=== PATIENT | female | born 1955 | race Caucasian/White ===

== ENCOUNTER → 2018-07-26 14:39 | Outpatient (CLI) | payer MEDICARE, MEDICAID, SELFPAY ==
--- NOTE | 2018-07-26 14:51 | RAD_ITS ---
STUDY: X-RAY - CERVICAL SPINE REASON FOR EXAM: Female, 63 years old. Chronic left neck pain radiating all the way down spine. TECHNIQUE: 3 view(s) of the cervical spine were obtained on 4 images. COMPARISON: None FINDINGS: There are degenerative changes of the anterior atlantoaxial articulation. Normal odontoid process. Normal cervical lordosis. There is mild anterior endplate spondylosis at C5-6 and C6-7. There is mild to moderate degenerative discogenic narrowing at C5-6 and C6-7 as well. Were multilevel degenerative arthroses of the cervical facet articulations. The vertebral soft tissue structures are unremarkable. There is no demonstrated osseous destructive process or acute fracture of the cervical spine. RAD/Cerv Spine 2 or 3 Views IMPRESSION: Degenerative changes of the cervical spine, as described. Electronically Signed: Devonte Higginbotham MD at 15:48 EST , Service support ,
--- NOTE | 2018-07-26 14:52 | RAD_ITS ---
STUDY: X-RAY - LUMBAR SPINE REASON FOR EXAM: Female, 63 years old. Chronic pain. TECHNIQUE: 3 view(s) of the lumbar spine were obtained. COMPARISON: None FINDINGS: Normal lumbar lordosis. There is no substantial scoliosis. There is a normal alignment of the vertebrae. There is anterior wedging of the T12 vertebra and multilevel degenerative changes with bridging anterolateral osteophytes of the visualized lower thoracic spine. Bridging anterior osteophytes also extend across the T12-L1 interspace. There is multilevel endplate spondylosis of the lumbar vertebrae, most prominent at L1-2. There is multi-level degenerative disc disease with multi-level mild disc space narrowing. There is no demonstrated fracture. There are degenerative arthroses of the mid to lower lumbar facet articulations. The soft tissue structures are unremarkable. RAD/Lumbar Spine 2 or 3 Views IMPRESSION: Degenerative changes of the spine, as detailed above. Electronically Signed: Devonte Higginbotham MD at 15:46 EST , Service support ,
--- OUTSIDE RECORDS SUMMARY | 2018-09-21 00:54 | XMS RPT_ITS ---
:1955 Author Organization OHIP Care Team Providers Name Role Phone Conchita Alcocer Attending Unavailable Conchita Alcocer Referring Unavailable MARIA DEL ROSARIOPRADEEP STEPHENSON Attending Unavailable MARIA DEL ROSARIO, PRADEEP Referring Unavailable MARIA DEL ROSARIO, A[place]A Admitting Unavailable TONNY EPPS Primary Care Unavailable MARIA DEL ROSARIO, PRADEEP Attending Unavailable TONNY EPPS Referring Unavailable TONNY EPPS Primary Care Unavailable PRADEEP MIX Attending Unavailable JORDAN EPPS Primary Care Unavailable JORDAN EPPS Primary Care Unavailable PRESTON MILLS Attending Unavailable ARABELLA LOVE Attending Unavailable CASSIDY NATH Attending Unavailable ABHI SANDOVAL TRACE EVIDENCE TECHNICIAN-C Consulting Unavailable ARABELLA LOVE Attending Unavailable CASSIDY NATH Attending Unavailable ARABELLA LOVE Attending Unavailable LINDSAY VALLE Consulting Unavailable SHAMIR MEDINA D.O. Consulting Unavailable MASOUD FINLEY Admitting Unavailable MASOUD FINLEY Attending Unavailable WAKE, CASSIDY Ashford Attending Unavailable CATE-LEXUS THACKER Consulting Unavailable ARABELLA LOVE Attending Unavailable SARIAH, CASSIDY Ashford Attending Unavailable IVAN, ARABELLA Attending Unavailable MAYA, -LYDIA Jenkins Attending Unavailable ALVINO, -FATOU Chen Consulting Unavailable IVAN, ARABELLA Attending Unavailable IVAN, ARABELLA Attending Unavailable IVAN, ARABELLA Attending Unavailable QUIROGADIANNE RODRIGUEZ Consulting Unavailable QUIROGADIANNE RODRIGUEZ Attending Unavailable IVAN, ARABELLA Attending Unavailable VOLNGUYỄN Alvarenga Consulting Unavailable NATALIIA, [place] M Admitting Unavailable NATALIIA, [place] M Attending Unavailable IVAN, ARABELLA Attending Unavailable ELIZABETH KO M.D. Attending Unavailable IVAN, ARABELLA Attending Unavailable IVAN, ARABELLA Attending Unavailable VONNIE AMADOR D.O. Consulting Unavailable NATALIIA, [place] M Admitting Unavailable NATALIIA, [place] M Attending Unavailable IVAN, ARABELLA Attending Unavailable PEARCH, ADRIAN L Consulting Unavailable IVAN, ARABELLA Attending Unavailable PROBLEMS PROBLEMS DATE TYPE CONDITION / CODE ATTENDING STATUS SOURCE 06/14/2016 Unknown Vitamin D MARIA DEL ROSARIO, AASIM Active [place] deficiency, [facility]Care unspecified / System E55.9(ICD-10) Repository 08/04/2015 Unknown Age-related MARIA DEL ROSARIO, AASIM Active [facility] osteoporosis [facility]Care without current System pathological Repository fracture / M81.0(ICD-10) 08/04/2015 Unknown Primary MARIA DEL ROSARIO, AASIM Active [facility] generalized [facility] (osteo)arthritis / System M15.0(ICD-10) Repository 08/18/2017 Admitting Unknown / ARABELLA LOVE Active [facility] diagnosis UNK(Unknown) Hospital Repository PROCEDURES PROCEDURES No Procedure Records FoundRESULTS RESULTS LUMBAR SPINE 2 OR 3 Observed: 07/26/2018 Status: F Source: [place] [facility] 2:52 PM [facility] [place] [place] REPOSITORY [facility] Imaging Services [address] [place] [address] Lumbar Spine 2 or 3 Views MR#: [id number] Acct: [id number] Name: RASHAWN ALMEIDA I Rep #: [id number] : 1955 F 63 From: José Miguel Higginbotham MD PCP: Status: REG CLI Study: Lumbar Spine 2 or 3 Views Date of Exam: 07/26/18 Exam# [id number] Ordering Dr: Conchita Alcocer MD STUDY: X-RAY - LUMBAR SPINE REASON FOR EXAM: Female, 63 years old. Chronic pain. TECHNIQUE: 3 view(s) of the lumbar spine were obtained. COMPARISON: None FINDINGS: Normal lumbar lordosis. There is no substantial scoliosis. There is a normal alignment of the vertebrae. There is anterior wedging of the T12 vertebra and multilevel degenerative changes with bridging anterolateral osteophytes of the visualized lower thoracic spine. Bridging anterior osteophytes also extend across the T12-L1 interspace. There is multilevel endplate spondylosis of the lumbar vertebrae, most prominent at L1-2. There is multi-level degenerative disc disease with multi-level mild disc space narrowing. There is no demonstrated fracture. There are degenerative arthroses of the mid to lower lumbar facet articulations. The soft tissue structures are unremarkable. RAD/Lumbar Spine 2 or 3 Views IMPRESSION: Degenerative changes of the spine, as detailed above. Electronically Signed: Devonte Higginbotham MD at 15:46 EST , Service support , CC: Conchita Alcocer MD Side Panel Padder: Signed CERV SPINE 2 OR 3 Observed: 07/26/2018 Status: F Source: [place] [facility] 2:52 PM [facility] [place] [place] REPOSITORY [facility] Imaging Services [address] [place] [id number] Cerv Spine 2 or 3 Views MR#: [id number] Acct: [id number] Name: RASHAWN ALMEIDA I Rep #: [id number] : 1955 F 63 From: José Miguel Higginbotham MD PCP: Status: REG CLI Study: Cerv Spine 2 or 3 Views Date of Exam: 07/26/18 Exam# [id number] Ordering Dr: Conchita Alcocer MD STUDY: X-RAY - CERVICAL SPINE REASON FOR EXAM: Female, 63 years old. Chronic left neck pain radiating all the way down spine. TECHNIQUE: 3 view(s) of the cervical spine were obtained on 4 images. COMPARISON: None FINDINGS: There are degenerative changes of the anterior atlantoaxial articulation. Normal odontoid process. Normal cervical lordosis. There is mild anterior endplate spondylosis at C5-6 and C6-7. There is mild to moderate degenerative discogenic narrowing at C5-6 and C6-7 as well. Were multilevel degenerative arthroses of the cervical facet articulations. The vertebral soft tissue structures are unremarkable. There is no demonstrated osseous destructive process or acute fracture of the cervical spine. RAD/Cerv Spine 2 or 3 Views IMPRESSION: Degenerative changes of the cervical spine, as described. Electronically Signed: Devonte Higginbotham MD at 15:48 EST , Service support , CC: Conchita Alcocer MD Side Panel Padder: Signed THERAPY NT Observed: 07/21/2018 Status: COMPLETED Source: [place] 4:50 PM [facility] [place] REPOSITORY [facility] ID: [id number] Author: Provider [facility] Service: (none) Author Type: Physician Type: Therapy (PT/OT/Speech/Resp) Filed: 07/21/2018 4:59 PM Note Text: [place] [id number] PHYSICAL THERAPY REPORT Patient: GRAYSONRASHAWNARABELLA GREGORY C.N.P. [id number] [age] F Status: REG RCR PT PHYSICAL THERAPY OUTPATIENT INITIAL EVALUATION DATE 07/21/2018 PHYSICAL THERAPY DIAGNOSIS 1. Right shoulder pain. 2. Neck pain MEDICAL DIAGNOSIS 1. Impingement syndrome of the right shoulder - M75.41 ONSET DATE 06/15 CHIEF COMPLAINTS AND FUNCTIONAL LIMITATIONS 1. The patient complains of having increased pain in the right shoulder and neck which does limit her abilities to rest as well as to perform any ADLs at home. PERSONAL FACTORS AND CO-MORBIDITIES The patient reports having a past medical history of widespread pain as well as numerous surgeries and high blood pressure. HISTORY The patient reports that for the last month or so she has noticed an increase in right shoulder pain. She states insidious onset it has been getting worse. The patient is left-handed and states that the pain has been constant in the right shoulder. She complains of pain anywhere from the neck down to the elbow. She states that it is always in the shoulder described as being in her upper trapezius area as well as varying very stiff and or neck. She reports that wakes her up at night and gets worse with lifting and better with rest. She does have an MRI scheduled for this next . EXAMINATION AND OBJECTIVE FINDINGS The patient presents with active range of motion of the right shoulder into flexion to 63 degrees with pain, abduction 46 degrees with pain, external rotation to the upper trapezius with pain and internal rotation to the PSIS. The the patient did present with a negative belly press test, positive external rotation lag sign and a positive Mitchell-Ryan test. Cervical spine active range of motion into flexion 34 degrees, extension 5 degrees, right sidebending 10 degrees, left sidebending 15 degrees, right rotation 23 degrees and left rotation 29 degrees. CLINICAL PRESENTATION The patient displays a/an evolving clinical presentation with changing characteristics. CLINICAL DECISION MAKING Moderate complexity based upon the above history, examination and clinical presentation. G CODE RATIONALE The patient was given a G Code modifier of CM due to having pain up to and 8/10. ON TODAY'S VISIT The patient was given home exercise program consisting of stretching of the neck as well as taken through ultrasound for the right upper trapezius. PROBLEM LIST 1. Increased pain in the right shoulder and neck. 2. Right shoulder impingement syndrome. SHORT-TERM GOALS 1. The patient will be independent with HEP within 1-2 weeks for continued progress at home. LONG-TERM GOALS 1. The patient will demonstrate having active range of motion of the right shoulder into flexion to grossly greater than or equal to 130 degrees within 8 weeks to reach up overhead. 2. The patient will demonstrate having pain less than or equal to a 2/10 within the right shoulder and neck area within 10 weeks to improve tolerance at home. 3. The patient will demonstrate having rotation of the neck to be grossly greater than or equal to 50 degrees bilaterally within 8- 10 weeks to be able to turn her head while driving. PROGNOSIS AND REHABILITATION POTENTIAL The patient has a good rehabilitation potential to complete therapy goals. TREATMENT PLAN Treatment plan will consist of therapeutic exercises, stretching, strengthening, ultrasound modalities as needed and home exercise program. FREQUENCY AND DURATION The patient will attend therapy three times a week for 6-12 weeks. DISCHARGE PLAN The patient will be discharged from physical therapy upon completion of all goals, reaching a plateau with physical therapy and/or maximizing physical therapy prescription. Thank you for the referral of your patient. If you have any questions, please feel free to contact me at the [facility]. Dictated By: MACKENZIE MCKEON Signed By: MACKENZIE MCKEON 07/21/18 1654 << Signature on File>> Reported By: MACKENZIE MCKEON Signed By: MACKENZIE MCKEON Tests performed at: [address] [address] PHYSICAL THERAPY Observed: 07/21/2018 Status: F Source: [facility] 4:[address] [facility] [address] [address] PHYSICAL THERAPY REPORT Patient: JAYSHREE ALMEIDAARABELLA WANGNLashaun [id number] [age] F Status: REG RCR PT PHYSICAL THERAPY OUTPATIENT INITIAL EVALUATION DATE 07/21/2018 PHYSICAL THERAPY DIAGNOSIS 1. Right shoulder pain. 2. Neck pain MEDICAL DIAGNOSIS 1. Impingement syndrome of the right shoulder - M75.41 ONSET DATE 06/15 CHIEF COMPLAINTS AND FUNCTIONAL LIMITATIONS 1. The patient complains of having increased pain in the right shoulder and neck which does limit her abilities to rest as well as to perform any ADLs at home. PERSONAL FACTORS AND CO-MORBIDITIES The patient reports having a past medical history of widespread pain as well as numerous surgeries and high blood pressure. HISTORY The patient reports that for the last month or so she has noticed an increase in right shoulder pain. She states insidious onset it has been getting worse. The patient is left-handed and states that the pain has been constant in the right shoulder. She complains of pain anywhere from the neck down to the elbow. She states that it is always in the shoulder described as being in her upper trapezius area as well as varying very stiff and or neck. She reports that wakes her up at night and gets worse with lifting and better with rest. She does have an MRI scheduled for this next . EXAMINATION AND OBJECTIVE FINDINGS The patient presents with active range of motion of the right shoulder into flexion to 63 degrees with pain, abduction 46 degrees with pain, external rotation to the upper trapezius with pain and internal rotation to the PSIS. The the patient did present with a negative belly press test, positive external rotation lag sign and a positive Mitchell-Ryan test. Cervical spine active range of motion into flexion 34 degrees, extension 5 degrees, right sidebending 10 degrees, left sidebending 15 degrees, right rotation 23 degrees and left rotation 29 degrees. CLINICAL PRESENTATION The patient displays a/an evolving clinical presentation with changing characteristics. CLINICAL DECISION MAKING Moderate complexity based upon the above history, examination and clinical presentation. G CODE RATIONALE The patient was given a G Code modifier of CM due to having pain up to and 8/10. ON TODAY'S VISIT The patient was given home exercise program consisting of stretching of the neck as well as taken through ultrasound for the right upper trapezius. PROBLEM LIST 1. Increased pain in the right shoulder and neck. 2. Right shoulder impingement syndrome. SHORT-TERM GOALS 1. The patient will be independent with HEP within 1-2 weeks for continued progress at home. LONG-TERM GOALS 1. The patient will demonstrate having active range of motion of the right shoulder into flexion to grossly greater than or equal to 130 degrees within 8 weeks to reach up overhead. 2. The patient will demonstrate having pain less than or equal to a 2/10 within the right shoulder and neck area within 10 weeks to improve tolerance at home. 3. The patient will demonstrate having rotation of the neck to be grossly greater than or equal to 50 degrees bilaterally within 8-10 weeks to be able to turn her head while driving. PROGNOSIS AND REHABILITATION POTENTIAL The patient has a good rehabilitation potential to complete therapy goals. TREATMENT PLAN Treatment plan will consist of therapeutic exercises, stretching, strengthening, ultrasound modalities as needed and home exercise program. FREQUENCY AND DURATION The patient will attend therapy three times a week for 6-12 weeks. DISCHARGE PLAN The patient will be discharged from physical therapy upon completion of all goals, reaching a plateau with physical therapy and/or maximizing physical therapy prescription. Thank you for the referral of your patient. If you have any questions, please feel free to contact me at the [facility]. Dictated By: MACKENZIE MCKEON Signed By: MACKENZIE MCKEON 07/21/18 3423 << Signature on File>> Reported By: MACKENZIE MCKEON Signed By: MACKENZIE MCKEON Tests performed at: [address] [address] PROGRESS Observed: 07/13/2018 Status: COMPLETED Source: [place] 11:46 AM [facility] REPOSITORY [facility] ID: [id number] Author: Jonathan Pugh) Kirsty Service: (none) Author Type: (none) Type: Progress Notes Filed: 07/13/2018 11:51 AM Note Text: DIRECTOR OF INSTRUCTION EMERGENCY DEPARTMENT FOLLOW UP INITIAL CONTACT Provider Action/FYI: Going to Follow up with [facility] on 07/17/18. Initial contact with patient post discharge, spoke to Patient. Patient identified by name and date : YES SUMMARY: -Patient discharged from [facility] ED on 07/12/18. -Follow up appointment on declined appointment at this time . -Medication review done yes. -Presented with: Right Shoulder Pain CONCERNS: Patient states I am supposed to follow with [facility] on Tuesday , I am just going to follow up with them right now NEW MEDICATIONS: Naproxen x 5 days MEDS HELD/DISCONTINUED: None BRIEF ED COURSE: DX Right shoulder pain. Arthritis Jonathan Zambrano RN CNPTOUTREACH Observed: 07/13/2018 Status: COMPLETED Source: [place] 12:00 AM [facility] REPOSITORY Patient Outreach (FMUPNE) RASHAWN ALMEIDA ([id number]) 1955 F Date Time Provider Department 07/13/18 JONATHAN ZAMBRANO) KUMAR During your visit today, we recorded the following information about you: Jonathan Zambrano RN 07/13/2018 11:51 AM Signed DIRECTOR OF INSTRUCTION EMERGENCY DEPARTMENT FOLLOW UP INITIAL CONTACT Provider Action/FYI: Going to Follow up with [facility] on 07/17/18. Initial contact with patient post discharge, spoke to Patient. Patient identified by name and date : YES SUMMARY: -Patient discharged from [facility] ED on 07/12/18. -Follow up appointment on declined appointment at this time . -Medication review done yes. -Presented with: Right Shoulder Pain CONCERNS: Patient states I am supposed to follow with [facility] on Tuesday , I am just going to follow up with them right now NEW MEDICATIONS: Naproxen x 5 days MEDS HELD/DISCONTINUED: None BRIEF ED COURSE: DX Right shoulder pain. Arthritis Jonathan Zambrano RN Allergies As of Date: 07/13/2018 Noted Allergy Reaction BACTRIM (SULFAMETHOXAZOLE-TRIMETH*05/25/2018 8 - GI Upset Date Reviewed: 07/04/2018 Reviewed by: Denise Peck - Fully Assessed Prescriptions as of 07/13/2018 Sig: DICLOFENAC 1 % TOPICAL GEL Apply 4 g to affected area ev* PROMETHAZINE-DM 6.25 MG-15 MG* Take 5 mL by mouth four times* ALBUTEROL SULFATE HFA 90 MCG/* Inhale 2 Puffs as instructed * LORATADINE 10 MG TABLET Take 1 tablet by mouth once d* ALPRAZOLAM 0.5 MG TABLET Take 1 tablet by mouth twice * AMLODIPINE 5 MG TABLET Take 1 tablet by mouth once d* ESCITALOPRAM 5 MG TABLET Take 1 tablet by mouth once d* GABAPENTIN 300 MG CAPSULE Take 1 capsule by mouth twice* LEVOTHYROXINE 88 MCG TABLET Take 1 tablet by mouth once d* OXYCODONE-ACETAMINOPHEN 7.5 M* Take by mouth. MIRALAX ORAL Take 1 Tablespoonful by mouth* OXYGEN (HOME THERAPY) Inhale 2 L/min as instructed * Problem List As Of Date 07/13/2018 Noted Resolved Obesity, Class II, BMI 35-39.9 [E66.9] INVALID FOR* Anxiety [F41.9] INVALID FOR* Asthma [J45.909] INVALID FOR* Dependence on supplemental oxygen [Z99.81] INVALID FOR* Diverticulosis [K57.90] INVALID FOR* DJD (degenerative joint disease) [M19.90] INVALID FOR* GERD (gastroesophageal reflux disease) [K21.9] INVALID FOR* History of cholecystectomy [Z90.49] INVALID FOR* History of hysterectomy [Z90.710] INVALID FOR* Hx of carpal tunnel repair [Z98.890] INVALID FOR* Postoperative state [Z98.890] INVALID FOR* Hx of thyroidectomy [Z98.890] INVALID FOR* Hypertension [I10] INVALID FOR* Hypothyroidism [E03.9] INVALID FOR* Osteoporosis [M81.0] INVALID FOR* Partial small bowel obstruction (HCC) [K56.600] INVALID FOR* Status post rotator cuff repair [Z98.890] INVALID FOR* Encounter Status:Closed by JONATHAN ZAMBRANO on 07/13/18 ED PROV NOTE Observed: 07/12/2018 Status: COMPLETED Source: [place] 5:01 PM [facility] REPOSITORY [facility] ID: [id number] Author: Tonny Bell Service: (none) Author Type: Physician Type: ED Provider Notes Filed: 07/12/2018 5:42 PM Note Text: [facility] [place] [facility] [place] [address] HEALTH INFORMATION MANAGEMENT EMERGENCY DEPARTMENT REPORT Patient: RASHAWN ALMEIDA JEFFREY M.D. [id number] [age] F Status: DEP ER ED Date of Service: 07/12/18 CHIEF COMPLAINT/HISTORY OF PRESENT ILLNESS A 63-year-old female seen with Adrian Arias, nurse practitioner. She is a right-hand dominant female who is having right shoulder pain. It goes toward the neck and down the right upper arm. She does a lot of guitar playing, and that really bothers her. Denies numbness in the hand. PHYSICAL EXAMINATION Tenderness over the deltoid area in the right shoulder, fairly localized. Mild tenderness in the right paracervical musculature. No neurovascular deficits of the arm. EMERGENCY DEPARTMENT COURSE On the x-ray, she has got off the acromion a small calcific spur that is developing. It is probably 7-8 mm in length. I think this may be the nidus for the point of inflammation. IMPRESSION Early calcific tendonitis, right shoulder. TREATMENT Anti-inflammatory, discharged home. <Electronically signed by TONNY BELL M.D.> 07/12/18 1741 TONNY BELL M.D. cc: TONNY BELL M.D.; ARABELLA LOVENLashaun << Signature on File>> Reported By: TONNY BELL M.D. Signed By: TONNY BELL M.D. Tests performed at: [address] [address] EMERGENCY DEPARTMENT Observed: 07/12/2018 Status: F Source: [place] [facility] 5:01 PM [facility] [place] [place] [address] HEALTH INFORMATION MANAGEMENT EMERGENCY DEPARTMENT REPORT Patient: RASHAWN ALMEIDA TONNY BELL M.D. [id number] [age] F Status: [facility] ER ED Date of Service: 07/12/18 CHIEF COMPLAINT/HISTORY OF PRESENT ILLNESS A 63-year-old female seen with Adrian Arias, nurse practitioner. She is a right-hand dominant female who is having right shoulder pain. It goes toward the neck and down the right upper arm. She does a lot of guitar playing, and that really bothers her. Denies numbness in the hand. PHYSICAL EXAMINATION Tenderness over the deltoid area in the right shoulder, fairly localized. Mild tenderness in the right paracervical musculature. No neurovascular deficits of the arm. EMERGENCY DEPARTMENT COURSE On the x-ray, she has got off the acromion a small calcific spur that is developing. It is probably 7-8 mm in length. I think this may be the nidus for the point of inflammation. IMPRESSION Early calcific tendonitis, right shoulder. TREATMENT Anti-inflammatory, discharged home. <Electronically signed by TONNY BELL M.D.> 07/12/18 1741 TONNY BELL M.D. cc: TONNY BELL M.D.; ARABELLA LOVE C.N.P. << Signature on File>> Reported By: TONNY BELL M.D. Signed By: TONNY BELL M.D. Tests performed at: [address] [address] ED PROV NOTE Observed: 07/12/2018 Status: COMPLETED Source: [place] 4:05 PM [facility] [place] REPOSITORY HNO ID: [id number] Author: Tonny Bell Service: (none) Author Type: Physician Type: ED Provider Notes Filed: 07/12/2018 4:49 PM Note Text: [facility] [place] [facility] [place] [address] HEALTH INFORMATION MANAGEMENT EMERGENCY DEPARTMENT REPORT Patient: JAYSHREE ALMEIDATONNY ABEL M.D. as dictated by ADRIAN ARIAS, DAREN [id number] [age] F Status: DEP ER ED Date of Service: 07/12/18 CHIEF COMPLAINT This is a 63-year-old female who presents with right shoulder pain. HISTORY OF PRESENT ILLNESS The patient does not know any specific injury. 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 She is left-handed actually. She has noticed just over the last 3 weeks she has developed this pain and it has this been worse over the last couple days. PAST MEDICAL HISTORY Hypertension, COPD, osteoporosis, hypothyroidism, anxiety, depression, chronic pain. PAST SURGICAL HISTORY She has had hernia repairs, thyroid, left knee, left rotator, tubal ligation, cholecystectomy, hysterectomy. SOCIAL HISTORY No alcohol, drug or tobacco use. She is . ALLERGIES No known allergies. MEDICATIONS She takes Fosamax, HydroDIURIL, ProAir, Voltaren gel topically, Norvasc, Xanax, Synthroid, Lexapro, Neurontin and Percocet. REVIEW OF SYSTEMS The patient denies any fever or chills and no redness or swelling to the joint. No weakness or syncope. No upper respiratory symptoms, cough or shortness of breath. No chest pain or palpitations. She is complaining of lateral right shoulder pain worse with movement. She states she has decreased range of motion due to pain. No numbness or paresthesia. PHYSICAL EXAMINATION Blood pressure 187/120. We will repeat this. Temperature 97.7, pulse 75, respirations 18, 96% on room air. Pain 10/10. This is a well-nourished, well-hydrated patient who is alert and active in the room. She is in no distress. Her head is atraumatic, normocephalic. Neck is supple. No neck pain, drooling or meningismus. No cervical lymphadenopathy. Lungs are clear throughout all lung germain with good air exchange. Her heart has a regular rate and rhythm without murmur, rub or gallop. Abdomen is large, round, soft, nontender to palpation. Her right shoulder is normal in appearance. There is no redness, no swelling. She is painful with palpation just over the lateral aspect of the shoulder. She has limited range of motion on abduction. She is unable to cross her arm behind her back. She does cross it in front of her normally. She has normal sensation, normal skin color and warmth. Radial pulses are 2+. Normal capillary refill. Her elbow has a normal range of motion, as well as the wrist. EMERGENCY DEPARTMENT COURSE This patient states she is intolerant to steroids. She was told not to take steroids she is not quite sure why but an oncologist told her not to take them, so she will be given a prescription for 5 days of naproxen. The x-ray shows some arthritis. No fracture seen. No dislocation. The patient will rest the arm. She is going to use some of her diclofenac gel to the shoulder. She will rest it, take the medications as prescribed and follow up with Ortho. IMPRESSION Right shoulder pain. <Electronically signed by TONNY BELL M.D.> 07/12/18 1645 TONNY BELL M.D. cc: TONNY BELL M.D.; ARABELLA LOVENLashaun << Signature on File>> Reported By: TONNY BELL M.D. Signed By: TONNY BELL M.D. Tests performed at: [facility] [id number] [place], [place] [address] ED REPORT Observed: 07/12/2018 Status: F Source: [facility] 4:05 PM [place] [address] HEALTH INFORMATION MANAGEMENT EMERGENCY DEPARTMENT REPORT Patient: RASHAWN ALMEIDA JEFFREY M.D. as dictated by DAREN DAILEY [id number] F Status: DEP ER ED Date of Service: 07/12/18 CHIEF COMPLAINT This is a 63-year-old female who presents with right shoulder pain. HISTORY OF PRESENT ILLNESS The patient does not know any specific injury. 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 She is left-handed actually. She has noticed just over the last 3 weeks she has developed this pain and it has this been worse over the last couple days. PAST MEDICAL HISTORY Hypertension, COPD, osteoporosis, hypothyroidism, anxiety, depression, chronic pain. PAST SURGICAL HISTORY She has had hernia repairs, thyroid, left knee, left rotator, tubal ligation, cholecystectomy, hysterectomy. SOCIAL HISTORY No alcohol, drug or tobacco use. She is . ALLERGIES No known allergies. MEDICATIONS She takes Fosamax, HydroDIURIL, ProAir, Voltaren gel topically, Norvasc, Xanax, Synthroid, Lexapro, Neurontin and Percocet. REVIEW OF SYSTEMS The patient denies any fever or chills and no redness or swelling to the joint. No weakness or syncope. No upper respiratory symptoms, cough or shortness of breath. No chest pain or palpitations. She is complaining of lateral right shoulder pain worse with movement. She states she has decreased range of motion due to pain. No numbness or paresthesia. PHYSICAL EXAMINATION Blood pressure 187/120. We will repeat this. Temperature 97.7, pulse 75, respirations 18, 96% on room air. Pain 10/10. This is a well-nourished, well- hydrated patient who is alert and active in the room. She is in no distress. Her head is atraumatic, normocephalic. Neck is supple. No neck pain, drooling or meningismus. No cervical lymphadenopathy. Lungs are clear throughout all lung germain with good air exchange. Her heart has a regular rate and rhythm without murmur, rub or gallop. Abdomen is large, round, soft, nontender to palpation. Her right shoulder is normal in appearance. There is no redness, no swelling. She is painful with palpation just over the lateral aspect of the shoulder. She has limited range of motion on abduction. She is unable to cross her arm behind her back. She does cross it in front of her normally. She has normal sensation, normal skin color and warmth. Radial pulses are 2+. Normal capillary refill. Her elbow has a normal range of motion, as well as the wrist. EMERGENCY DEPARTMENT COURSE This patient states she is intolerant to steroids. She was told not to take steroids she is not quite sure why but an oncologist told her not to take them, so she will be given a prescription for 5 days of naproxen. The x-ray shows some arthritis. No fracture seen. No dislocation. The patient will rest the arm. She is going to use some of her diclofenac gel to the shoulder. She will rest it, take the medications as prescribed and follow up with Ortho. IMPRESSION Right shoulder pain. <Electronically signed by TONNY BELL M.D.> 07/12/18 1645 TONNY BELL M.D. cc: TONNY BELL M.D.; ARABELLA LOVE C.N.P. << Signature on File>> Reported By: TONNY BELL M.D. Signed By: TONNY BELL M.D. Tests performed at: [address] [address] SHOULDER MIN 2 VIEW Observed: 07/12/2018 Status: F Source: [place] 12:12 PM [facility] [place], [place] REPOSITORY [address] [address] Name: TALA ALMEIDALYN Phys: ADRIAN ARIAS (ED) : [birth year] Age: 63 Sex: F Acct: [id number] Loc: ED Exam Date: 07/12/18 Status: [facility] ER Radiology No.: [id number] Unit Number: [id number] Exam # Type/Exam [id number] RAD / SHOULDER MIN 2 VIEW RT PROCEDURE: Right shoulder radiographs. HISTORY: Pain. COMPARISON: 05/30/2014 FINDINGS: 2 views obtained. No visible fracture or dislocation. There is mild acromioclavicular joint degenerative change. There is some minimal calcific tendinitis of the rotator cuff. No bony lesions are identified. Soft tissues are unremarkable. IMPRESSION: No visible fracture or dislocation. Professional interpretation provided by [facility], [place] on [id number]. Thank you for this referral. <<Signature on File>> Reported By: ELIZABETH HERRERA M.D. Signed In NovaPro By: ELIZABETH HERRERA M.D. << Signature on File>> Reported By: ELIZABETH HERRERA M.D. Signed By: ELIZABETH HERRERA M.D. Tests performed at: [address] [address] PROGRESS Observed: 07/04/2018 Status: COMPLETED Source: [place] 4:00 PM [facility] REPOSITORY [facility] ID: [id number] Author: Arabella Love Service: (none) Author Type: Nurse Practitioner Type: Progress Notes Filed: 07/14/2018 1:25 AM Note Text: SUBJECTIVE: Rashawn Almeida is a 63 year old female here today acutely because pf concerns related to cough and congestion. She was previously evaluated in the office on on 06/19/2018. Her symptoms started one week ago. She started to fell better but then she worsened. Symptoms include productive cough, congestion, nasal drainage and sore throat. PAST SURGICAL HISTORY Procedure Laterality Date - ANESTHESIA KNEE, ARTHROSCOPIC Bilateral - CHOLECYSTECTOMY - COLONOSCOPY AND POLYPECTOMY - HAND SURGERY HX Left 11/18/2016 Trigger Finger - HERNIA REPAIR HX Right - HYSTERECTOMY - ROTATOR CUFF REPAIR Left - THYROIDECTOMY - TUBAL LIGATION ACTIVE PROBLEM LIST Obesity, Class II, Bmi 35-39.9 Anxiety Asthma Dependence On Supplemental Oxygen Diverticulosis Djd (Degenerative Joint Disease) Gerd (Gastroesophageal Reflux Disease) History of Cholecystectomy History of Hysterectomy Hx of Carpal Tunnel Repair Postoperative State Hx of Thyroidectomy Hypertension Hypothyroidism Osteoporosis Partial Small Bowel Obstruction (Hcc) Status Post Rotator Cuff Repair Social History Marital status: Legally Spouse name: Years of education: Number of children: Social History Main Topics Smoking status: Never Smoker Smokeless tobacco: Never Used Alcohol use: No Drug use: No Other Topics Concern Caffeine Concern No Current Outpatient Prescriptions: loratadine (CLARITIN) 10 mg tablet Take 1 tablet by mouth once daily. Promethazine-DM (PHENERGAN-DM) 6.25-15 mg/5 mL syrup Take 5 mL by mouth four times daily as needed for Cough. diclofenac sodium (VOLTAREN) 1 % topical gel Apply 4 g to affected area every 6 hours as needed (joint pain). ALPRAZolam (XANAX) 0.5 mg tablet Take 1 tablet by mouth twice daily as needed for Anxiety. amLODIPine (NORVASC) 5 mg tablet Take 1 tablet by mouth once daily. escitalopram oxalate (LEXAPRO) 5 mg tablet Take 1 tablet by mouth once daily. gabapentin (NEURONTIN) 300 mg capsule Take 1 capsule by mouth twice daily. levothyroxine (SYNTHROID) 88 mcg tablet Take 1 tablet by mouth once daily. oxyCODONE-acetaminophen (PERCOCET) 7.5-325 mg tablet Take by mouth. polyethylene glycol 3350 (MIRALAX ORAL) Take 1 Tablespoonful by mouth once daily. OXYGEN, HOME THERAPY, Inhale 2 L/min as instructed daily at bedtime. No current facility-administered medications for this visit. REVIEW OF SYSTEMS: Review of Systems Constitutional: Positive for fatigue. HENT: Positive for postnasal drip, rhinorrhea, sinus pressure and sore throat. Negative for ear discharge and ear pain. Eyes: Negative. Respiratory: Positive for cough and wheezing. Endocrine: Negative. Genitourinary: Positive for difficulty urinating. Negative for dysuria. Musculoskeletal: Positive for arthralgias. Skin: Negative. Negative for rash. Allergic/Immunologic: Negative. Neurological: Negative. Negative for dizziness and weakness. Hematological: Negative. Psychiatric/Behavioral: Negative. PHYSICAL EXAMINATION: There were no vitals taken for this visit. No weight on file for this encounter. Physical Exam Constitutional: She is oriented to person, place, and time. She appears well-developed and well-nourished. HENT: Head: Normocephalic and atraumatic. Right Ear: Tympanic membrane normal. Left Ear: Tympanic membrane normal. Nose: Rhinorrhea present. Mouth/Throat: Uvula is midline, oropharynx is clear and moist and mucous membranes are normal. Eyes: Conjunctivae are normal. Neck: Neck supple. No thyromegaly present. Cardiovascular: Normal rate, regular rhythm and normal heart sounds. Pulmonary/Chest: Effort normal. No respiratory distress. She has wheezes. Abdominal: Soft. There is no tenderness. Musculoskeletal: She exhibits no edema. Lymphadenopathy: She has no cervical adenopathy. Neurological: She is alert and oriented to person, place, and time. Skin: Skin is warm and dry. No rash noted. Psychiatric: She has a normal mood and affect. Her behavior is normal. Vitals reviewed. ASSESSMENT/PLAN: 1. Acute bronchitis with chronic obstructive pulmonary disease (COPD) ([facility]) - ICD9: 491.22, ICD10: J44.0, J20.9 (primary diagnosis) - XR CHEST 2V FRONTAL/LAT - DOXYCYCLINE MONOHYDRATE 100 MG CAPSULE, precautions reviewed - ALBUTEROL SULFATE HFA 90 MCG/ACTUATION AEROSOL INHALER 2. URI, acute - ICD9: 465.9, ICD10: J06.9 - Discussed viral etiology and rationale for treatment. - Symptomatic treatment with prn analgesia - Supportive care with fluids and rest - PROMETHAZINE-DM 6.25 MG-15 MG/5 ML SYRUP 3. Cough - ICD9: 786.2, ICD10: R05 - PROMETHAZINE-DM 6.25 MG-15 MG/5 ML SYRUP 4. Chronic midline low back pain without sciatica - ICD9: 724.2, 338.29, ICD10: M54.5, G89.29 Chronic low back pain. Pt requesting referral to . Previously followed by Dr. Ko - CONSULT TO PAIN MGT 5. Osteoarthritis of both knees, unspecified osteoarthritis type - ICD9: 715.96, ICD10: M17.0 - CONSULT TO PAIN MGT ANESTHESIA 6. Obesity E66.9 Weight loss and increased activity recommended Arabella Love CNP A portion of this note was entered by ancillary personnel. The information has been reviewed and is an accurate reflection of the decisions I have made during the course of my encounter with this patient. . CNOV Observed: 07/04/2018 Status: COMPLETED Source: [place] 3:40 PM [facility] REPOSITORY Office Visit (FMUPNE) RASHAWN ALMEIDA ([id number]) 1955 F Date Time Provider Department 07/04/18 3:40 PM ARABELLA LOVE During your visit today, we recorded the following information about you: Temperature Pulse Respiration Blood pressure 98.7 degrees 87/minute 20/minute 122/76 Weight Height 93 kg 1.575 m Arabella Love CNP 07/14/2018 1:25 AM Signed SUBJECTIVE: Rashawn Almeida is a 63 year old female here today acutely because pf concerns related to cough and congestion. She was previously evaluated in the office on on 06/19/2018. Her symptoms started one week ago. She started to fell better but then she worsened. Symptoms include productive cough, congestion, nasal drainage and sore throat. PAST SURGICAL HISTORY Procedure Laterality Date - ANESTHESIA KNEE, ARTHROSCOPIC Bilateral - CHOLECYSTECTOMY - COLONOSCOPY AND POLYPECTOMY - HAND SURGERY HX Left 11/18/2016 Trigger Finger - HERNIA REPAIR HX Right - HYSTERECTOMY - ROTATOR CUFF REPAIR Left - THYROIDECTOMY - TUBAL LIGATION ACTIVE PROBLEM LIST Obesity, Class II, Bmi 35-39.9 Anxiety Asthma Dependence On Supplemental Oxygen Diverticulosis Djd (Degenerative Joint Disease) Gerd (Gastroesophageal Reflux Disease) History of Cholecystectomy History of Hysterectomy Hx of Carpal Tunnel Repair Postoperative State Hx of Thyroidectomy Hypertension Hypothyroidism Osteoporosis Partial Small Bowel Obstruction (Hcc) Status Post Rotator Cuff Repair Social History Marital status: Legally Spouse name: Years of education: Number of children: Social History Main Topics Smoking status: Never Smoker Smokeless tobacco: Never Used Alcohol use: No Drug use: No Other Topics Concern Caffeine Concern No Current Outpatient Prescriptions: loratadine (CLARITIN) 10 mg tablet Take 1 tablet by mouth once daily. Promethazine-DM (PHENERGAN-DM) 6.25-15 mg/5 mL syrup Take 5 mL by mouth four times daily as needed for Cough. diclofenac sodium (VOLTAREN) 1 % topical gel Apply 4 g to affected area every 6 hours as needed (joint pain). ALPRAZolam (XANAX) 0.5 mg tablet Take 1 tablet by mouth twice daily as needed for Anxiety. amLODIPine (NORVASC) 5 mg tablet Take 1 tablet by mouth once daily. escitalopram oxalate (LEXAPRO) 5 mg tablet Take 1 tablet by mouth once daily. gabapentin (NEURONTIN) 300 mg capsule Take 1 capsule by mouth twice daily. levothyroxine (SYNTHROID) 88 mcg tablet Take 1 tablet by mouth once daily. oxyCODONE-acetaminophen (PERCOCET) 7.5-325 mg tablet Take by mouth. polyethylene glycol 3350 (MIRALAX ORAL) Take 1 Tablespoonful by mouth once daily. OXYGEN, HOME THERAPY, Inhale 2 L/min as instructed daily at bedtime. No current facility-administered medications for this visit. REVIEW OF SYSTEMS: Review of Systems Constitutional: Positive for fatigue. HENT: Positive for postnasal drip, rhinorrhea, sinus pressure and sore throat. Negative for ear discharge and ear pain. Eyes: Negative. Respiratory: Positive for cough and wheezing. Endocrine: Negative. Genitourinary: Positive for difficulty urinating. Negative for dysuria. Musculoskeletal: Positive for arthralgias. Skin: Negative. Negative for rash. Allergic/Immunologic: Negative. Neurological: Negative. Negative for dizziness and weakness. Hematological: Negative. Psychiatric/Behavioral: Negative. PHYSICAL EXAMINATION: There were no vitals taken for this visit. No weight on file for this encounter. Physical Exam Constitutional: She is oriented to person, place, and time. She appears well-developed and well-nourished. HENT: Head: Normocephalic and atraumatic. Right Ear: Tympanic membrane normal. Left Ear: Tympanic membrane normal. Nose: Rhinorrhea present. Mouth/Throat: Uvula is midline, oropharynx is clear and moist and mucous membranes are normal. Eyes: Conjunctivae are normal. Neck: Neck supple. No thyromegaly present. Cardiovascular: Normal rate, regular rhythm and normal heart sounds. Pulmonary/Chest: Effort normal. No respiratory distress. She has wheezes. Abdominal: Soft. There is no tenderness. Musculoskeletal: She exhibits no edema. Lymphadenopathy: She has no cervical adenopathy. Neurological: She is alert and oriented to person, place, and time. Skin: Skin is warm and dry. No rash noted. Psychiatric: She has a normal mood and affect. Her behavior is normal. Vitals reviewed. ASSESSMENT/PLAN: 1. Acute bronchitis with chronic obstructive pulmonary disease (COPD) ([facility]) - ICD9: 491.22, ICD10: J44.0, J20.9 (primary diagnosis) - XR CHEST 2V FRONTAL/LAT - DOXYCYCLINE MONOHYDRATE 100 MG CAPSULE, precautions reviewed - ALBUTEROL SULFATE HFA 90 MCG/ACTUATION AEROSOL INHALER 2. URI, acute - ICD9: 465.9, ICD10: J06.9 - Discussed viral etiology and rationale for treatment. - Symptomatic treatment with prn analgesia - Supportive care with fluids and rest - PROMETHAZINE-DM 6.25 MG-15 MG/5 ML SYRUP 3. Cough - ICD9: 786.2, ICD10: R05 - PROMETHAZINE-DM 6.25 MG-15 MG/5 ML SYRUP 4. Chronic midline low back pain without sciatica - ICD9: 724.2, 338.29, ICD10: M54.5, G89.29 Chronic low back pain. Pt requesting referral to . Previously followed by Dr. Ko - CONSULT TO PAIN MGT 5. Osteoarthritis of both knees, unspecified osteoarthritis type - ICD9: 715.96, ICD10: M17.0 - CONSULT TO PAIN MGT ANESTHESIA 6. Obesity E66.9 Weight loss and increased activity recommended Arabella Love CNP A portion of this note was entered by ancillary personnel. The information has been reviewed and is an accurate reflection of the decisions I have made during the course of my encounter with this patient. . Referring Provider: SELF [[id number]] Allergies As of Date: 07/04/2018 Noted Allergy Reaction BACTRIM (SULFAMETHOXAZOLE-TRIMETH*05/25/2018 8 - GI Upset Date Reviewed: 07/04/2018 Reviewed by: Denise Peck - Fully Assessed Reason for Visit: URI [115] Cmt: Still sick Cough [28] Fatigue [46] Reason For Visit History Recorded Primary Visit Diagnosis:Acute bronchitis with chronic obstructive pulmonary disease (COPD) ([facility]) [J44.0, J20.9] Other Visit Diagnoses:URI, acute [J06.9] Cough [R05] Chronic midline low back pain without sciatica [M54.5, G89.29] Osteoarthritis of both knees, unspecified osteoarthritis type [M17.0] Obesity, Class II, BMI 35-39.9 [E66.9] Order(s):Promethazine-DM (PHENERGAN-DM) 6.25-15 mg/5 mL syrupTake 5 mL by mouth four times daily as needed for Cough.Disp: 180 mLRfl: 0 XR CHEST 2V FRONTAL/LAT [[id number]] Order #: [id number] FUTURE [] doxycycline monohydrate (MONODOX) 100 mg capsuleTake 1 capsule by mouth twice daily for 7 days.Disp: 14 capsuleRfl: 0 albuterol HFA (PROAIR HFA) 90 mcg/actuation inhalerInhale 2 Puffs as instructed every 4 hours as needed for Wheezing/Shortness of Breath.Disp: 1 InhalerRfl: 2 CONSULT TO [facility] MGT ANESTHESIA [[id number]] Order #: [id number]: 1 Prescriptions as of 07/04/2018 Sig: PROMETHAZINE-DM 6.25 MG-15 MG* Take 5 mL by mouth four times* LORATADINE 10 MG TABLET Take 1 tablet by mouth once d* X DICLOFENAC 1 % TOPICAL GEL Apply 4 g to affected area ev* ALPRAZOLAM 0.5 MG TABLET Take 1 tablet by mouth twice * AMLODIPINE 5 MG TABLET Take 1 tablet by mouth once d* ESCITALOPRAM 5 MG TABLET Take 1 tablet by mouth once d* GABAPENTIN 300 MG CAPSULE Take 1 capsule by mouth twice* LEVOTHYROXINE 88 MCG TABLET Take 1 tablet by mouth once d* OXYCODONE-ACETAMINOPHEN 7.5 M* Take by mouth. MIRALAX ORAL Take 1 Tablespoonful by mouth* OXYGEN (HOME THERAPY) Inhale 2 L/min as instructed * DOXYCYCLINE MONOHYDRATE 100 M* Take 1 capsule by mouth twice* ALBUTEROL SULFATE HFA 90 MCG/* Inhale 2 Puffs as instructed * Problem List As Of Date 07/04/2018 Noted Resolved Obesity, Class II, BMI 35-39.9 [E66.9] INVALID FOR* Anxiety [F41.9] INVALID FOR* Asthma [J45.909] INVALID FOR* Dependence on supplemental oxygen [Z99.81] INVALID FOR* Diverticulosis [K57.90] INVALID FOR* DJD (degenerative joint disease) [M19.90] INVALID FOR* GERD (gastroesophageal reflux disease) [K21.9] INVALID FOR* History of cholecystectomy [Z90.49] INVALID FOR* History of hysterectomy [Z90.710] INVALID FOR* Hx of carpal tunnel repair [Z98.890] INVALID FOR* Postoperative state [Z98.890] INVALID FOR* Hx of thyroidectomy [Z98.890] INVALID FOR* Hypertension [I10] INVALID FOR* Hypothyroidism [E03.9] INVALID FOR* Osteoporosis [M81.0] INVALID FOR* Partial small bowel obstruction (HCC) [K56.600] INVALID FOR* Status post rotator cuff repair [Z98.890] INVALID FOR* Prescriptions ordered this encounter Disp Refills Start End PROMETHAZINE-DM 6.25 MG-15 MG/5 ML S* 180 * 0 07/04/2018 Route: ORAL Sig: Take 5 mL by mouth four times daily as needed for Cough. DOXYCYCLINE MONOHYDRATE 100 MG CAPSU* 14 c* 0 07/04/2018 07/11/2018 Route: ORAL Sig: Take 1 capsule by mouth twice daily for 7 days. ALBUTEROL SULFATE HFA 90 MCG/ACTUATI* 1 In* 2 07/04/2018 Route: INHALATION Sig: Inhale 2 Puffs as instructed every 4 hours as needed for Wheezing/Shortness of Breath. Medications Discontinued During This Encounter Promethazine-DM (PHENERGAN-DM) 6.25-* 180 * 0 06/19/2018 07/04/2018 Route: ORAL Sig: Take 5 mL by mouth four times daily as needed for Cough. Disc: Reason for discontinue is not on file. Disposition: Return if symptoms worsen or fail to improve. Follow-up and Disposition History Recorded Encounter Status:Closed by ARABELLA LOVE on 07/14/18 PROGRESS Observed: 06/19/2018 Status: COMPLETED Source: [place] 2:12 PM [facility] [place] REPOSITORY [facility] ID: [id number] Author: Arabella Love Service: (none) Author Type: Nurse Practitioner Type: Progress Notes Filed: 07/03/2018 11:00 AM Note Text: Transitional Care Management Progress Note The patients TCM visit was performed within the 7 days of discharge. The patient presented to [facility] ER on 06/12/18 due to abdominal pain and diarrhea. She was admitted due to a partial bowel obstruction, presumed to be related to adhesions. She was provided bowel rest and IV fluids. She declined use of NG tube. Today she reports her bowel are moving on a daily basis. She denies nausea, vomiting and abdominal pain. Today she also reports URI symptoms including nasal drainage, congestion and cough. Her cough is productive with clear mucous. She denies fever. There is no chest pain or wheezing. Symptoms began two days ago. She is not taking anything for her symptoms at this time. Patient's Date of discharge: 06/16/2018 Date of initial coordinator contact after discharge: 06/19/2018 Discharge diagnosis: Bowel Obstruction Medication review completed Yes I have reviewed the patient?s last hospital course including diagnostic testing performed during this hospitalization, their discharge medications, and my assessment and plan with the patient and any family members present at today?s visit. PAST MEDICAL HISTORY: Reviewed and updated ALLERGIES: Reviewed and updated MEDICATIONS: Reviewed and updated SOCIAL HISTORY: Reviewed and updated FAMILY HISTORY: Reviewed and updated Current Outpatient Prescriptions: - ALPRAZolam (XANAX) 0.5 mg tablet - amLODIPine (NORVASC) 5 mg tablet - escitalopram oxalate (LEXAPRO) 5 mg tablet - gabapentin (NEURONTIN) 300 mg capsule - levothyroxine (SYNTHROID) 88 mcg tablet - oxyCODONE-acetaminophen (PERCOCET) 7.5-325 mg tablet - diclofenac sodium (VOLTAREN) 1 % topical gel - polyethylene glycol 3350 (MIRALAX ORAL) - OXYGEN, HOME THERAPY, - codeine-guaiFENesin (CHERATUSSIN AC) 10-100 mg/5 mL syrup - hydroCHLOROthiazide (HYDRODIURIL, ESIDRIX) 25 mg tablet - cetirizine (ZYRTEC) 10 mg tablet REVIEW OF SYSTEMS Review of Systems Constitutional: Negative for chills, fatigue and fever. HENT: Positive for congestion and postnasal drip. Negative for ear pain and sore throat. Respiratory: Positive for cough and wheezing. Negative for chest tightness and shortness of breath. Cardiovascular: Negative for chest pain, palpitations and leg swelling. Gastrointestinal: Negative for abdominal pain, constipation, diarrhea, nausea and vomiting. Musculoskeletal: Negative for back pain, gait problem, joint swelling, myalgias and neck pain. Skin: Negative for rash and wound. Neurological: Negative for dizziness, numbness and headaches. Psychiatric/Behavioral: Negative for dysphoric mood. The patient is not nervous/anxious. PHYSICAL EXAM BP 132/86 Pulse 70 Temp 36.4 ?C (97.6 ?F) Resp 20 Ht 157.5 cm (5' 2) Wt 93.1 kg (205 lb 3.2 oz) SpO2 96% BMI 37.53 kg/m? BMI 37.53 kg/(m2) Physical Exam Constitutional: She is oriented to person, place, and time. Vital signs are normal. She appears well-developed and well-nourished. HENT: Head: Normocephalic and atraumatic. Right Ear: External ear normal. Left Ear: External ear normal. Nose: Nose normal. Mouth/Throat: Oropharynx is clear and moist. Eyes: Pupils are equal, round, and reactive to light. Conjunctivae and EOM are normal. Neck: Normal range of motion. Neck supple. No thyromegaly present. Cardiovascular: Normal rate, regular rhythm, normal heart sounds and intact distal pulses. Pulmonary/Chest: Effort normal. She has wheezes. She has no rales. She exhibits no tenderness. Abdominal: Soft. Bowel sounds are normal. She exhibits no distension. There is no rebound and no guarding. Musculoskeletal: Normal range of motion. Neurological: She is alert and oriented to person, place, and time. She has normal strength and normal reflexes. Skin: Skin is warm, dry and intact. No rash noted. No erythema. Psychiatric: She has a normal mood and affect. Her speech is normal and behavior is normal. Judgment and thought content normal. Nursing note and vitals reviewed. 1. I have reviewed the patient record including associated test results during the last hospitalization Yes 2. I have reviewed Lab test Yes 3. I have reviewed Radiology test Yes 4. I reviewed assessment/plan with the patient/family member Yes ASSESSMENT/PLAN: 1. Partial small bowel obstruction (HCC) - ICD9: 560.9, ICD10: K56.600 Recent hospitalization for PSBO, now resolved. 2. URI, acute - ICD9: 465.9, ICD10: J06.9 (primary diagnosis) - Discussed viral etiology and rationale for treatment. - Symptomatic treatment with prn analgesia - Supportive care with fluids and rest - LORATADINE 10 MG TABLET - PROMETHAZINE-DM 6.25 MG-15 MG/5 ML SYRUP 3. Cough - ICD9: 786.2, ICD10: R05 - PROMETHAZINE-DM 6.25 MG-15 MG/5 ML SYRUP 4. Osteoarthritis of both knees, unspecified osteoarthritis type - ICD9: 715.96, ICD10: M17.0 Pt requesting refill of medication - DICLOFENAC 1 % TOPICAL GEL 5. Obesity, Class II, BMI 35-39.9 - ICD9: 278.00, ICD10: E66.9 Weight loss and increased activity recommended Arabella Love CNP Portions of this note have been entered by ancillary staff. I have reviewed and when necessary edited, so that they are an adequate record of my encounter with this patient. June 19, 2018 2:12 PM LUCRETIA Observed: 06/19/2018 Status: COMPLETED Source: [place] 2:00 PM [facility] REPOSITORY Office Visit ([facility]) RASHAWN ALMEIDA ([id number]) 1955 F Date Time Provider Department 06/19/18 2:00 PM ARABELLA LOVE JIM During your visit today, we recorded the following information about you: Temperature Pulse Respiration Blood pressure 97.6 degrees 70/minute 20/minute 132/86 Weight Height 93.1 kg 1.575 m Arabella Love CNP 07/03/2018 11:00 AM Signed Transitional Care Management Progress Note The patients TCM visit was performed within the 7 days of discharge. The patient presented to [facility] on 06/12/18 due to abdominal pain and diarrhea. She was admitted due to a partial bowel obstruction, presumed to be related to adhesions. She was provided bowel rest and IV fluids. She declined use of NG tube. Today she reports her bowel are moving on a daily basis. She denies nausea, vomiting and abdominal pain. Today she also reports URI symptoms including nasal drainage, congestion and cough. Her cough is productive with clear mucous. She denies fever. There is no chest pain or wheezing. Symptoms began two days ago. She is not taking anything for her symptoms at this time. Patient's Date of discharge: 06/16/2018 Date of initial coordinator contact after discharge: 06/19/2018 Discharge diagnosis: Bowel Obstruction Medication review completed Yes I have reviewed the patient?s last hospital course including diagnostic testing performed during this hospitalization, their discharge medications, and my assessment and plan with the patient and any family members present at today?s visit. PAST MEDICAL HISTORY: Reviewed and updated ALLERGIES: Reviewed and updated MEDICATIONS: Reviewed and updated SOCIAL HISTORY: Reviewed and updated FAMILY HISTORY: Reviewed and updated Current Outpatient Prescriptions: - ALPRAZolam (XANAX) 0.5 mg tablet - amLODIPine (NORVASC) 5 mg tablet - escitalopram oxalate (LEXAPRO) 5 mg tablet - gabapentin (NEURONTIN) 300 mg capsule - levothyroxine (SYNTHROID) 88 mcg tablet - oxyCODONE-acetaminophen (PERCOCET) 7.5-325 mg tablet - diclofenac sodium (VOLTAREN) 1 % topical gel - polyethylene glycol 3350 (MIRALAX ORAL) - OXYGEN, HOME THERAPY, - codeine-guaiFENesin (CHERATUSSIN AC) 10-100 mg/5 mL syrup - hydroCHLOROthiazide (HYDRODIURIL, ESIDRIX) 25 mg tablet - cetirizine (ZYRTEC) 10 mg tablet REVIEW OF SYSTEMS Review of Systems Constitutional: Negative for chills, fatigue and fever. HENT: Positive for congestion and postnasal drip. Negative for ear pain and sore throat. Respiratory: Positive for cough and wheezing. Negative for chest tightness and shortness of breath. Cardiovascular: Negative for chest pain, palpitations and leg swelling. Gastrointestinal: Negative for abdominal pain, constipation, diarrhea, nausea and vomiting. Musculoskeletal: Negative for back pain, gait problem, joint swelling, myalgias and neck pain. Skin: Negative for rash and wound. Neurological: Negative for dizziness, numbness and headaches. Psychiatric/Behavioral: Negative for dysphoric mood. The patient is not nervous/anxious. PHYSICAL EXAM BP 132/86 Pulse 70 Temp 36.4 ?C (97.6 ?F) Resp 20 Ht 157.5 cm (5' 2) Wt 93.1 kg (205 lb 3.2 oz) SpO2 96% BMI 37.53 kg/m? BMI 37.53 kg/(m2) Physical Exam Constitutional: She is oriented to person, place, and time. Vital signs are normal. She appears well-developed and well-nourished. HENT: Head: Normocephalic and atraumatic. Right Ear: External ear normal. Left Ear: External ear normal. Nose: Nose normal. Mouth/Throat: Oropharynx is clear and moist. Eyes: Pupils are equal, round, and reactive to light. Conjunctivae and EOM are normal. Neck: Normal range of motion. Neck supple. No thyromegaly present. Cardiovascular: Normal rate, regular rhythm, normal heart sounds and intact distal pulses. Pulmonary/Chest: Effort normal. She has wheezes. She has no rales. She exhibits no tenderness. Abdominal: Soft. Bowel sounds are normal. She exhibits no distension. There is no rebound and no guarding. Musculoskeletal: Normal range of motion. Neurological: She is alert and oriented to person, place, and time. She has normal strength and normal reflexes. Skin: Skin is warm, dry and intact. No rash noted. No erythema. Psychiatric: She has a normal mood and affect. Her speech is normal and behavior is normal. Judgment and thought content normal. Nursing note and vitals reviewed. 1. I have reviewed the patient record including associated test results during the last hospitalization Yes 2. I have reviewed Lab test Yes 3. I have reviewed Radiology test Yes 4. I reviewed assessment/plan with the patient/family member Yes ASSESSMENT/PLAN: 1. Partial small bowel obstruction (HCC) - ICD9: 560.9, ICD10: K56.600 Recent hospitalization for PSBO, now resolved. 2. URI, acute - ICD9: 465.9, ICD10: J06.9 (primary diagnosis) - Discussed viral etiology and rationale for treatment. - Symptomatic treatment with prn analgesia - Supportive care with fluids and rest - LORATADINE 10 MG TABLET - PROMETHAZINE-DM 6.25 MG-15 MG/5 ML SYRUP 3. Cough - ICD9: 786.2, ICD10: R05 - PROMETHAZINE-DM 6.25 MG-15 MG/5 ML SYRUP 4. Osteoarthritis of both knees, unspecified osteoarthritis type - ICD9: 715.96, ICD10: M17.0 Pt requesting refill of medication - DICLOFENAC 1 % TOPICAL GEL 5. Obesity, Class II, BMI 35-39.9 - ICD9: 278.00, ICD10: E66.9 Weight loss and increased activity recommended Arabella Love CNP Portions of this note have been entered by ancillary staff. I have reviewed and when necessary edited, so that they are an adequate record of my encounter with this patient. June 19, 2018 2:12 PM Referring Provider: JORDAN EPPS [[id number]] Allergies As of Date: 06/19/2018 Noted Allergy Reaction BACTRIM (SULFAMETHOXAZOLE-TRIMETH*05/25/2018 8 - GI Upset Date Reviewed: 06/19/2018 Reviewed by: Arabella Love - Fully Assessed Reason for Visit: Transition Of Care [4074] Cmt: Bowel Obstruction URI [115] Cmt: 1 week Primary Visit Diagnosis:URI, acute [J06.9] Other Visit Diagnoses:Partial small bowel obstruction (HCC) [K56.600] Cough [R05] Osteoarthritis of both knees, unspecified osteoarthritis type [M17.0] Obesity, Class II, BMI 35-39.9 [E66.9] Order(s):loratadine (CLARITIN) 10 mg tabletTake 1 tablet by mouth once daily.Disp: 30 tabletRfl: 0 Promethazine-DM (PHENERGAN-DM) 6.25-15 mg/5 mL syrupTake 5 mL by mouth four times daily as needed for Cough.Disp: 180 mLRfl: 0 diclofenac sodium (VOLTAREN) 1 % topical gelApply 4 g to affected area every 6 hours as needed (joint pain).Disp: 1 TubeRfl: 0 Prescriptions as of 06/19/2018 Sig: DICLOFENAC 1 % TOPICAL GEL Apply 4 g to affected area ev* ALPRAZOLAM 0.5 MG TABLET Take 1 tablet by mouth twice * AMLODIPINE 5 MG TABLET Take 1 tablet by mouth once d* ESCITALOPRAM 5 MG TABLET Take 1 tablet by mouth once d* GABAPENTIN 300 MG CAPSULE Take 1 capsule by mouth twice* LEVOTHYROXINE 88 MCG TABLET Take 1 tablet by mouth once d* OXYCODONE-ACETAMINOPHEN 7.5 M* Take by mouth. MIRALAX ORAL Take 1 Tablespoonful by mouth* OXYGEN (HOME THERAPY) Inhale 2 L/min as instructed * LORATADINE 10 MG TABLET Take 1 tablet by mouth once d* PROMETHAZINE-DM 6.25 MG-15 MG* Take 5 mL by mouth four times* Problem List As Of Date 06/19/2018 Noted Resolved Obesity, Class II, BMI 35-39.9 [E66.9] INVALID FOR* Anxiety [F41.9] INVALID FOR* Asthma [J45.909] INVALID FOR* Dependence on supplemental oxygen [Z99.81] INVALID FOR* Diverticulosis [K57.90] INVALID FOR* DJD (degenerative joint disease) [M19.90] INVALID FOR* GERD (gastroesophageal reflux disease) [K21.9] INVALID FOR* History of cholecystectomy [Z90.49] INVALID FOR* History of hysterectomy [Z90.710] INVALID FOR* Hx of carpal tunnel repair [Z98.890] INVALID FOR* Postoperative state [Z98.890] INVALID FOR* Hx of thyroidectomy [Z98.890] INVALID FOR* Hypertension [I10] INVALID FOR* Hypothyroidism [E03.9] INVALID FOR* Osteoporosis [M81.0] INVALID FOR* Partial small bowel obstruction (HCC) [K56.600] INVALID FOR* Status post rotator cuff repair [Z98.890] INVALID FOR* Prescriptions ordered this encounter Disp Refills Start End LORATADINE 10 MG TABLET 30 t* 0 06/19/2018 Route: ORAL Sig: Take 1 tablet by mouth once daily. PROMETHAZINE-DM 6.25 MG-15 MG/5 ML S* 180 * 0 06/19/2018 Route: ORAL Sig: Take 5 mL by mouth four times daily as needed for Cough. DICLOFENAC 1 % TOPICAL GEL 1 Tu* 0 06/19/2018 Route: TOPICAL Sig: Apply 4 g to affected area every 6 hours as needed (joint pain). Medications Discontinued During This Encounter hydroCHLOROthiazide (HYDRODIURIL, ES* 04/29/2018 06/19/2018 Class: Historical Med Route: ORAL Sig: Take 1 tablet by mouth once daily. Disc: Discontinued by Patient cetirizine (ZYRTEC) 10 mg tablet 06/19/2018 Class: Historical Med Route: ORAL Sig: Take 10 mg by mouth as needed for Cold/Allergy Symptoms. Disc: Discontinued by Patient codeine-guaiFENesin (CHERATUSSIN AC)* 200 * 0 06/17/2018 06/19/2018 Class: Call Rx Route: ORAL Sig: Take 10 mL by mouth three times daily as needed for up to 7 days. Patient not taking: Reported on 06/19/2018 Disc: Discontinued by Patient diclofenac sodium (VOLTAREN) 1 % top* 04/26/2018 06/19/2018 Class: Historical Med Route: TOPICAL Sig: Apply 4 g to affected area every 6 hours as needed for Pain. Disc: Reason for discontinue is not on file. Disposition: Return if symptoms worsen or fail to improve. Follow-up and Disposition History Recorded Encounter Status:Closed by ARABELLA LOVE on 07/03/18 ALISON Observed: 06/17/2018 Status: COMPLETED Source: [place] 12:00 AM [facility] RASHAWN AL[facility] ([id number]) 1955 F Date Time Provider Department 06/17/18 TELMA KEANE During your visit today, we recorded the following information about you: Monse Lawrence 06/17/2018 11:43 AM Signed Patient calls today. Reason for Call: Patient just got out of hospital and is coughing and would like Cough medicine called into [facility] in [place]. She is a patient of Dr Woods. [phone] (home) [phone] (cell) Patient last appointment: Visit date not found Monse Keane MD, 06/17/2018 12:21 PM Signed done Monse Lawrence 06/17/2018 12:25 PM Signed Patient was called today. Reason for Call: [facility] [phone] (home) [phone] (cell) Patient last appointment: Visit date not found Monse Lawrence Allergies As of Date: 06/17/2018 Noted Allergy Reaction BACTRIM (SULFAMETHOXAZOLE-TRIMETH*05/25/2018 16 - Unknown SULFADIAZINE 05/25/2018 16 - Unknown Date Reviewed: 05/25/2018 Reviewed by: Toshia Noel) Juan - Fully Assessed Reason for Visit: Refill Request [94] Primary Visit Diagnosis:Cough [R05] Order(s):codeine-guaiFENesin (CHERATUSSIN AC) 10-100 mg/5 mL syrupTake 10 mL by mouth three times daily as needed for up to 7 days.Disp: 200 mLRfl: 0 Prescriptions as of 06/17/2018 Sig: CODEINE 10 MG-GUAIFENESIN 100* Take 10 mL by mouth three romie* ALPRAZOLAM 0.5 MG TABLET Take 1 tablet by mouth twice * AMLODIPINE 5 MG TABLET Take 1 tablet by mouth once d* ESCITALOPRAM 5 MG TABLET Take 1 tablet by mouth once d* GABAPENTIN 300 MG CAPSULE Take 1 capsule by mouth twice* HYDROCHLOROTHIAZIDE 25 MG TAB* Take 1 tablet by mouth once d* LEVOTHYROXINE 88 MCG TABLET Take 1 tablet by mouth once d* OXYCODONE-ACETAMINOPHEN 7.5 M* Take by mouth. DICLOFENAC 1 % TOPICAL GEL Apply 4 g to affected area ev* CETIRIZINE 10 MG TABLET Take 10 mg by mouth as needed* MIRALAX ORAL Take 1 Tablespoonful by mouth* OXYGEN (HOME THERAPY) Inhale 2 L/min as instructed * Problem List As Of Date: 06/17/2018 (None) Prescriptions ordered this encounter Disp Refills Start End CODEINE 10 MG-GUAIFENESIN 100 MG/5 M* 200 * 0 06/17/2018 06/24/2018 Class: Call Rx Route: ORAL Sig: Take 10 mL by mouth three times daily as needed for up to 7 days. Encounter Status:Closed by TELMA KEANE MD on 06/17/18 CNDS Observed: 06/16/2018 Status: COMPLETED Source: [place] 7:54 AM [facility] REPOSITORY O ID: [id number] Author: hO Boykin Service: (none) Author Type: Physician Type: Discharge Summaries Filed: 06/29/2018 9:53 PM Note Text: [facility] [place] [address] HEALTH INFORMATION MANAGEMENT CLINICAL RESUME Patient: RASHAWN ALMEIDA ROBERT M M.D. [id number] [age] F Status: DIS IN [facility] 3904-B Date of Admission: 06/13/18 Date of Discharge: 06/16/18 REASON FOR ADMISSION A 63-year-old white female with crampy abdominal pain, really was not throwing up much. She has had small bowel obstructions from adhesions in the past. No obvious hernias. Comes in again with what appears to be a partial small bowel with adhesions. She quickly turned around though within a day or two. Films were better, passing gas, moving her bowels. She was sent home on 06/16/2018, regular diet, resume home meds. Follow up in the office in a few weeks. <Electronically signed by OH BOYKIN M.D.> 06/19/18 0802 OH BOYKIN M.D. cc: HO BOYKIN M.D. << Signature on File>> Reported By: OH BOYKIN M.D. Signed By: OH BOYKIN M.D. Tests performed at: [place] [address] CLINICAL RESUME Observed: 06/16/2018 Status: F Source: [place] 7:54 AM [facility] [place] [address] HEALTH INFORMATION MANAGEMENT CLINICAL RESUME Patient: TALA ALMEIDALYN OH BOYKIN M.D. [id number] [age] F Status: DIS IN [facility]04-B Date of Admission: 06/13/18 Date of Discharge: 06/16/18 REASON FOR ADMISSION A 63-year-old white female with crampy abdominal pain, really was not throwing up much. She has had small bowel obstructions from adhesions in the past. No obvious hernias. Comes in again with what appears to be a partial small bowel with adhesions. She quickly turned around though within a day or two. Films were better, passing gas, moving her bowels. She was sent home on 06/16/2018, regular diet, resume home meds. Follow up in the office in a few weeks. <Electronically signed by OH BOYKIN M.D.> 06/19/18 0802 OH BOYKIN M.D. cc: OH BOYKIN M.D. << Signature on File>> Reported By: OH BOYKIN M.D. Signed By: OH BOYKIN M.D. Tests performed at: [address] [address] CBC Collected: 06/15/2018 Status: F Source: [facility] 4:03 AM HOSPITAL REPOSITORY Order Comment: Comment: DAILY TYPE CODE TESTS RESULT OUT OF RANGE REFERENCE UNITS LAB L200.0100 4.5-10.0 x10(3) Normal WBC 9.2 LAB L200.0200 3.30-5.00 x10(6) Normal RBC 4.26 LAB L200.0210 12.0-16.0 g/dL Normal HGB 12.5 LAB L200.0220 36.0-48.0 % Normal HCT 37.3 LAB L200.0230 80.0-99.0 fl Normal MCV 87.7 LAB L200.0240 28.5-32.9 pg Normal MCH 29.4 LAB L200.0250 33.0-36.0 g/dL Normal MCHC 33.5 LAB L200.0260 12.5-15.7 % Normal RDW 13.7 LAB L200.0270 150-450 X10(3) Normal PLT 169 LAB L200.0290 7.5-9.5 fl Normal MPV 8.8 LAB L200.0300 45.0-73.0 % High NEUT% 77.3 LAB L200.0310 16.0-48.0 % Low LYMPH% 14.6 LAB L200.0320 4.3-11.2 % Normal MONO% 5.0 LAB L200.0330 0.5-4.9 % Normal EOS% 2.1 LAB L200.0340 0.0-1.0 % Normal BASO% 1.0 LAB L200.0350 1.40-6.50 x10(3) High NEUT# 7.10 LAB L200.0360 1.00-3.50 x10(3) Normal LYMPH# 1.30 LAB L200.0370 0.30-0.80 x10(3) Normal MONO# 0.50 LAB L200.0380 0.00-0.54 x10(3) Normal EOS# 0.20 LAB L200.0390 0.00-0.10 x10(3) Normal BASO# 0.10 Performed By: #### L200.0010 #### [facility] [address] [place] [id number] RENAL Collected: 06/15/2018 Status: F Source: [facility] 4:03 AM HOSPITAL REPOSITORY Order Comment: Comment: DAILY TYPE CODE TESTS RESULT OUT OF RANGE REFERENCE UNITS LAB L100.0060 82-115 mg/dL GLUCOSE Normal 113 LAB L100.0110 8-23 mg/dL Low BUN 3 LAB L100.0131 0.50-0.90 mg/dL Normal CREATININE 0.89 LAB L100.0140 8.8-10.2 mg/dL Low CALCIUM 8.6 LAB L100.0150 135-145 mmol/L SODIUM Normal 139 LAB L100.0160 3.5-5.0 mmol/L Normal POTASSIUM 4.2 LAB L100.0170 98-107 mmol/L CHLORIDE Normal 101 LAB L100.0180 22-29 mmol/L TCO2 Normal 26 LAB L100.0185 15-22 mmol/L ANION Normal GAP 16.2 LAB L100.0210 3.5-5.2 g/dL ALBUMIN Normal 3.5 LAB L100.0270 2.5-4.5 mg/dL Normal PHOSPHORUS 3.3 LAB L100.0274 eGFR Normal nonAFR Rohan > 60 ml/Min/1.73m 2 LAB L100.0275 eGFR if Normal AFR ROHAN > 60 ml/min/1.73m 2 Result Comment: eGFR >= 60 Indicates normal kidney function. * eGFR IS AN ESTIMATE * (AFR ROHAN = ) (non-AFR AM = NON-) MDRD calculation used in the eGFR should not be used to dose medications. For further limitations of the eGFR please refer to the Physician Website or the National Kidney Disease Education Program website (www.nkdep.nih.gov). Performed By: #### L100.0020 #### [facility] [address] [place] [id number] ABDOMEN (KUB)1 VIEW Observed: 06/15/2018 Status: F Source: [place] 4:00 AM [facility] [place] [place] REPOSITORY [address] [address] Name: RASHAWN ALMEIDA Phys: OH BOYKIN M.D. : [birth year] Age: 63 Sex: F Acct: [id number] Loc: 3SEAST Exam Date: 06/15/18 Status: ADM IN Radiology No.: [id number] Unit Number: [id number] Exam # Type/Exam [id number] RAD / ABDOMEN (KUB)1 VIEW ABDOMEN AP portable supine image: Clinical Indication: Small bowel obstruction. Comparison Study: 06/14/2018. The intestinal gas pattern is normal. No visceromegaly, soft tissue mass, pneumoperitoneum or significant calcification is seen. No skeletal abnormality is seen. Syndrome contrast material from recent CT evaluation scattered throughout the large L., unchanged in appearance. IMPRESSION: [] Negative abdomen. Professional interpretation provided by [facility], [place] on [employer]. Thank you for this referral. <<Signature on File>> Reported By: ALEYDA GUALLPA D.O. Signed In Nova[employer] By: ALEYDA GUALLPA D.O. << Signature on File>> Reported By: ALEYDA GUALLPA D.O. Signed By: ALEYDA GUALLPA D.O. Tests performed at: [address] [address] ED PROV NOTE Observed: 06/14/2018 Status: COMPLETED Source: [place] 12:50 PM [facility] REPOSITORY [facility] ID: [id number] Author: Vonnie Amador Service: (none) Author Type: Physician Type: ED Provider Notes Filed: 06/29/2018 9:50 PM Note Text: [place] [address] HEALTH INFORMATION MANAGEMENT EMERGENCY DEPARTMENT REPORT Patient: RASHAWN ALMEIDA VONNIE AMADOR D.O. [id number] [age] F Status: ADM IN [facility] 3904-B Date of Service: 06/13/18 CHIEF COMPLAINT Abdominal pain. HISTORY OF PRESENT ILLNESS This is a 63-year-old female with epigastric abdominal pain, says it started yesterday, got worse today. She has not been vomiting but she is nauseous, said she does not remember when she had her last bowel movement. She has a history of bowel obstruction. She has had these before. They resolved spontaneously. She has had some abdominal hernia repairs and has had mesh put in place. The patient states that she has had no fevers or chills with this. She does not have chest pain, just epigastric pain. REVIEW OF SYSTEMS Other than the pain and the nausea, no vomiting or diarrhea, otherwise negative. PAST MEDICAL HISTORY Significant for hypertension as well as small bowel obstructions in the past, Florian's palsy, anxiety, panic disorder and asthma. PAST SURGICAL HISTORY She has had a hysterectomy, cholecystectomy, tubal and hernia repair. SOCIAL HISTORY She is a nonsmoker, nondrinker. PHYSICAL EXAMINATION She is awake, alert, active, nontoxic in appearance. Appears very anxious, well hydrated and well nourished. HEENT is benign. Trachea is midline. Heart is regular rate and rhythm. Lungs are clear. Abdomen was soft, tender to palpation across the upper abdomen. No rebound or guarding. No peritoneal signs, nondistended. Extremities are without edema or cyanosis and skin is without rashes. EMERGENCY DEPARTMENT COURSE The patient's EKG shows a sinus rhythm with a left axis deviation, left ventricular hypertrophy and some nonspecific ST-T wave changes. CT of abdomen and pelvis shows a small bowel obstruction, no definite etiology is seen likely on the basis of adhesions; however, transition point abuts the anterior abdominal wall. Theoretically, a very small incarcerated anterior abdominal hernia is possible but there is no bowel wall thickening. She did have a little bump in her troponin. White count was 8.8, hemoglobin 14.5. Chemistries were unremarkable other than the troponin of 0.013. Her urine was negative for infection. IMPRESSION At this time, impression is acute small bowel obstruction. PLAN The patient will be admitted. I have got a call out for Dr. Boykin. We will discuss the case with Dr. Boykin. She will be coming in either under Dr. Boykin or the hospitalist service for further treatment for her small bowel obstruction and evaluation of that troponin. ADMIT <Electronically signed by VONNIE AMADOR D.O.> 06/14/18 2115 VONNIE AMADOR D.O. cc: JORDAN EPPS M.D.; VONNIE AMADOR D.O. << Signature on File>> Reported By: VONNIE AMADOR D.O. Signed By: VONNIE AMADOR D.O. Tests performed at: [facility] [address] [place], [place] [address] EMERGENCY DEPARTMENT Observed: 06/14/2018 Status: F Source: [place] REPORT 12:50 PM [facility] [place] [place] [address] HEALTH INFORMATION MANAGEMENT EMERGENCY DEPARTMENT REPORT Patient: RASHAWN ALMEIDA CURRENT,VONNIE Chen D.O. [id number] [age] F Status: ADM IN [facility] 3904-B Date of Service: 06/13/18 CHIEF COMPLAINT Abdominal pain. HISTORY OF PRESENT ILLNESS This is a 63-year-old female with epigastric abdominal pain, says it started yesterday, got worse today. She has not been vomiting but she is nauseous, said she does not remember when she had her last bowel movement. She has a history of bowel obstruction. She has had these before. They resolved spontaneously. She has had some abdominal hernia repairs and has had mesh put in place. The patient states that she has had no fevers or chills with this. She does not have chest pain, just epigastric pain. REVIEW OF SYSTEMS Other than the pain and the nausea, no vomiting or diarrhea, otherwise negative. PAST MEDICAL HISTORY Significant for hypertension as well as small bowel obstructions in the past, Florian's palsy, anxiety, panic disorder and asthma. PAST SURGICAL HISTORY She has had a hysterectomy, cholecystectomy, tubal and hernia repair. SOCIAL HISTORY She is a nonsmoker, nondrinker. PHYSICAL EXAMINATION She is awake, alert, active, nontoxic in appearance. Appears very anxious, well hydrated and well nourished. HEENT is benign. Trachea is midline. Heart is regular rate and rhythm. Lungs are clear. Abdomen was soft, tender to palpation across the upper abdomen. No rebound or guarding. No peritoneal signs, nondistended. Extremities are without edema or cyanosis and skin is without rashes. EMERGENCY DEPARTMENT COURSE The patient's EKG shows a sinus rhythm with a left axis deviation, left ventricular hypertrophy and some nonspecific ST-T wave changes. CT of abdomen and pelvis shows a small bowel obstruction, no definite etiology is seen likely on the basis of adhesions; however, transition point abuts the anterior abdominal wall. Theoretically, a very small incarcerated anterior abdominal hernia is possible but there is no bowel wall thickening. She did have a little bump in her troponin. White count was 8.8, hemoglobin 14.5. Chemistries were unremarkable other than the troponin of 0.013. Her urine was negative for infection. IMPRESSION At this time, impression is acute small bowel obstruction. PLAN The patient will be admitted. I have got a call out for Dr. Boykin. We will discuss the case with Dr. Boykin. She will be coming in either under Dr. Boykin or the hospitalist service for further treatment for her small bowel obstruction and evaluation of that troponin. ADMIT <Electronically signed by VONNIE AMADOR D.O.> 06/14/18 2115 VONNIE AMADOR D.O. cc: JORDAN EPPS M.D.; VONNIE AMADOR D.O. << Signature on File>> Reported By: VONNIE AMADOR D.O. Signed By: VONNIE AMADOR D.O. Tests performed at: [address] [address] HISTORY PHYSICAL Observed: 06/14/2018 Status: COMPLETED Source: [place] 8:25 AM [facility] REPOSITORY [facility] ID: [id number] Author: Oh Boykin Service: (none) Author Type: Physician Type: HANDP Filed: 06/29/2018 9:49 PM Note Text: [place] [address] HEALTH INFORMATION MANAGEMENT HISTORY AND PHYSICAL Patient: RASHAWN ALMEIDA ROBERT M M.D. [id number] F Status: ADM IN [facility] 3904-B DATE OF ADMISSION 06/13/2018. HISTORY OF PRESENT ILLNESS This is a 63-year white female multiple abdominal surgeries in the past. She was just in 3 months ago with a partial small bowel obstruction that resolved without surgery. She refused NG tube and is doing the same now. Comes in with crampy abdominal pain, not throwing up as much, decreased flatus, bowel movements for a day or 2. CT suggests small bowel obstruction like she had before. No obvious hernias, probably adhesions. PAST MEDICAL HISTORY She has had a past medical history of obesity, anxiety, hypertension and previous small bowel obstructions. PAST SURGICAL HISTORY Past surgical history of a hysterectomy, cholecystectomy, tubal, colonoscopy and upper scope within the last 5 years. Again she tells me everything was fine. She has also had a hernia repair. SOCIAL HISTORY Negative for alcohol or tobacco abuse. FAMILY HISTORY Noncontributory. ALLERGIES No known drug allergies. MEDICATIONS Medications at home include Xanax 0.5 twice a day, Norvasc 5 mg a day, Lexapro 5 mg a day, Synthroid 88 mcg a day, Neurontin 300 three times a day, Percocet, for I believe chronic pain although she does not admit to it, 3 times a day. REVIEW OF SYSTEMS Constitutional, cardiac, respiratory, breast, COMMUN[employer] DEVELOPMENT OFFICER, urologic, vascular, lymphatic, headache and neck, neuro, musculoskeletal, psych all stable. GI: Positive just for the crampy pain. Decreased bowel function for a day or so. She has a CT with the above findings. White count is 8, hemoglobin 14, platelets 206,000. Urinalysis is negative. Sodium 143, potassium 4.2, BUN and creatinine 9 and 0.91, glucose 95. Liver panel normal for the most part, lipase normal. PHYSICAL EXAMINATION On exam, no acute distress, alert and oriented x3. Temperature 98, pulse 70, respirations 8 to 15, blood pressure 190/100, sats 95. Alert and oriented x3. Neurologically intact motor, sensory, gait, posture. Lungs are clear. Heart: Regular. Neck: Nontender. Back: Nontender. Upper and lower extremities: No pain, swelling or masses. Abdomen is obesely distended. No obvious hernias. Slight tenderness, maybe a slight distension, really nothing significant. Groin: No obvious hernias or adenopathy. Rectal: Refused per patient. ASSESSMENT AND PLAN This is a 63-year-old white female again partial small bowel obstruction. No obvious hernias. I think it is scar tissue. Will admit her, bowel rest, IV fluids, NG tube. Again she is refusing the NG tube with daily films. I told her if it gets worse she may need surgery, otherwise, a lot of times it gets better as it did in the past. Again, breast, COMMUNITY C[employer] DEVELOPMENT OFFICER, GI recommendations reviewed. The patient compliant, otherwise, asymptomatic. <Electronically signed by OH BOYKIN M.D.> 06/15/18 0838 OH BOYKIN M.D. cc: OH BOYKIN M.D. << Signature on File>> Reported By: OH BOYKIN M.D. Signed By: OH BOYKIN M.D. Tests performed at: [address] [address] HISTORY AND PHYSICAL Observed: 06/14/2018 Status: F Source: [place] 8:25 AM [facility] [place] [place] [address] HEALTH INFORMATION MANAGEMENT HISTORY AND PHYSICAL Patient: RASHAWN ALMEIDA OH BOYKIN M.D. [id number] F Status: ADM IN [facility] 3904-B DATE OF ADMISSION 06/13/2018. HISTORY OF PRESENT ILLNESS This is a 63-year white female multiple abdominal surgeries in the past. She was just in 3 months ago with a partial small bowel obstruction that resolved without surgery. She refused NG tube and is doing the same now. Comes in with crampy abdominal pain, not throwing up as much, decreased flatus, bowel movements for a day or 2. CT suggests small bowel obstruction like she had before. No obvious hernias, probably adhesions. PAST MEDICAL HISTORY She has had a past medical history of obesity, anxiety, hypertension and previous small bowel obstructions. PAST SURGICAL HISTORY Past surgical history of a hysterectomy, cholecystectomy, tubal, colonoscopy and upper scope within the last 5 years. Again she tells me everything was fine. She has also had a hernia repair. SOCIAL HISTORY Negative for alcohol or tobacco abuse. FAMILY HISTORY Noncontributory. ALLERGIES No known drug allergies. MEDICATIONS Medications at home include Xanax 0.5 twice a day, Norvasc 5 mg a day, Lexapro 5 mg a day, Synthroid 88 mcg a day, Neurontin 300 three times a day, Percocet, for I believe chronic pain although she does not admit to it, 3 times a day. REVIEW OF SYSTEMS Constitutional, cardiac, respiratory, breast, COMMUN[employer] DEVELOPMENT OFFICER, urologic, vascular, lymphatic, headache and neck, neuro, musculoskeletal, psych all stable. GI: Positive just for the crampy pain. Decreased bowel function for a day or so. She has a CT with the above findings. White count is 8, hemoglobin 14, platelets 206,000. Urinalysis is negative. Sodium 143, potassium 4.2, BUN and creatinine 9 and 0.91, glucose 95. Liver panel normal for the most part, lipase normal. PHYSICAL EXAMINATION On exam, no acute distress, alert and oriented x3. Temperature 98, pulse 70, respirations 8 to 15, blood pressure 190/100, sats 95. Alert and oriented x3. Neurologically intact motor, sensory, gait, posture. Lungs are clear. Heart: Regular. Neck: Nontender. Back: Nontender. Upper and lower extremities: No pain, swelling or masses. Abdomen is obesely distended. No obvious hernias. Slight tenderness, maybe a slight distension, really nothing significant. Groin: No obvious hernias or adenopathy. Rectal: Refused per patient. ASSESSMENT AND PLAN This is a 63-year-old white female again partial small bowel obstruction. No obvious hernias. I think it is scar tissue. Will admit her, bowel rest, IV fluids, NG tube. Again she is refusing the NG tube with daily films. I told her if it gets worse she may need surgery, otherwise, a lot of times it gets better as it did in the past. Again, breast, COMM[employer] DEVELOPMENT OFFICER, GI recommendations reviewed. The patient compliant, otherwise, asymptomatic. <Electronically signed by OH BOYKIN M.D.> 06/15/18 0838 OH BOYKIN M.D. cc: OH BOYKIN M.D. << Signature on File>> Reported By: OH BOYKIN M.D. Signed By: OH BOYKIN M.D. Tests performed at: [address] [address] ED PROV NOTE Observed: 06/14/2018 Status: COMPLETED Source: [place] 6:23 AM [facility] REPOSITORY [facility] ID: [id number] Author: Vonnie Amador Service: (none) Author Type: Physician Type: ED Provider Notes Filed: 06/29/2018 9:48 PM Note Text: [place] [address] [facility] INFORMATION MANAGEMENT EMERGENCY DEPARTMENT REPORT Patient: RASHAWN ALMEIDA VONNIE AMADOR D.O. [id number] [age] F Status: ADM IN [facility] 3904-B Date of Service: 06/13/18 ADDENDUM I dictated on the chart. I did talk to Dr. Boykin. The patient is going to be admitted to his service to surgical. IMPRESSION Small-bowel obstruction. <Electronically signed by VONNIE AMADOR D.O.> 06/14/182114 VONNIE AMADOR D.O. cc: JORDAN EPPS M.D.; VONNIE AMADRO D.O. << Signature on File>> Reported By: VONNIE AMADOR D.O. Signed By: VONNIE AMADOR D.O. Tests performed at: [place] [address] EMERGENCY DEPARTMENT Observed: 06/14/2018 Status: F Source: [place] RE[place] 6:23 AM [facility] [place] [place] [address] HEALTH INFORMATION MANAGEMENT EMERGENCY DEPARTMENT REPORT Patient: RASHAWN ALMEIDA VONNIE AMADOR D.O. [id number] [age] F Status: ADM IN [facility] 3904-B Date of Service: 06/13/18 ADDENDUM I dictated on the chart. I did talk to Dr. Boykin. The patient is going to be admitted to his service to surgical. IMPRESSION Small-bowel obstruction. <Electronically signed by VONNIE AMADOR D.O.> 06/14/182114 VONNIE AMADOR D.O. cc: JORDAN EPPS M.D.; VONNIE AMADOR D.O. << Signature on File>> Reported By: VONNIE AMADOR D.O. Signed By: VONNIE AMADOR D.O. Tests performed at: [address] [address] CBC Collected: 06/14/2018 Status: F Source: [facility] 4:40 AM HOSPITAL REPOSITORY Order Comment: Comment: DAILY TYPE CODE TESTS RESULT OUT OF RANGE REFERENCE UNITS LAB L200.0100 4.5-10.0 x10(3) Normal WBC 9.1 LAB L200.0200 3.30-5.00 x10(6) Normal RBC 4.38 LAB L200.0210 12.0-16.0 g/dL Normal HGB 13.0 LAB L200.0220 36.0-48.0 % Normal HCT 38.3 LAB L200.0230 80.0-99.0 fl Normal MCV 87.4 LAB L200.0240 28.5-32.9 pg Normal MCH 29.7 LAB L200.0250 33.0-36.0 g/dL Normal MCHC 34.0 LAB L200.0260 12.5-15.7 % Normal RDW 13.6 LAB L200.0270 150-450 X10(3) Normal PLT 187 LAB L200.0290 7.5-9.5 fl Normal MPV 9.0 LAB L200.0300 45.0-73.0 % High NEUT% 74.3 LAB L200.0310 16.0-48.0 % Normal LYMPH% 17.6 LAB L200.0320 4.3-11.2 % Normal MONO% 5.5 LAB L200.0330 0.5-4.9 % Normal EOS% 1.5 LAB L200.0340 0.0-1.0 % High BASO% 1.1 LAB L200.0350 1.40-6.50 x10(3) High NEUT# 6.80 LAB L200.0360 1.00-3.50 x10(3) Normal LYMPH# 1.60 LAB L200.0370 0.30-0.80 x10(3) Normal MONO# 0.50 LAB L200.0380 0.00-0.54 x10(3) Normal EOS# 0.10 LAB L200.0390 0.00-0.10 x10(3) Normal BASO# 0.10 Performed By: #### L200.0010 #### [facility] - LABORATORY [address] [place] [address] RENAL Collected: 06/14/2018 Status: F Source: [facility] 4:40 AM HOSPITAL REPOSITORY Order Comment: Comment: DAILY TYPE CODE TESTS RESULT OUT OF RANGE REFERENCE UNITS LAB L100.0060 82-115 mg/dL GLUCOSE Normal 113 LAB L100.0110 8-23 mg/dL Low BUN 6 LAB L100.0131 0.50-0.90 mg/dL Normal CREATININE 0.78 LAB L100.0140 8.8-10.2 mg/dL Low CALCIUM 8.4 LAB L100.0150 135-145 mmol/L SODIUM Normal 141 LAB L100.0160 3.5-5.0 mmol/L Normal POTASSIUM 3.9 LAB L100.0170 98-107 mmol/L CHLORIDE Normal 105 LAB L100.0180 22-29 mmol/L Low TCO2 21 LAB L100.0185 15-22 mmol/L ANION Normal GAP 18.9 LAB L100.0210 3.5-5.2 g/dL ALBUMIN Normal 3.5 LAB L100.0270 2.5-4.5 mg/dL Normal PHOSPHORUS 4.0 LAB L100.0274 eGFR Normal nonAFR Rohan > 60 ml/Min/1.73m 2 LAB L100.0275 eGFR if Normal AFR ROHAN > 60 ml/min/1.73m 2 Result Comment: eGFR >= 60 Indicates normal kidney function. * eGFR IS AN ESTIMATE * (AFR ROHAN = ) (non-AFR AM = NON-) MDRD calculation used in the eGFR should not be used to dose medications. For further limitations of the eGFR please refer to the Physician Website or the National Kidney Disease Education Program website (www.nkdep.nih.gov). Performed By: #### L100.0020 #### [facility] - LABORATORY [address] [place] [address] ABDOMEN (KUB)1 VIEW Observed: 06/14/2018 Status: F Source: [place] 4:00 AM [facility] [place] [place] REPOSITORY [address] [address] Name: RASHAWN ALMEIDA Phys: OH BOYKIN M.D. : 53 Age: 63 Sex: F Acct: [id number] Loc: [facility] Exam Date: 06/14/18 Status: ADM IN Radiology No.: [id number] Unit Number: [id number] Exam # Type/Exam [id number] RAD / ABDOMEN (KUB)1 VIEW PROCEDURE: Abdominal radiograph HISTORY: Small bowel obstruction. COMPARISON: 03/24/2018 FINDINGS: No evidence of a bowel obstruction. Small bowel dilatation has nearly completely resolved. There is contrast throughout the colon. No organomegaly or visible free air. IMPRESSION: Near-complete resolution of the small bowel dilatation with contrast throughout the colon. Professional interpretation provided by [facility], [place] on RAC-PC-[id number]. Thank you for this referral. <<Signature on File>> Reported By: ELIZABETH HERRERA M.D. Signed In LionseekaPro By: ELIZABETH HERRERA M.D. << Signature on File>> Reported By: ELIZABETH HERRERA M.D. Signed By: ELIZABETH HERRERA M.D. Tests performed at: [address] [address] CBC Collected: 06/13/2018 Status: F Source: [facility] 5:18 PM HOSPITAL REPOSITORY TYPE CODE TESTS RESULT OUT OF RANGE REFERENCE UNITS LAB L200.0100 4.5-10.0 x10(3) Normal WBC 8.8 LAB L200.0200 3.30-5.00 x10(6) High RBC 5.03 LAB L200.0210 12.0-16.0 g/dL Normal HGB 14.5 LAB L200.0220 36.0-48.0 % Normal HCT 43.9 LAB L200.0230 80.0-99.0 fl Normal MCV 87.2 LAB L200.0240 28.5-32.9 pg Normal MCH 28.9 LAB L200.0250 33.0-36.0 g/dL Normal MCHC 33.2 LAB L200.0260 12.5-15.7 % Normal RDW 13.7 LAB L200.0270 150-450 X10(3) Normal PLT 206 LAB L200.0290 7.5-9.5 fl Normal MPV 8.7 LAB L200.0300 45.0-73.0 % Normal NEUT% 66.0 LAB L200.0310 16.0-48.0 % Normal LYMPH% 25.2 LAB L200.0320 4.3-11.2 % Normal MONO% 6.6 LAB L200.0330 0.5-4.9 % Normal EOS% 1.9 LAB L200.0340 0.0-1.0 % Normal BASO% 0.3 LAB L200.0350 1.40-6.50 x10(3) Normal NEUT# 5.80 LAB L200.0360 1.00-3.50 x10(3) Normal LYMPH# 2.20 LAB L200.0370 0.30-0.80 x10(3) Normal MONO# 0.60 LAB L200.0380 0.00-0.54 x10(3) Normal EOS# 0.20 LAB L200.0390 0.00-0.10 x10(3) Normal BASO# 0.00 Performed By: #### L200.0010 #### [facility] [address] [place] [address] BMP Collected: 06/13/2018 Status: F Source: [facility] 5:18 PM HOSPITAL REPOSITORY TYPE CODE TESTS RESULT OUT OF RANGE REFERENCE UNITS LAB L100.0060 82-115 mg/dL GLUCOSE Normal 95 LAB L100.0110 8-23 mg/dL BUN Normal 9 LAB L100.0131 0.50-0.90 mg/dL High CREATININE 0.91 LAB L100.0140 8.8-10.2 mg/dL CALCIUM Normal 9.5 LAB L100.0150 135-145 mmol/L SODIUM Normal 143 LAB L100.0160 3.5-5.0 mmol/L Normal POTASSIUM 4.2 LAB L100.0170 98-107 mmol/L CHLORIDE Normal 106 LAB L100.0180 22-29 mmol/L TCO2 Normal 24 LAB L100.0185 15-22 mmol/L ANION Normal GAP 17.2 LAB L100.0274 eGFR Normal nonAFR Rohan > 60 ml/Min/1.73m 2 LAB L100.0275 eGFR if Normal AFR ROHAN > 60 ml/min/1.73m 2 Result Comment: eGFR >= 60 Indicates normal kidney function. * eGFR IS AN ESTIMATE * (AFR ROHAN = ) (non-AFR AM = NON-) MDRD calculation used in the eGFR should not be used to dose medications. For further limitations of the eGFR please refer to the Physician Website or the National Kidney Disease Education Program website (www.nkdep.nih.gov). Performed By: #### L100.0010, L100.0030, L100.0350, L301.0120 #### [facility] - [facility]ORATORY [address] [place] [address] HEPATIC PANEL Collected: 06/13/2018 Status: F Source: [place] 5:18 PM [facility] [place] [place] REPOSITORY TYPE CODE TESTS RESULT OUT OF RANGE REFERENCE UNITS LAB L100.0200 6.4-8.3 g/dL TOTAL Normal PROTEIN 7.6 LAB L100.0210 3.5-5.2 g/dL Normal ALBUMIN 4.3 LAB L100.0220 0.2-1.2 mg/dL TOTAL Normal BILIRUBIN 0.4 LAB L100.0230 0.0-0.3 mg/dL Normal DIRECT BILIRUBI <0.2 LAB L100.0240 5-32 U/L AST Normal 20 LAB L100.0250 5-33 U/L ALT Normal 14 LAB L100.0260 35-105 U/L High ALK. PHOS 114 LAB L100.0262 1.5-4.5 g/dL Normal GLOBULIN,CALC 3.3 LAB L100.0264 1.1-2.5 A:G Normal RATIO 1.30 Performed By: #### L100.0010, L100.0030, L100.0350, L301.0120 #### [facility] [address] [place] [address] LIPASE Collected: 06/13/2018 Status: F Source: [facility] 5:18 PM HOSPITAL REPOSITORY TYPE CODE TESTS RESULT OUT OF RANGE REFERENCE UNITS LAB L100.0350 13-60 U/L Normal LIPASE 30 Performed By: #### L100.0010, L100.0030, L100.0350, L301.0120 #### [facility] [address] [place] [address] TROPONIN T Collected: 06/13/2018 Status: F Source: [place] 5:18 [facility] REPOSITORY TYPE CODE TESTS RESULT OUT OF REFERENCE UNITS RANGE LAB L301.0120 0-0.010 ng/mL High TROPONIN T 0.013 Result Comment: NOTE: * Results of 0.011 - 0.099 ng/mL are defined as indeterminate. Results of >/= 0.100 ng/mL are defined as positive. *Indeterminate value is considered an abnormal value and indicative of myocardial damage. This may or may not be secondary to myocardial ischemia or myocardial necrosis(AMI). Serial testing of troponin, clinical correlation, including EKG or imaging studies, and risk stratification is additionally required. Source: WHO criteria cutoff for myocardial necrosis(AMI). Performed By: #### L100.0010, L100.0030, L100.0350, L301.0120 #### [facility] [address] [place] [address] ELECTROCARDIOGRAM Observed: 06/13/2018 Status: F Source: [place] 5:10 PM [facility] [place] [place] [address] HEALTH INFORMATION MANAGEMENT ELECTROCARDIOGRAM REPORT Patient: RASHAWN ALMEIDA Ordering: VONNIE AMADOR D.O. [id number] [age] F Exam Date: 06/13/18 Report #: [id number] Status: REG ER ED SINUS RHYTHM LEFT VENTRICULAR HYPERTROPHY AND ST-T CHANGE NON SPECIFIC T WAVE CHANGES ABNORMAL ECG PREVIOUS TRACIN03/21/18 18.34 Physician Event Mgr: VONNIE AMADOR D.O. Ventricular Rate EK /min R-R Interval: 983 ms P Wave duration: 127 ms QRS duration: 87 ms P-R interval: 185 ms Q-T interval: 414 ms Q-T interval (corrected): 416 ms Q-T Dispersion: ms P wave axis: 20 deg QRS axis: 0 deg T axis: -23 deg Signed in PYRAMIS 06/13/18 1808 VONNIE AMADOR D.O. cc: << Signature on File>> Reported By: VONNIE AMADOR D.O. Signed By: VONNIE AMADOR D.O. Tests performed at: [address] [address] [address] ABD/PEL W CONTRAST Observed: 06/13/2018 Status: F Source: [place] 5:10 PM [facility] [place] [place] REPOSITORY [address] [address] Name: JAYSHREE ALMEIDAN Phys: VONNIE AMADOR D.O. : [birth year] Age: 63 Sex: F Acct: [id number] Loc: ED Exam Date: 06/13/18 Status: REG ER Radiology No.: [id number] Unit Number: [id number] Exam # Type/Exam [id number] CT / CT ABD/PEL W CONTRAST PROCEDURE: Computed tomography of the abdomen and pelvis. HISTORY: Abdominal pain. TECHNIQUE: Axial imaging with intravenous and oral contrast was performed with sagittal and coronal reconstructions. COMPARISON: 03/21/2018. FINDINGS: There is small bowel dilatation in the lower abdomen and mid pelvis up to 3.2 cm similar in appearance to the prior exam with decompressed small bowel distally, there is a sharp transition zone anteriorly at the level of the umbilicus seen on series 6 image 72 and series 3 image 70, there is no definite visible etiology for the obstruction. No pneumatosis or free air. There is some minimal ascites in the pelvis. Large and small bowel loops otherwise are unremarkable except for some diverticulosis in the colon with no diverticulitis. Liver, post cholecystectomy biliary tree, spleen, stomach and duodenum, pancreas, adrenal glands and kidneys are unremarkable. No aortic aneurysm. There is calcified atherosclerotic disease in the aorta. No acute bone findings. IMPRESSION: Small bowel obstruction, no definite etiology is seen in this is likely on the basis of adhesions, however the transition point abuts the anterior abdominal wall, theoretically a very small incarcerated anterior abdominal hernia is possible but there is no bowel wall thickening. This exam was performed according to our departmental dose optimization program, and includes the following measures where applicable: automated exposure control, adjustment of the mAs and/or kVp according to patient size and/or exam, and an iterative reconstruction algorithm. Professional interpretation provided by [facility], [place] on [employer]-PC-[id number]. Thank you for this referral. <<Signature on File>> Reported By: ELIZABETH HERRERA M.D. Signed In NovaPro By: ELIZABETH HERRERA M.D. << Signature on File>> Reported By: ELIZABETH HERRERA M.D. Signed By: ELIZABETH HERRERA M.D. Tests performed at: [address] [address] UA W/C&S Collected: 06/13/2018 Status: F Source: [facility] 5:10 PM HOSPITAL REPOSITORY Order Comment: Urine Specimen Source+ CLEAN CATCH TYPE CODE TESTS RESULT OUT OF RANGE REFERENCE UNITS LAB L200.3010 YELLOW URINE Normal COLOR YELLOW LAB L200.3020 CLEAR URINE Normal APPEARANC CLEAR LAB L200.3030 NEGATIVE MG/DL URINE Normal GLUCOSE NEGATIVE LAB L200.3050 NEGATIVE URINE Normal BILIRUBIN NEGATIVE LAB L200.3060 NEGATIVE MG/DL URINE Normal KETONE NEGATIVE LAB L200.3070 1.001-1.035 URINE Normal SPECIFIC <=1.005 LAB L200.3080 NEGATIVE URINE Normal BLOOD TRACE-INTACT LAB L200.3090 5.0-8.0 URINE Normal PH 6.0 LAB L200.3100 NEGATIVE MG/DL URINE Normal PROTEIN NEGATIVE LAB L200.3110 0.2-1.0 EU/DL URINE Normal UROBILINO 0.2 LAB L200.3120 NEGATIVE URINE Normal NITRITE NEGATIVE LAB L200.3130 NEGATIVE URINE Normal LEUKOCYTE NEGATIVE Performed By: #### L200.3001 #### [facility] [address] [place] [address] THERAPY NT Observed: 06/05/2018 Status: COMPLETED Source: [place] 7:35 PM [facility] REPOSITORY [facility]NO ID: [id number] Author: Provider [facility] Service: (none) Author Type: Physician Type: Therapy (PT/OT/Speech/Resp) Filed: 06/29/2018 9:34 PM Note Text: [address] [address] PHYSICAL THERAPY REPORT Patient: RASHAWN ALMEIDA ARABELLA LOVENDarlenePDarlene [id number] [age] F Status: DIS RCR PT PHYSICAL THERAPY DISCHARGE SUMMARY DATE 05/06/2018 To Alma Delia WatkinsNLashaun, As you know, you referred your patient to the [facility] secondary to cervical and bilateral shoulder pain. The patient was last seen on 05/10/2018. The patient has not contacted the [facility] to continue with her plan of care. We assume the patient is continuing therapy independently. The patient was seen for 4 visits and was discharged on 05/06/2018. Thank you for referral of your patient. If you have any further questions, please feel free to contact me at [facility]. Sincerely, <Electronically signed by JONATHAN AGUILAR DPT> Dictated By: JONATHAN AGUILAR DPT Signed By: JONATHAN AGUILAR DPT 06/06/18 0853 << Signature on File>> Reported By: JONATHAN AGUILAR DPT Signed By: JONATHAN AGUILAR DPT Tests performed at: [place] [address] PHYSICAL THERAPY Observed: 06/05/2018 Status: F Source: [place] [facility] [address] [address] PHYSICAL THERAPY REPORT Patient: TALA ALMEIDALYN ARABELLA LOVEN.PDarlene [id number] [age] F Status: DIS RCR PT PHYSICAL THERAPY DISCHARGE SUMMARY DATE 05/06/2018 To Alma Delia WatkinsNLashaun, As you know, you referred your patient to the [facility] secondary to cervical and bilateral shoulder pain. The patient was last seen on 05/10/2018. The patient has not contacted the [facility] to continue with her plan of care. We assume the patient is continuing therapy independently. The patient was seen for 4 visits and was discharged on 05/06/2018. Thank you for referral of your patient. If you have any further questions, please feel free to contact me at [facility]. Sincerely, <Electronically signed by JONATHAN AGUILAR DPT> Dictated By: JONATHAN AGUILAR DPT Signed By: JONATHAN AGUILAR DPT 06/06/18 0853 << Signature on File>> Reported By: JONATHAN AGUILAR DPT Signed By: JONATHAN AGUILAR DPT Tests performed at: [place] [id number] THERAPY NT Observed: 04/25/2018 Status: COMPLETED Source: [place] 11:19 AM [facility] REPOSITORY [facility]NO ID: [id number] Author: Provider [facility] Service: (none) Author Type: Physician Type: Therapy (PT/OT/Speech/Resp) Filed: 06/29/2018 8:22 PM Note Text: [facility] [address] [address] PHYSICAL THERAPY REPORT Patient: RASHAWN ALMEIDA LYNNE E Alma DeliaNDarlenePDarlene [id number] [age] F Status: REG RCR PT PHYSICAL THERAPY INITIAL EVALUATION DATE OF EVALUATION 04/25/2018 DATE OF ONSET/INJURY: 1986 CHIEF COMPLAINT - FUNCTIONAL LIMITATIONS 1. The patient complains of increased pain in her back, neck, shoulders, and bilateral arms. PHYSICAL THERAPY DIAGNOSIS 1. Decreased active range of motion and strength in bilateral extremities and cervical spine. MEDICAL DIAGNOSIS 1. Cervicalgia with degenerative disk disease, bilateral shoulder pain. HISTORY The patient is a 62-year-old female who reports she has had pain since 1986. She states she has been doing okay, however, recently she has noticed increased pain in her neck, shoulders, and arms. She states her doctor ordered an MRI, however, her insurance denied it. States she has [id number] in bilateral knees. She states she now only has two pain pills a day and she used to take four. She states she has increased pain when she stands too long and she feels stiff and cannot walk. She said she cannot climb steps and has a ramp into her home. She states she uses a front wheeled walker at home when she needs to. She states she is unable to do dishes for a very long time due to having neck and back pain. She states she has pain in her right buttock that goes to her right hip. She also is left handed. States she has been diagnosed with osteoporosis, osteoarthritis, rheumatoid arthritis, degenerative disk disease, spondylosis, and scoliosis. She denies numbness and tingling. PERSONAL FACTORS AND COMORBIDITIES Osteoarthritis, osteoporosis, rheumatoid arthritis, degenerative disk disease, scoliosis, spondylosis, hypertension, asthma/lung disease, neurological problems, migraine headaches, broken bones. EXAMINATION VAS pain scale: 10/10 pain throughout her body. Cervical active range of motion: Flexion 15 degrees; extension 10 degrees; bilateral cervical flexion 8 degrees; bilateral cervical rotation 10 degrees. Active range of motion: Right shoulder flexion 50 degrees; abduction 50 degrees; external rotation 52 degrees; internal rotation to her right hip. Left shoulder flexion 58 degrees; abduction 48 degrees; external rotation 48 degrees; internal rotation to left hip. Manual muscle testing: Bilateral upper extremities: 2/5. Gait analysis: The patient demonstrates short step length, bilateral Trendelenburg, and decreased bilateral knee flexion with swing phase. Clinical presentation: The patient displays an evolving clinical presentation. Clinical decision making: Moderate complexity based on above history, examination, and clinical presentation. PROBLEM LIST - FUNCTIONAL LIMITATIONS 1. Increased pain. 2. Decreased strength. 3. Decreased active range of motion. SHORT-TERM GOALS The patient will be independent with home exercise program within 1 to 2 weeks. LONG-TERM FUNCTIONAL GOALS/PATIENT STATED GOALS 1. The patient will improve manual muscle testing greater than or equal to 4/5 to facilitate ease with functional mobility. 2. The patient will improve bilateral shoulder flexion and abduction to 120 degrees to facilitate ease with donning and doffing a shirt. 3. The patient will report a maximum pain of 3/10 pain with functional mobility. 4. The patient will improve bilateral cervical rotation to greater than or equal to 45 degrees to facilitate ease with driving. 5. The patient will subjectively report an improvement greater than or equal to 75% since coming to therapy. PROGNOSIS/REHABILITATION POTENTIAL Good to achieve therapy goals. TREATMENT PLAN The patient will be seen for therapeutic exercise, home exercise program, patient education, stretching as needed and as indicated. FREQUENCY/DURATION Two to three times per week for 18 visits. We will recommend additional visits as needed. DISCHARGE PLAN The patient will be discharged from active physical therapy upon completion of all therapy goals, reaching a plateau in physical therapy progress, and/or maximizing current physical therapy prescription. Thank you for referral of your patient. If you have any further questions, please feel free to contact me at [facility]. Sincerely, <Electronically signed by JONATHAN AGUILAR DPT> Dictated By: JONATHAN AGUILAR DPT Signed By: JONATHAN AGUILAR DPT 04/25/18 4174 << Signature on File>> Reported By: JONATHAN AGUILAR DPT Signed By: JONATHAN AGUILAR DPT Tests performed at: [place] [address] PHYSICAL THERAPY Observed: 04/25/2018 Status: F Source: [place] REPORT 11:[address] [facility] [place] [address] PHYSICAL THERAPY REPORT Patient: ALMEIDARASHAWNARABELLA GREGORY C.N.P. [id number] [age] F Status: REG RCR PT PHYSICAL THERAPY INITIAL EVALUATION DATE OF EVALUATION 04/25/2018 DATE OF ONSET/INJURY: 1986 CHIEF COMPLAINT - FUNCTIONAL LIMITATIONS 1. The patient complains of increased pain in her back, neck, shoulders, and bilateral arms. PHYSICAL THERAPY DIAGNOSIS 1. Decreased active range of motion and strength in bilateral extremities and cervical spine. MEDICAL DIAGNOSIS 1. Cervicalgia with degenerative disk disease, bilateral shoulder pain. HISTORY The patient is a 62-year-old female who reports she has had pain since 1986. She states she has been doing okay, however, recently she has noticed increased pain in her neck, shoulders, and arms. She states her doctor ordered an MRI, however, her insurance denied it. States she has [id number] in bilateral knees. She states she now only has two pain pills a day and she used to take four. She states she has increased pain when she stands too long and she feels stiff and cannot walk. She said she cannot climb steps and has a ramp into her home. She states she uses a front wheeled walker at home when she needs to. She states she is unable to do dishes for a very long time due to having neck and back pain. She states she has pain in her right buttock that goes to her right hip. She also is left handed. States she has been diagnosed with osteoporosis, osteoarthritis, rheumatoid arthritis, degenerative disk disease, spondylosis, and scoliosis. She denies numbness and tingling. PERSONAL FACTORS AND COMORBIDITIES Osteoarthritis, osteoporosis, rheumatoid arthritis, degenerative disk disease, scoliosis, spondylosis, hypertension, asthma/lung disease, neurological problems, migraine headaches, broken bones. EXAMINATION VAS pain scale: 10/10 pain throughout her body. Cervical active range of motion: Flexion 15 degrees; extension 10 degrees; bilateral cervical flexion 8 degrees; bilateral cervical rotation 10 degrees. Active range of motion: Right shoulder flexion 50 degrees; abduction 50 degrees; external rotation 52 degrees; internal rotation to her right hip. Left shoulder flexion 58 degrees; abduction 48 degrees; external rotation 48 degrees; internal rotation to left hip. Manual muscle testing: Bilateral upper extremities: 2/5. Gait analysis: The patient demonstrates short step length, bilateral Trendelenburg, and decreased bilateral knee flexion with swing phase. Clinical presentation: The patient displays an evolving clinical presentation. Clinical decision making: Moderate complexity based on above history, examination, and clinical presentation. PROBLEM LIST - FUNCTIONAL LIMITATIONS 1. Increased pain. 2. Decreased strength. 3. Decreased active range of motion. SHORT-TERM GOALS The patient will be independent with home exercise program within 1 to 2 weeks. LONG-TERM FUNCTIONAL GOALS/PATIENT STATED GOALS 1. The patient will improve manual muscle testing greater than or equal to 4/5 to facilitate ease with functional mobility. 2. The patient will improve bilateral shoulder flexion and abduction to 120 degrees to facilitate ease with donning and doffing a shirt. 3. The patient will report a maximum pain of 3/10 pain with functional mobility. 4. The patient will improve bilateral cervical rotation to greater than or equal to 45 degrees to facilitate ease with driving. 5. The patient will subjectively report an improvement greater than or equal to 75% since coming to therapy. PROGNOSIS/REHABILITATION POTENTIAL Good to achieve therapy goals. TREATMENT PLAN The patient will be seen for therapeutic exercise, home exercise program, patient education, stretching as needed and as indicated. FREQUENCY/DURATION Two to three times per week for 18 visits. We will recommend additional visits as needed. DISCHARGE PLAN The patient will be discharged from active physical therapy upon completion of all therapy goals, reaching a plateau in physical therapy progress, and/or maximizing current physical therapy prescription. Thank you for referral of your patient. If you have any further questions, please feel free to contact me at [facility]. Sincerely, <Electronically signed by JONATHAN AGUILAR DPT> Dictated By: JONATHAN AGUILAR DPT Signed By: JONATHAN AGUILAR DPT 04/25/18 1625 << Signature on File>> Reported By: JONATHAN AGUILAR DPT Signed By: JONATHAN AGUILAR DPT Tests performed at: [address] [id number] THERAPY NT Observed: 04/12/2018 Status: COMPLETED Source: [place] 1:27 PM [facility] REPOSITORY HNO ID: [id number] Author: Provider [facility] Service: (none) Author Type: Physician Type: Therapy (PT/OT/Speech/Resp) Filed: 06/29/2018 8:00 PM Note Text: [address] [address] OCCUPATIONAL THERAPY Patient: RASHAWN ALMEIDAARABELLA Mary FlanneryNDarlenePDarlene [id number] [age] F Status: DIS RCR OT OCCUPATIONAL THERAPY DISCHARGE SUMMARY DATE: 04/05/2018 MEDICAL DIAGNOSIS: Left hand pain, status post trigger finger release of left ring finger. THERAPY DIAGNOSES: 1. Pain. 2. Scar. 3. Numbness. ONSET: October 2017 SUMMARY: OT initial evaluation was completed on 01/13/2018. The patient completed a total of 12 sessions from 01/13/2018 through 02/27/2018. Treatment focused on scar management. Strengthening exercises were also done. GOAL STATUS: 1. Increase left cost estimator strength to 52 pounds. Goal met. Strength improved from 45 to 57 pounds. 2. Increase left pinch strengths by 2-3 pounds. Goal partially met. Lateral pinch remains the same at 13 pounds. 3-point pinch increased from 8 to 10 pounds. 2-point pinch increased from 5 to 10 pounds. 3. Patient to report a 50% improvement with pain in the left hand. Goal not met. The patient reports a 30% improvement. 4. Patient to report a 50% improvement with numbness in the left ring finger. Goal met. She continues to deny having any numbness in the ring finger. The patient was last seen in OT on February 27. OT does feel that she made good progress. She will be discharged at this time. Thank you for this referral. Dictated By: ODESSA PRITCHETT OTR/Lyel Signed : ODESSA PRITCHETT/Lyle 04/12/18 1328 << Signature on File>> Reported By: ODESSA PRITCHETT/Lyle Signed By: ODESSA PRITCHETT/Lyle Tests performed at: [place] [address] OCCUPATIONAL THERAPY Observed: 04/12/2018 Status: F Source: [place] 1:[address] [facility] [address] [address] OCCUPATIONAL THERAPY Patient: GRAYSONRASHAWNARABELLA GREGORY C.N.P. [id number] [age] F Status: DIS RCR OT OCCUPATIONAL THERAPY DISCHARGE SUMMARY DATE: 04/05/2018 MEDICAL DIAGNOSIS: Left hand pain, status post trigger finger release of left ring finger. THERAPY DIAGNOSES: 1. Pain. 2. Scar. 3. Numbness. ONSET: October 2017 SUMMARY: OT initial evaluation was completed on 01/13/2018. The patient completed a total of 12 sessions from 01/13/2018 through 02/27/2018. Treatment focused on scar management. Strengthening exercises were also done. GOAL STATUS: 1. Increase left cost estimator strength to 52 pounds. Goal met. Strength improved from 45 to 57 pounds. 2. Increase left pinch strengths by 2-3 pounds. Goal partially met. Lateral pinch remains the same at 13 pounds. 3-point pinch increased from 8 to 10 pounds. 2-point pinch increased from 5 to 10 pounds. 3. Patient to report a 50% improvement with pain in the left hand. Goal not met. The patient reports a 30% improvement. 4. Patient to report a 50% improvement with numbness in the left ring finger. Goal met. She continues to deny having any numbness in the ring finger. The patient was last seen in OT on February 27. OT does feel that she made good progress. She will be discharged at this time. Thank you for this referral. Dictated By: NILS RENE/Lyle Signed : ODESSA PRITCHETT 04/12/18 1328 << Signature on File>> Reported By: ODESSA PRITCHETT Signed By: ODESSA PRITCHETT Tests performed at: [address] [address] ED PROV NOTE Observed: 03/24/2018 Status: COMPLETED Source: [place] 3:23 PM [facility] [place] REPOSITORY HNO ID: [id number] Author: Nguyễn Wolff Service: Emergency Medicine Author Type: Physician Type: ED Provider Notes Filed: 06/29/2018 7:29 PM Note Text: [place] [address] HEALTH INFORMATION MANAGEMENT EMERGENCY DEPARTMENT REPORT Patient: GRAYSONRASHAWNNGUYỄN SAMANIEGO D.O. [id number] [age] F Status: DIS IN [facility] 3930-B Date of Service: 03/21/18 HISTORY OF PRESENT ILLNESS The patient is a 62-year-old female who presents for epigastric abdominal pain. The patient states that the pain began in the last 2 to 3 days. The patient states that she has had continuous epigastric abdominal pain for 3 days. States that she has not had a bowel movement and states that she has only passed some gas earlier this afternoon. The patient states the pain does radiate into her chest. Describes it as a burning sensation. The patient states that she has had small bowel obstructions in the past secondary to multiple abdominal surgeries that she has had. The patient states approximately 2 years ago she was last admitted to the hospital for a small bowel obstruction. The patient states that she has had associated nausea, no vomiting, and came to the ED. The patient has no other associated complaints at this time. Came to the ED for the abdominal pain. REVIEW OF SYSTEMS Positive for epigastric abdominal pain, nausea, chest pain. The remainder of the review of systems unremarkable. VITAL SIGNS Blood pressure 158/75, temp 98, pulse 76, respirations 16, SpO2 of 95. SOCIAL HISTORY Noncontributory. PAST SURGICAL HISTORY Hysterectomy, cholecystectomy, BTL, hernia repair, rotator cuff repair. PAST MEDICAL HISTORY Florian's palsy, anxiety, panic disorder, asthma. MEDICATIONS Patient states that she does not take any med. PHYSICAL EXAMINATION Constitutional: Patient is weepy and looks to be uncomfortable. She is nontoxic-appearing. Cardiac: Regular rate and rhythm. Negative for murmurs, rubs, gallops. Positive S1, S2. Pulmonary: Clear to auscultation bilaterally. Negative for wheezes, rales or crackles. Abdomen is soft, tympanic, protuberant. No evidence of rigidity, guarding and/or distension. Negative for peritoneal signs. Reproducible pain to palpation in the epigastric area. Musculoskeletal: Normal radial and DP pulses. Negative for lower extremity edema, ulcerations, skin breakdown. DIAGNOSTIC TESTS EKG was unremarkable, showed sinus rhythm with normal intervals, negative for ST elevation or depression. No specific T-wave abnormalities. Laboratory work, CBC is unremarkable. CMP is normal. Troponin is less than 0.010. Lipase of 18. Patient's urine is evident for a positive urinary tract infection, positive nitrites. The patient did have imaging which does show a low grade mechanical small bowel obstruction at the ileum. This may be adhesive, as no focal mass is evident. No evidence for perf or abscess. ASSESSMENT AND PLAN At this time given the fact the patient does have a small bowel obstruction, we have admitted her to the hospital. We do believe some of this is related to her anxiety and the patient did receive some Ativan as well as Zofran for nausea. The patient has been much more comfortable since then. The patient at this time has since been admitted. She did receive 1 g of Rocephin for the UTI while in the ED. At this time the patient does not appear to have a cardiac issue and at this time has since been admitted to the hospital. DIAGNOSES 1. Small bowel obstruction. 2. Urinary tract infection. ADMIT <Electronically signed by NGUYỄN WOLFF D.O.> 03/28/18 1018 NGUYỄN WOLFF D.O. cc: TONNY EPPS M.D.; NGUYỄN WOLFF D.O. << Signature on File>> Reported By: NGUYỄN WOLFF D.O. Signed By: NGUYỄN WOLFF D.O. Tests performed at: [address] [address] EMERGENCY DEPARTMENT Observed: 03/24/2018 Status: F Source: [place] REPORT 3:23 PM [facility] [place] [place] [address] HEALTH INFORMATION MANAGEMENT EMERGENCY DEPARTMENT REPORT Patient: RASHAWN ALEMIDA NGUYỄN WOLFF D.O. [id number] [age] F Status: DIS IN [facility] 3930-B Date of Service: 03/21/18 HISTORY OF PRESENT ILLNESS The patient is a 62-year-old female who presents for epigastric abdominal pain. The patient states that the pain began in the last 2 to 3 days. The patient states that she has had continuous epigastric abdominal pain for 3 days. States that she has not had a bowel movement and states that she has only passed some gas earlier this afternoon. The patient states the pain does radiate into her chest. Describes it as a burning sensation. The patient states that she has had small bowel obstructions in the past secondary to multiple abdominal surgeries that she has had. The patient states approximately 2 years ago she was last admitted to the hospital for a small bowel obstruction. The patient states that she has had associated nausea, no vomiting, and came to the ED. The patient has no other associated complaints at this time. Came to the ED for the abdominal pain. REVIEW OF SYSTEMS Positive for epigastric abdominal pain, nausea, chest pain. The remainder of the review of systems unremarkable. VITAL SIGNS Blood pressure 158/75, temp 98, pulse 76, respirations 16, SpO2 of 95. SOCIAL HISTORY Noncontributory. PAST SURGICAL HISTORY Hysterectomy, cholecystectomy, BTL, hernia repair, rotator cuff repair. PAST MEDICAL HISTORY Florian's palsy, anxiety, panic disorder, asthma. MEDICATIONS Patient states that she does not take any med. PHYSICAL EXAMINATION Constitutional: Patient is weepy and looks to be uncomfortable. She is nontoxic-appearing. Cardiac: Regular rate and rhythm. Negative for murmurs, rubs, gallops. Positive S1, S2. Pulmonary: Clear to auscultation bilaterally. Negative for wheezes, rales or crackles. Abdomen is soft, tympanic, protuberant. No evidence of rigidity, guarding and/or distension. Negative for peritoneal signs. Reproducible pain to palpation in the epigastric area. Musculoskeletal: Normal radial and DP pulses. Negative for lower extremity edema, ulcerations, skin breakdown. DIAGNOSTIC TESTS EKG was unremarkable, showed sinus rhythm with normal intervals, negative for ST elevation or depression. No specific T-wave abnormalities. Laboratory work, CBC is unremarkable. CMP is normal. Troponin is less than 0.010. Lipase of 18. Patient's urine is evident for a positive urinary tract infection, positive nitrites. The patient did have imaging which does show a low grade mechanical small bowel obstruction at the ileum. This may be adhesive, as no focal mass is evident. No evidence for perf or abscess. ASSESSMENT AND PLAN At this time given the fact the patient does have a small bowel obstruction, we have admitted her to the hospital. We do believe some of this is related to her anxiety and the patient did receive some Ativan as well as Zofran for nausea. The patient has been much more comfortable since then. The patient at this time has since been admitted. She did receive 1 g of Rocephin for the UTI while in the ED. At this time the patient does not appear to have a cardiac issue and at this time has since been admitted to the hospital. DIAGNOSES 1. Small bowel obstruction. 2. Urinary tract infection. ADMIT <Electronically signed by NGUYỄN WOLFF D.O.> 03/28/18 1018 NGUYỄN WOLFF D.O. cc: TONNY EPPS M.D.; NGUYỄN WOLFF D.O. << Signature on File>> Reported By: NGUYỄN WOLFF D.O. Signed By: VOLL,NGUYỄN H D.O. Tests performed at: [facility] [address] [place], [place] [address] PROGRESS Observed: 03/24/2018 Status: COMPLETED Source: [place] 3:14 PM [facility] [place] REPOSITORY HNO ID: [id number] Author: Roland Lopez CNP Service: (none) Author Type: Nurse Practitioner Type: Progress Notes Filed: 06/29/2018 7:29 PM Note Text: [place] [address] PROGRESS NOTES Patient: RASHAWN ALMEIDA DEBRA A F.N.P. [id number] [age] F Status: DIS IN [facility] 3930-B Report Date AND Time: 03/24/18 1514 See Addendum Subjective * Please Note: Reports GERD symptoms, has hiatal hernia per patient, has COPD, Asthma. Uses home oxygen at night 2L and daytime only if she feels short of breath. Denies chest pain or shortness of breath. All systems were reviewed and all are negative except systems noted. Review of Systems All Other Systems Has some nausea after receipt of Kayexalate for elevated potassium. Passing gas and has had 2 stools since last pm. Denies abdominal pain. All other systems were reviewed and are negative. Objective Focused Exam Performed General Appearance Alert, Oriented X3, Cooperative, Mild Distress HEENT Atraumatic, EOMI, Mucous Membr. moist/pink Lungs Clear to Auscultation, Normal Air Movement Neck Supple, No Thryomegaly, No Lymphadopathy Cardiovascular NSR, Normal S1, S2 Abdomen Soft, Mild tenderness to palpation epigastric region, hyperactive bowel sounds all 4 quads. Extremities No Cyanosis, No Edema Skin No Rashes, No Breakdown Neurological Normal Speech, Sensation Intact, Cranial Nerves 2-12 NL, Intact/non-focal, No sensory deficits, Age Appropriate Psych/Mental Status Normal Affect, Normal Mood, Pleasant Lymph No Adenopathy Normal for Patient Stool passing flatus and had 2 BMs Reviewed - Daily Reviewed Information Medications, Nurse Notes, Progress Notes, DVT/Prophylaxis, Labs, Vitals, Other (abdominal Xray, IANDO) Labs/Vitals/Meds/Orders Hematology Range/Units 03/24 0557 Hematology WBC 4.5 - 10.0 x10(3) 6.3 RBC 3.30 - 5.00 x10(6) 4.00 Hgb 12.0 - 16.0 g/dL 11.9 L Hct 36.0 - 48.0 % 35.7 L MCV 80.0 - 99.0 fl 89.1 MCH 28.5 - 32.9 pg 29.7 MCHC 33.0 - 36.0 g/dL 33.3 RDW 12.5 - 15.7 % 13.7 Plt Count 150 - 450 X10(3) 160 MPV 7.5 - 9.5 fl 8.8 Neut % (Auto) 45.0 - 73.0 % 68.7 Lymph % (Auto) 16.0 - 48.0 % 20.2 [place] % (Auto) 4.3 - 11.2 % 6.7 Eos % (Auto) 0.5 - 4.9 % 3.0 Baso % (Auto) 0.0 - 1.0 % 1.4 H Neut # (Auto) 1.40 - 6.50 x10(3) 4.30 Lymph # (Auto) 1.00 - 3.50 x10(3) 1.30 [place] # (Auto) 0.30 - 0.80 x10(3) 0.40 Eos # (Auto) 0.00 - 0.54 x10(3) 0.20 Baso # (Auto) 0.00 - 0.10 x10(3) 0.10 Chemistry Range/Units 03/24 0557 Chemistry Sodium 135 - 145 mmol/L 139 Potassium 3.5 - 5.0 mmol/L 5.2 H Chloride 98 - 107 mmol/L 102 Carbon Dioxide 22 - 29 mmol/L 28 Anion Gap 15 - 22 mmol/L 14.2 L BUN 8 - 23 mg/dL 3 L Creatinine 0.50 - 0.90 mg/dL 0.94 H Est GFR ( Amer) > 60 ml/min/1.73m2 Est GFR (Non-Af Amer) > 60 ml/Min/1.73m2 Glucose 82 - 115 mg/dL 193 H Calcium 8.8 - 10.2 mg/dL 8.6 L Phosphorus 2.5 - 4.5 mg/dL 3.6 Albumin 3.5 - 5.2 g/dL 3.8 Microbiology Date/Time Procedure - Status Source Growth 03/23 1842 Urine Culture - RES URINE 03/23 1106 Blood Culture - RES BLOOD Vital Signs Date Time Temp Pulse Resp B/P B/P Pulse O2 O2 Flow FiO2 Mean Ox Delivery Rate 03/24 0845 Nasal 2 Cannula 03/24 0845 73 156/78 03/24 08 98.5 84 18 105/70 92 03/24 0719 RA 03/24 0719 RA 03/24 0719 RA 03/24 0404 98.7 73 18 156/78 95 03/23 2314 98.7 67 20 125/79 95 03/23 2304 Nasal 2 Cannula 03/23 1931 RA 03/23 1844 99.3 82 20 143/83 93 03/23 1600 Nasal 2 Cannula 03/23 1527 98.8 69 22 102/62 95 Intake AND Output 03/24 0700 03/23 2300 03/23 1500 Intake Total 1010 1423 1447 Output Total 1000 500 800 Balance 10 923 647 Current Medications Sig/Sonia Start time Last Medication Dose Route Stop Time Status Admin Sodium Polystyrene 15 GM ONCE ONE 03/24 0830 DC 03/24 Sulfonate PO 03/24 0831 0846 Sennosides 8.6 MG HS 03/23 2100 DCD 03/23 PO 2148 Oxycodone/ 1 TAB TIDPRN PRN 03/23 1045 DCD 03/24 Acetaminophen PO 0503 Levothyroxine Sodium 0.088 MG QDAY@30 03/23 0800 DCD 03/24 PO 0623 Ceftriaxone Sodium 1 GM Q24H 03/22 2100 DCD 03/23 Dextrose 50 ML IV 2149 Acetaminophen 650 MG Q4-6HPRN PRN 03/22 1845 DCD 03/23 PO 0750 Gabapentin 300 MG TID 03/22 1500 DCD 03/24 PO 0845 Albuterol/Ipratropium 3 ML Q4HPRN PRN 03/22 1145 DCD 03/23 IH 1000 Hydralazine HCl 10 MG Q2-4HPRN PRN 03/22 1130 DCD IV Alprazolam 0.5 MG BID 03/22 09 DCD 03/24 PO 0845 Amlodipine Besylate 5 MG QDAY 03/22 0900 DCD 03/24 PO 0845 Escitalopram Oxalate 5 MG QDAY 03/22 0900 DCD 03/24 PO 0845 Pantoprazole Sodium 40 MG QDAY 03/22 0900 DCD 03/24 Sodium Chloride 10 ML IV 0846 Ondansetron HCl 4 MG Q4HPRN PRN 03/21 2215 DCD 03/24 IV 0844 Potassium Cl/ 1,000 ML .Q6H40M 03/21 2215 DCD 03/24 Dextrose/Lact IV 0039 Ringer's Orders Procedure Date/time Status REGULAR DIET 03/24 B Active zDischarge Instructions to Nsg 03/24 07 Active Discharge To Home 03/24 703 Active RENAL PANEL 03/24 0530 Complete COMPLETE BLOOD COUNT 03/24 0400 Complete PT EVALUATION: MOD COMPLEXITY 03/23 UNK Complete THER PROC GAIT TRAIN EA 15 MIN 03/23 UNK Complete Orthostatic Blood Pressure Supine: Apical: Sitting: Apical: Standing: Apical: PT Daily Note Primary Diagnosis: ALTERED BOWEL ELIMINATION Precautions: SMALL BOWEL OBSTRUCTION, Supine to Sit: Min Assist X 1 Sit to Stand: Min Assist X 1 Ambulated with: Rolling Walker Number of Feet Ambulated: 100 Ambulation Assistance: Min Assist X 1 Number of Liters of 02 Used: 2 Comments: NRSG REQUEST NO RX OF PT PT Co-signature: Jonah Catherine MPT Problems Problems Current Problems 1. Partial small bowel obstruction Assessment/Plan Abdominal Xray done this am shows resolution of PSBO Passing flatus and stool Order for discharge home from Dr. Boykin, surgeon 2. Hyperkalemia Assessment/Plan Kayexalate 15 GM PO once for Potassium 5.3 3. UTI (lower urinary tract infection) Assessment/Plan Urine culture shows no significant growth <24 hrs Bactrim prescription given per Dr. Boykin 4. Asthma Assessment/Plan Lungs CTA today 5. Hypothyroidism Assessment/Plan Continue current levothyroxine 6. Hypertension Assessment/Plan Continue current antihypertensive 7. Anxiety Assessment/Plan Continue current medication Plan Plans Activity Continue Current Diet Continue Current Nursing Discharge Today Medications/IV Plans Continue Antibiotics, Continue Current Meds Condition Improving/Stable Disposition Surgical Time Spent 30 minutes Quality DVT Prophylaxis addressed <Electronically signed by ROLAND LOPEZ, F.N.P.> 03/24/18 1523 ROALND LOPEZ.N.P. ADDENDUM ADDENDUM: ZAID JACKSON M.D. on 03/24/18 at 1559 d/w n/p <Electronically signed by ZAID JACKSON M.D.> 03/24/18 1600 ZAID JACKSON M.D. << Signature on File>> Reported By: ROLAND LOPEZ Signed By: ZAID JACKSON M.D. Tests performed at: [address] [address] CNDS Observed: 03/24/2018 Status: COMPLETED Source: [place] 2:00 PM [facility] [place] REPOSITORY HNO ID: [id number] Author: Oh Boykin Service: (none) Author Type: Physician Type: Discharge Summaries Filed: 06/29/2018 7:29 PM Note Text: [place] [address] HEALTH INFORMATION MANAGEMENT CLINICAL RESUME Patient: RASHAWN ALMEIDA ROBERT M M.D. [id number] [age] F Status: DIS IN [facility] 3930-B Date of Admission: 03/21/18 Date of Discharge: 03/24/18 REASON FOR ADMISSION A 62-year-old white female with some crampy abdominal pain, nausea, admitted with a partial small bowel obstruction and also found to have a UTI upon admission. She did well with bowel rest, IV fluids. By 03/24/2018 tolerating diet, had good bowel function. Sent home on regular diet, antibiotics for UTI and follow up in the office in a few weeks. <Electronically signed by OH BOYKIN M.D.> 03/28/18 1511 OH BOYKIN M.D. cc: OH BOYKIN M.D. << Signature on File>> Reported By: OH BOYKIN M.D. Signed By: OH BOYKIN M.D. Tests performed at: [place] [address] CLINICAL RESUME Observed: 03/24/2018 Status: F Source: [place] 2:00 PM [facility] [place] [address] HEALTH INFORMATION MANAGEMENT CLINICAL RESUME Patient: GRAYSONOH LENTZ M.D. [id number] [age] F Status: DIS IN [facility] 3930-B Date of Admission: 03/21/18 Date of Discharge: 03/24/18 REASON FOR ADMISSION A 62-year-old white female with some crampy abdominal pain, nausea, admitted with a partial small bowel obstruction and also found to have a UTI upon admission. She did well with bowel rest, IV fluids. By 03/24/2018 tolerating diet, had good bowel function. Sent home on regular diet, antibiotics for UTI and follow up in the office in a few weeks. <Electronically signed by OH BOYKIN M.D.> 03/28/18 1511 OH BOYKIN M.D. cc: OH BOYKIN M.D. << Signature on File>> Reported By: OH BOYKIN M.D. Signed By: OH BOYKIN M.D. Tests performed at: [address] [address] CBC Collected: 03/24/2018 Status: F Source: [facility] 5:57 AM HOSPITAL REPOSITORY TYPE CODE TESTS RESULT OUT OF RANGE REFERENCE UNITS LAB L200.0100 4.5-10.0 x10(3) Normal WBC 6.3 LAB L200.0200 3.30-5.00 x10(6) Normal RBC 4.00 LAB L200.0210 12.0-16.0 g/dL Low HGB 11.9 LAB L200.0220 36.0-48.0 % Low HCT 35.7 LAB L200.0230 80.0-99.0 fl Normal MCV 89.1 LAB L200.0240 28.5-32.9 pg Normal MCH 29.7 LAB L200.0250 33.0-36.0 g/dL Normal MCHC 33.3 LAB L200.0260 12.5-15.7 % Normal RDW 13.7 LAB L200.0270 150-450 X10(3) Normal PLT 160 LAB L200.0290 7.5-9.5 fl Normal MPV 8.8 LAB L200.0300 45.0-73.0 % Normal NEUT% 68.7 LAB L200.0310 16.0-48.0 % Normal LYMPH% 20.2 LAB L200.0320 4.3-11.2 % Normal MONO% 6.7 LAB L200.0330 0.5-4.9 % Normal EOS% 3.0 LAB L200.0340 0.0-1.0 % High BASO% 1.4 LAB L200.0350 1.40-6.50 x10(3) Normal NEUT# 4.30 LAB L200.0360 1.00-3.50 x10(3) Normal LYMPH# 1.30 LAB L200.0370 0.30-0.80 x10(3) Normal MONO# 0.40 LAB L200.0380 0.00-0.54 x10(3) Normal EOS# 0.20 LAB L200.0390 0.00-0.10 x10(3) Normal BASO# 0.10 Performed By: #### L200.0010 #### [facility] [address] [place] [address] RENAL Collected: 03/24/2018 Status: F Source: [facility] 5:57 AM HOSPITAL REPOSITORY TYPE CODE TESTS RESULT OUT OF RANGE REFERENCE UNITS LAB L100.0060 82-115 mg/dL High GLUCOSE 193 LAB L100.0110 8-23 mg/dL Low BUN 3 LAB L100.0131 0.50-0.90 mg/dL High CREATININE 0.94 LAB L100.0140 8.8-10.2 mg/dL Low CALCIUM 8.6 LAB L100.0150 135-145 mmol/L SODIUM Normal 139 LAB L100.0160 3.5-5.0 mmol/L High POTASSIUM 5.2 LAB L100.0170 98-107 mmol/L CHLORIDE Normal 102 LAB L100.0180 22-29 mmol/L TCO2 Normal 28 LAB L100.0185 15-22 mmol/L Low ANION GAP 14.2 LAB L100.0210 3.5-5.2 g/dL ALBUMIN Normal 3.8 LAB L100.0270 2.5-4.5 mg/dL Normal PHOSPHORUS 3.6 LAB L100.0274 eGFR Normal nonAFR Rohan > 60 ml/Min/1.73m 2 LAB L100.0275 eGFR if Normal AFR ROHAN > 60 ml/min/1.73m 2 Result Comment: eGFR >= 60 Indicates normal kidney function. * eGFR IS AN ESTIMATE * (AFR ROHAN = ) (non-AFR AM = NON-) MDRD calculation used in the eGFR should not be used to dose medications. For further limitations of the eGFR please refer to the Physician Website or the National Kidney Disease Education Program website (www.nkdep.nih.gov). Performed By: #### L100.0020 #### [facility] [address] [place] [address] ABDOMEN (KUB)1 VIEW Observed: 03/24/2018 Status: F Source: [place] 4:00 AM [facility] [place] [place] REPOSITORY [address] [address] Name: TALA ALMEIDALYN Phys: OH BOYKIN M.D. : 53 Age: 62 Sex: F Acct: [id number] Loc: 3[facility]ST Exam Date: 03/24/18 Status: ADM IN Radiology No.: [id number] Unit Number: [id number] Exam # Type/Exam [id number] RAD / ABDOMEN (KUB)1 VIEW Clinical history: Followup small bowel obstruction. Comparison: Abdomen x-ray on 03/23/2018. Portable supine AP x-ray of the abdomen was obtained. Gas is scattered through the small and large intestine with no dilated loops of intestine. No abnormal gas collection is detected. Impression: No sign of intestinal obstruction. Professional interpretation provided by [facility], [place] on RAC-PC-[id number]. Thank you for this referral. <<Signature on File>> Reported By: MIR WALSH M.D. Signed In [employer] By: MIR WALSH M.D. << Signature on File>> Reported By: MIR WALSH M.D. Signed By: MIR WALSH M.D. Tests performed at: [address] [address] Observed: 03/23/2018 Status: F Source: [facility] 6:42 PM HOSPITAL REPOSITORY ORGANISM 1: ENTEROCOCCUS FAECALIS COLONY COUNT 10,000 - 25,000 ENTEROCOCCUS FAECALIS: M.I.C. REACTION AMPICILLIN <=2 S CIPROFLOXACIN <=1 S NITROFURANTOIN <=32 S LEVOFLOXACIN <=1 S PENICILLIN 2 S TETRACYCLINE >8 R VANCOMYCIN 2 S LINEZOLID 2 S DAPTOMYCIN 2 S S = Susceptible I = Intermediate R = Resistant R*=RESISTANT (ORGANISM HAS INTRINSIC OR INDUCED RESISTANCE) N/R= NOT REPORTED JENELLE= BETA-LACTAMASE POSITIVE EBL?= EXTENDED SPECTRUM BETA-LACTAMASE Performed By: #### M120.0100 #### [facility] [address] [place] [address] PROGRESS Observed: 03/23/2018 Status: COMPLETED Source: [place] 11:12 AM [facility] REPOSITORY HNO ID: [id number] Author: Roland Lopez CNP Service: (none) Author Type: Nurse Practitioner Type: Progress Notes Filed: 06/29/2018 7:27 PM Note Text: [place] [address] PROGRESS NOTES Patient: RASHAWN ALMEIDA ROLAND LOPEZ F.N.P. [id number] [age] F Status: DIS IN [facility] 3930-B Report Date AND Time: 03/23/18 111 ROLAND LOPEZ F.N.PDarlene 03/23/18 1112: Subjective * Please Note: Reports GERD symptoms, has hiatal hernia per patient, has COPD, Asthma. Uses home oxygen at night 2L and daytime only if she feels short of breath. Denies chest pain or shortness of breath. All systems were reviewed and all are negative except systems noted. Review of Systems All Other Systems Feels wheezy today, denies shortness of breath. Denies chest pain. Passing lots of flatus, no stool yet. All other systems were reviewed and are negative. Objective Focused Exam Performed General Appearance Alert, Oriented X3, Cooperative, No Acute Distress HEENT Atraumatic, EOMI, Mucous Membr. moist/pink Lungs Wheeze (Faint expiratory throughout) Neck Supple, No Thryomegaly, No Lymphadopathy Cardiovascular NSR, Normal S1, S2 Abdomen Soft, Mild tenderness to palpation epigastric region, hyperactive bowel sounds all 4 quads. Extremities No Cyanosis, No Edema Skin No Rashes, No Breakdown Neurological Normal Speech, Sensation Intact, Cranial Nerves 2-12 NL, Intact/non-focal, No sensory deficits, Age Appropriate Psych/Mental Status Normal Affect, Normal Mood, Pleasant Lymph No Adenopathy Normal for Patient Stool passing flatus Reviewed - Daily Reviewed Information Medications, Nurse Notes, Progress Notes, DVT/Prophylaxis, Labs, Vitals, Other (IANDO) Labs/Vitals/Meds/Orders Hematology Range/Units 03/23 0442 Hematology WBC 4.5 - 10.0 x10(3) 4.8 RBC 3.30 - 5.00 x10(6) 3.88 Hgb 12.0 - 16.0 g/dL 11.7 L Hct 36.0 - 48.0 % 34.1 L MCV 80.0 - 99.0 fl 87.9 MCH 28.5 - 32.9 pg 30.2 MCHC 33.0 - 36.0 g/dL 34.3 RDW 12.5 - 15.7 % 13.2 Plt Count 150 - 450 X10(3) 162 MPV 7.5 - 9.5 fl 8.5 Neut % (Auto) 45.0 - 73.0 % 54.2 Lymph % (Auto) 16.0 - 48.0 % 32.1 Mer[place] % (Auto) 4.3 - 11.2 % 7.4 Eos % (Auto) 0.5 - 4.9 % 4.3 Baso % (Auto) 0.0 - 1.0 % 2.0 H Neut # (Auto) 1.40 - 6.50 x10(3) 2.60 Lymph # (Auto) 1.00 - 3.50 x10(3) 1.60 [place] # (Auto) 0.30 - 0.80 x10(3) 0.40 Eos # (Auto) 0.00 - 0.54 x10(3) 0.20 Baso # (Auto) 0.00 - 0.10 x10(3) 0.10 Chemistry Range/Units 03/23 0442 Chemistry Sodium 135 - 145 mmol/L 142 Potassium 3.5 - 5.0 mmol/L 4.5 Chloride 98 - 107 mmol/L 106 Carbon Dioxide 22 - 29 mmol/L 26 Anion Gap 15 - 22 mmol/L 14.5 L BUN 8 - 23 mg/dL 4 L Creatinine 0.50 - 0.90 mg/dL 0.92 H Est GFR ( Amer) > 60 ml/min/1.73m2 Est GFR (Non-Af Amer) > 60 ml/Min/1.73m2 Glucose 82 - 115 mg/dL 100 Calcium 8.8 - 10.2 mg/dL 8.6 L Phosphorus 2.5 - 4.5 mg/dL 3.7 Albumin 3.5 - 5.2 g/dL 3.4 L Microbiology Date/Time Procedure - Status Source Growth 03/23 1106 Blood Culture - RECD BLOOD Vital Signs Date Time Temp Pulse Resp B/P B/P Pulse O2 O2 Flow FiO2 Mean Ox Delivery Rate 03/23 1102 98.4 80 26 131/82 86 03/23 1007 2L 03/23 1007 2L 03/23 1006 2L 03/23 0930 93 Nasal 2 Cannula 03/23 0842 100.7 77 26 137/83 89 03/23 0758 Nasal 2 Cannula 03/23 0755 71 113/64 03/23 0337 98.5 71 20 113/64 96 03/23 0011 93 Nasal 2 Cannula 03/23 0004 Nasal 2 Cannula 03/23 0002 98.6 73 18 119/73 91 03/22 2039 96 Nasal 2 Cannula 03/22 1943 98.3 74 20 169/87 90 03/22 1625 97.7 62 22 137/83 90 03/22 1529 97.7 62 22 137/83 90 03/22 1407 97.7 Intake AND Output 03/23 0703/22 2300 03/22 1500 Intake Total 833 817 8886 Output Total 400 1600 1400 Balance 517 -698 2 Current Medications Sig/Sonia Start time Last Medication Dose Route Stop Time Status Admin Sennosides 8.6 MG HS 03/23 2100 AC PO Famotidine 20 MG QDAY 03/23 1045 AC 03/23 PO 1104 Oxycodone/ 1 TAB TIDPRN PRN 03/23 1045 AC Acetaminophen PO Levothyroxine Sodium 0.088 MG QDAY@0630 03/23 0800 AC 03/23 PO 0750 Ceftriaxone Sodium 1 GM Q24H 03/22 2100 AC 03/22 Dextrose 50 ML IV 2009 Acetaminophen 650 MG Q4-6HPRN PRN 03/22 1845 AC 03/23 PO 0750 Gabapentin 300 MG TID 03/22 1500 AC 03/23 PO 0754 Albuterol/Ipratropium 3 ML Q4HPRN PRN 03/22 1145 AC 03/23 IH 1000 Hydralazine HCl 10 MG Q2-4HPRN PRN 03/22 1130 AC IV Alprazolam 0.5 MG BID 03/22 0900 AC 03/23 PO 0754 Amlodipine Besylate 5 MG QDAY 03/22 0900 AC 03/23 PO 0755 Escitalopram Oxalate 5 MG QDAY 03/22 0900 AC 03/23 PO 0756 Pantoprazole Sodium 40 MG QDAY 03/22 0900 AC 03/23 Sodium Chloride 10 ML IV 0755 Morphine Sulfate See Dose Q4HPRN PRN 03/21 2215 DC 03/23 Insts (1) IV 1019 Ondansetron HCl 4 MG Q4HPRN PRN 03/21 2215 AC 03/23 IV 1104 Potassium Cl/ 1,000 ML .Q6H40M 03/21 2215 AC 03/23 Dextrose/Lact IV 0749 Ringer's Dose Instructions: (1)Morphine Sulfate: 2 TO 6 MG Orders Procedure Date/time Status FULL LIQUID DIET 03/23 L Active INCENTIVE SPIROMETRY 03/23 1045 Active URINE CULTURE 03/23 1045 Active BLOOD CULTURE 03/23 1045 Active RENAL PANEL 03/23 0400 Complete COMPLETE BLOOD COUNT 03/23 0400 Complete RT: SPO2 Therapy 03/22 1138 Active RT: O2 Therapy 03/22 1138 Active RT: Aerosol Therapy 07/25 1138 Active RT TREATMENT ORDER 03/22 1133 Active OXYGEN PROTOCOL 03/22 1133 Active PT Daily Note Primary Diagnosis: Precautions: Supine to Sit: Sit to Stand: Ambulated with: Number of Feet Ambulated: Ambulation Assistance: Number of Liters of 02 Used: Comments: PT Co-signature: Problems Problems Current Problems 1. Partial small bowel obstruction Assessment/Plan Passing flatus, no stool Continue IVF infusion Diet advanced per Dr. Boykin 2. UTI (lower urinary tract infection) Assessment/Plan Continue IV Ceftriaxone 3. Asthma Assessment/Plan Duo Nebs Q4H PRN Mild wheezing today 4. Hypothyroidism Assessment/Plan Continue Synthroid 5. Hypertension Assessment/Plan Continue current antihypertensive 6. Anxiety Assessment/Plan Continue current medication Plan Plans Activity Continue Current, PT Consult Diet Continue Current Nursing Possible Discharge in AM Medications/IV Plans Continue IV Fluids, Continue Antibiotics, Continue Current Meds Diagnostics Labs Ordered, Consult Condition Improving/Stable Disposition Surgical Time Spent 30 minutes Quality DVT Prophylaxis addressed, GI Prophylaxis addressed ZAID JACKSON M.D. 03/23/18 1426: Plan Plans Additional Comments s/e emr reviewed, dc iv opiate. added back home meds. surg gave diet full liq. dc whenok with surg <Electronically signed by Gissell MURRELLNDarleneP.> 03/24/18 1523 ROLAND LOPEZNDarlenePDarlene << Signature on File>> Reported By: ROLAND LOPEZ.NDarlenePDarlene Signed By: ZAID JACKSON M.D. Tests performed at: [place] [address] Observed: 03/23/2018 Status: F Source: [facility] 11:06 AM HOSPITAL REPOSITORY No Growth Performed By: #### M105.0000 #### [facility] [address] [place] [address] Observed: 03/23/2018 Status: F Source: [facility] 11:06 AM HOSPITAL REPOSITORY No Growth Performed By: #### M105.0000 #### [facility] [address] [place] [address] CBC Collected: 03/23/2018 Status: F Source: [facility] 4:42 AM HOSPITAL REPOSITORY TYPE CODE TESTS RESULT OUT OF RANGE REFERENCE UNITS LAB L200.0100 4.5-10.0 x10(3) Normal WBC 4.8 LAB L200.0200 3.30-5.00 x10(6) Normal RBC 3.88 LAB L200.0210 12.0-16.0 g/dL Low HGB 11.7 LAB L200.0220 36.0-48.0 % Low HCT 34.1 LAB L200.0230 80.0-99.0 fl Normal MCV 87.9 LAB L200.0240 28.5-32.9 pg Normal MCH 30.2 LAB L200.0250 33.0-36.0 g/dL Normal MCHC 34.3 LAB L200.0260 12.5-15.7 % Normal RDW 13.2 LAB L200.0270 150-450 X10(3) Normal PLT 162 LAB L200.0290 7.5-9.5 fl Normal MPV 8.5 LAB L200.0300 45.0-73.0 % Normal NEUT% 54.2 LAB L200.0310 16.0-48.0 % Normal LYMPH% 32.1 LAB L200.0320 4.3-11.2 % Normal MONO% 7.4 LAB L200.0330 0.5-4.9 % Normal EOS% 4.3 LAB L200.0340 0.0-1.0 % High BASO% 2.0 LAB L200.0350 1.40-6.50 x10(3) Normal NEUT# 2.60 LAB L200.0360 1.00-3.50 x10(3) Normal LYMPH# 1.60 LAB L200.0370 0.30-0.80 x10(3) Normal MONO# 0.40 LAB L200.0380 0.00-0.54 x10(3) Normal EOS# 0.20 LAB L200.0390 0.00-0.10 x10(3) Normal BASO# 0.10 Performed By: #### L200.0010 #### [facility] [address] [place] [address] RENAL Collected: 03/23/2018 Status: F Source: [facility] 4:42 AM HOSPITAL REPOSITORY TYPE CODE TESTS RESULT OUT OF RANGE REFERENCE UNITS LAB L100.0060 82-115 mg/dL GLUCOSE Normal 100 LAB L100.0110 8-23 mg/dL Low BUN 4 LAB L100.0131 0.50-0.90 mg/dL High CREATININE 0.92 LAB L100.0140 8.8-10.2 mg/dL Low CALCIUM 8.6 LAB L100.0150 135-145 mmol/L SODIUM Normal 142 LAB L100.0160 3.5-5.0 mmol/L Normal POTASSIUM 4.5 LAB L100.0170 98-107 mmol/L CHLORIDE Normal 106 LAB L100.0180 22-29 mmol/L TCO2 Normal 26 LAB L100.0185 15-22 mmol/L Low ANION GAP 14.5 LAB L100.0210 3.5-5.2 g/dL Low ALBUMIN 3.4 LAB L100.0270 2.5-4.5 mg/dL Normal PHOSPHORUS 3.7 LAB L100.0274 eGFR Normal nonAFR Rohan > 60 ml/Min/1.73m 2 LAB L100.0275 eGFR if Normal AFR ROHAN > 60 ml/min/1.73m 2 Result Comment: eGFR >= 60 Indicates normal kidney function. * eGFR IS AN ESTIMATE * (AFR ROHAN = ) (non-AFR AM = NON-) MDRD calculation used in the eGFR should not be used to dose medications. For further limitations of the eGFR please refer to the Physician Website or the National Kidney Disease Education Program website (www.nkdep.nih.gov). Performed By: #### L100.0020 #### [facility] [address] [place] [address] ABDOMEN (KUB)1 VIEW Observed: 03/23/2018 Status: F Source: [place] 4:00 AM [facility] REPOSITORY [address] [address] Name: RASHAWN ALMEIDA Phys: [place] BOYKIN M.D. : [birth year] Age: 62 Sex: F Acct: [id number] Loc: 3[facility]WEST Exam Date: 03/23/18 Status: ADM IN Radiology No.: [id number] Unit Number: [id number] Exam # Type/Exam [id number] RAD / ABDOMEN (KUB)1 VIEW EXAMINATION: AP supine abdomen CLINICAL INDICATION: Abdominal pain and discomfort COMPARISON: 03/22/2018. FINDINGS: Small bowel loops show a normal diameter. There is minimal bowel gas in the large bowel. No free air or ascites is seen. IMPRESSION: Normalized bowel gas pattern without evidence for high-grade small or large bowel obstruction. Professional interpretation provided by [facility], [place] on RAC-PC-66. Thank you for this referral. <<Signature on File>> Reported By: ALEYDA GUALLPA D.O. Signed In [facility] By: ALEYDA GUALLPA D.O. << Signature on File>> Reported By: ALEYDA GUALLPA D.O. Signed By: ALEYDA GUALLPA D.O. Tests performed at: [address] [address] PROGRESS Observed: 03/22/2018 Status: COMPLETED Source: [place] 2:15 PM [facility] REPOSITORY HNO ID: [id number] Author: Provider [facility] Service: (none) Author Type: Physician Type: Progress Notes Filed: 06/29/2018 7:25 PM Note Text: [place] [address] NUTRITION Progress Notes Patient: RASHAWN ALMEIDA : [birth year] Age: 62 Sex: F Attending Provider: ISHA Primary Care: TONNY EPPS M.D. Admit Date: 03/21/18 5.30 Room AND Bed: 3930B Report Date AND Time: 03/22/18 1415 Nutrition Assessment Complete Recommendations Based on the Completed Nutrition Assessment, please find the Recommendations Below: 1. ADAT to Low Fiber PO diet order when medically feasible <Electronically signed by ELLYN DE JESUS> 03/22/18 1415 ELLYN DE JESUS << Signature on File>> Reported By: ELLYN DE JESUS Signed By: ELLYN DE JESUS Tests performed at: [place] [id number] [place], [place] [address] CONSULT Observed: 03/22/2018 Status: COMPLETED Source: [place] 11:07 AM [facility] REPOSITORY HNO ID: [id number] Author: Roland Lopez CNP Service: (none) Author Type: Nurse Practitioner Type: Consults Filed: 06/29/2018 7:24 PM Note Text: [place] [address] CONSULTATION NOTES Patient: RASHAWN ALMEIDA [id number] [age] F Status: ADM IN [facility] 3930-B Report Date AND Time: 03/22/18 1107 Admitting Physician : [place] BOYKIN M.D. Consulting Physician: ROLAND LOPEZ See Addendum Subjective Date/Time Of Evaluation Date 03/22/18 Time 1015 Consult Order Requesting Physician: [place] BOYKIN M.D. Reason for Consult : Chronic chest complaints, UTI * Previous Progress Notes * Reports GERD symptoms, has hiatal hernia per patient, has COPD, Asthma. Uses home oxygen at night 2L and daytime only if she feels short of breath. Denies chest pain or shortness of breath. All systems were reviewed and all are negative except systems noted. Consult Notes Patient is a 62 year old pleasant, obese female who appears older than her stated age. Patient has past medical history to include COPD on night time oxygen, Asthma, GERD, SBO, Hypothyroidism and HTN as well as Anxiety. Hospitalist service was consulted to evaluate chest tightness symptoms. Patient denies chest pain or shortness of breath, however is noted to have some mild conversational dyspnea. She endorses dull ache in epigastric region of abdomen and reflux symptoms in her esophagus which she states is a burning sensation. Mild expiratory wheeze left upper lobe, cleared with cough, Lungs are clear to auscultation otherwise. Initial troponin drawn in ED was normal <0.010. She denies dysuria, urinary urgency or frequency, Urinalysis done in ED was noted to have Positive Nitrite, Small Leuk Esterase, 20-30 WBCs, and 2+ bacteria, Urine culture pending. She was given IV Ceftriaxone in ED and will be continued on this. Her SBO is managed by Surgery, she is refusing NG tube placement and has persistent nausea without vomiting. States that when SBO clears, she would like to start eating again. Currently she is not passing flatus or stool. Objective Focused Exam Performed General Appearance Alert, Oriented X3, Cooperative, No Acute Distress HEENT Atraumatic, PERRLA, EOMI, Mucous membranes dry (Mild), Tongue coated brownish-yellow Lungs Normal Air Movement, Wheeze (Faint left upper lobe) Neck Supple, No Thryomegaly, No Lymphadopathy Cardiovascular NSR, Normal S1, S2 Abdomen Soft, Tenderness to palpation epigastric region. Hyperactive bowel sounds Extremities No Cyanosis, No Edema Skin No Rashes, No Breakdown Neurological Normal Speech, Sensation Intact, Cranial Nerves 2-12 NL, Intact/non-focal, No sensory deficits, Age Appropriate Psych/Mental Status Normal Affect, Normal Mood, Pleasant Lymph No Adenopathy Normal for Patient Nutrition NPO Reviewed Medications Discontinued Scripts Hydroxyzine* Pamoate (Vistaril*) 25 MG PO Q4-6HPRN PRN anxiety Hydroxyzine* Pamoate (Vistaril*) 25 MG PO Q4-6HPRN PRN anxiety #30 CAP Prov: 01/28/18 DC: 03/21/18 1843 Not on Medication Reported Medications Oxycodone/Apap* 7.5/325 (Percocet* 7.5/325) 1 TAB PO TID PRN PAIN Escitalopram* Oxalate (Lexapro*) 5 MG PO DAILY Gabapentin* (Neurontin*) 300 MG PO TID Levothyroxine Sodium* (Synthroid*) 88 MCG PO DAILY ALPRAZolam* (Xanax*) 0.5 MG PO BID ALPRAZolam* (Xanax*) 0.5 MG PO BID #60 Hydrochlorothiazide* (Hydrodiuril*) 25 MG PO QDAY Hydrochlorothiazide* (Hydrodiuril*) 25 MG PO QDAY #30 Amlodipine* Besylate (Norvasc*) 5 MG PO QDAY Amlodipine* Besylate (Norvasc*) 5 MG PO QDAY #30 Discontinued Reported Medications ALPRAZolam* (Xanax*) 0.5 MG PO BID Lansoprazole* (Prevacid*) 30 MG PO QDAYPRN PRN GERD SX Amlodipine* Besylate (Norvasc*) 10 MG PO QDAY Alendronate* Sodium (Fosamax*) 70 MG PO Fr@0630 Alendronate* Sodium (Fosamax*) 70 MG PO Fr@0630 #12 DC: 03/21/189 Not on Medication Allergies Coded Allergies: No Known Drug Allergies (12/01/17) Problems Problems Current Problems 1. Partial small bowel obstruction Assessment/Plan Followed by surgery Continue NPO Continue IVF infusion 2. UTI (lower urinary tract infection) Assessment/Plan Continue IV Ceftriaxone 1 GM Q24H Urine culture pending ID and sens 3. Asthma Assessment/Plan Continue current meds Oxygen 2L via nc at night time OXygen titrate PRN Duo Nebs Q4H PRN wheezing or shortness of breath 4. Hypothyroidism Assessment/Plan Continue Levothyroxine 5. Hypertension Assessment/Plan Hydralazine 10 MG PRN SBP >170 Continue current medication 6. Anxiety Assessment/Plan Continue Ativan Plan Plans Activity Continue Current, PT Consult Diet Continue NPO Nursing See orders Medications/IV Plans Continue IV Fluids, Continue Antibiotics, Continue Current Meds Diagnostics Labs Ordered Condition Inadequate Response, Improving/Stable Disposition Surgical Time Spent 35 minutes Quality DVT Prophylaxis addressed, GI Prophylaxis addressed Additional Comments Thank you for allowing us to see this very pleasant lady. Likely chest tightness related to Asthma/COPD and GERD, non cardiac. <Electronically signed by Gissell MURRELLN.P.> 03/22/18 1550 ROLAND LOPEZN.Nalini. ADDENDUM ADDENDUM: ZAID JACKSON M.D. on 03/22/18 at 1704 d/w n/p <Electronically signed by ZAID JACKSON M.D.> 03/22/18 1705 ZAID JACKSON M.D. << Signature on File>> Reported By: ROLAND LOPEZ Signed By: ZAID JACKSON M.D. Tests performed at: [address] [address] HISTORY PHYSICAL Observed: 03/22/2018 Status: COMPLETED Source: [place] 8:01 AM [facility] REPOSITORY HNO ID: [id number] Author: Oh Boykin Service: (none) Author Type: Physician Type: HANDP Filed: 06/29/2018 7:24 PM Note Text: [place] [address] HEALTH INFORMATION MANAGEMENT SURGICAL HISTORY AND PHYSICAL Patient: RASHAWN ALMEIDA ROBERT M M.D. [id number] F Status: ADM IN [facility] 3930-B DATE OF ADMISSION 03/21/2018 Admission through the ER. HISTORY OF PRESENT ILLNESS This 62-year-old white female presents complaining of a couple of days of crampy pain, nausea, did not actually throw up, a little bit of flatus but decreased bowel movements. Came into the ER. They did a CT scan of the abdomen and pelvis shows basically a low grade mechanical small-bowel obstruction. No obvious tumors, probably from adhesions. No obvious incarcerated hernias. She is refusing the NG, still nauseated and again just some crampy pain but not too bad. Her white count is 8, hemoglobin 14, platelets 210,000. Urinalysis is positive for nitrites, 20 to 30 whites. We are going to send off a urine culture. The ER has already given her antibiotics. Sodium 141, potassium 4.2, BUN and creatinine 12 and 1.09. Liver panel normal except alk phos slightly elevated at 138 and lipase is normal. PAST MEDICAL HISTORY She has a past medical history of anxiety, I believe some panic disorders also hypertension. PAST SURGICAL HISTORY Past surgical history of hysterectomy, cholecystectomy, tubal, hernia repair, rotator cuff, gallbladder. She had a colonoscopy, upper scope within the last 5 years. Told me everything was okay for the most part. SOCIAL HISTORY Negative for alcohol, tobacco or drug use. ALLERGIES No known drug allergies. FAMILY HISTORY Noncontributory. MEDICATIONS Medications at home include Norvasc 5 mg day, hydrochlorothiazide 25 a day, Xanax 0.5 twice a day, Synthroid 88 mcg a day, Lexapro 5 mg a day, Neurontin 300 3 times a day and Percocet 3 times a day. REVIEW OF SYSTEMS Constitutional, Breast, COMMUNITY CULTURAL DEVELOPMENT OFFICER, Urologic: Negative. Skin: Negative. Cardiac, Respiratory: Positive for chronic chest pain. She had had an EKG in the ER and chest x-ray. I was told they were fine. She has had this worked up by her family doctor before apparently it sounds like it is probably anxiety. They did not feel it was anything else and her EKG just shows maybe some LVH, nonspecific T-wave abnormalities, sinus rhythm. No other acute findings. Again chest x-ray was apparently done. I do not have the results but I was told it was normal. GI: Positive for the above discomfort. Neuro, Musculoskeletal: All stable. LABORATORY DATA AND DIAGNOSTIC STUDIES She has the above blood work and CT scan. PHYSICAL EXAMINATION On exam no acute distress, alert and oriented x3 and obviously nervous patient. Blood pressure 139/84, sats 92%, respirations 16, pulse 70, temperature 98. Again alert and oriented x3. No acute distress. Neurologically: Intact motor, sensory, gait, posture. Bilateral breath sounds. Heart is regular. Neck: Nontender. Upper and Lower Extremities: No pain, swelling or masses. Abdomen is soft, obesely distended but no significant tenderness. Groin: No obvious hernias. Rectal: Deferred per patient. ASSESSMENT AND PLAN This is a 62-year-old white female with what appears to be a partial small-bowel obstruction. We will admit her, bowel rest, IV fluids, NG tube. She is already refusing the NG tube. I explained to her if it does not get better she may need surgery. She is up-to-date on Breast and COMMUNITY CULTURAL DEVELOPMENT OFFICER recommendations. No symptoms per the patient and up-to-date on colonoscopies. The chest pain is a chronic issue but I will consult the hospitalist while she is here just to make sure nothing else is going on and we will resume her home meds since she seems to needs these. <Electronically signed by OH BOYKIN M.D.> OH BOYKIN M.D. cc: OH BOYKIN M.D. << Signature on File>> Reported By: OH BOYKIN M.D. Signed By: OH BOYKIN M.D. Tests performed at: [address] [address] SURGICAL HISTORY AND Observed: 03/22/2018 Status: F Source: [facility] 8:01 AM [facility] [place] [address] HEALTH INFORMATION MANAGEMENT SURGICAL HISTORY AND PHYSICAL Patient: GRAYSONRASHAWN ROBERT M M.D. [id number] [age] F Status: ADM IN [facility] 3930-B DATE OF ADMISSION 03/21/2018 Admission through the ER. HISTORY OF PRESENT ILLNESS This 62-year-old white female presents complaining of a couple of days of crampy pain, nausea, did not actually throw up, a little bit of flatus but decreased bowel movements. Came into the ER. They did a CT scan of the abdomen and pelvis shows basically a low grade mechanical small-bowel obstruction. No obvious tumors, probably from adhesions. No obvious incarcerated hernias. She is refusing the NG, still nauseated and again just some crampy pain but not too bad. Her white count is 8, hemoglobin 14, platelets 210,000. Urinalysis is positive for nitrites, 20 to 30 whites. We are going to send off a urine culture. The ER has already given her antibiotics. Sodium 141, potassium 4.2, BUN and creatinine 12 and 1.09. Liver panel normal except alk phos slightly elevated at 138 and lipase is normal. PAST MEDICAL HISTORY She has a past medical history of anxiety, I believe some panic disorders also hypertension. PAST SURGICAL HISTORY Past surgical history of hysterectomy, cholecystectomy, tubal, hernia repair, rotator cuff, gallbladder. She had a colonoscopy, upper scope within the last 5 years. Told me everything was okay for the most part. SOCIAL HISTORY Negative for alcohol, tobacco or drug use. ALLERGIES No known drug allergies. FAMILY HISTORY Noncontributory. MEDICATIONS Medications at home include Norvasc 5 mg day, hydrochlorothiazide 25 a day, Xanax 0.5 twice a day, Synthroid 88 mcg a day, Lexapro 5 mg a day, Neurontin 300 3 times a day and Percocet 3 times a day. REVIEW OF SYSTEMS Constitutional, Breast, COMMUNITY CULTURAL DEVELOPMENT OFFICER, Urologic: Negative. Skin: Negative. Cardiac, Respiratory: Positive for chronic chest pain. She had had an EKG in the ER and chest x-ray. I was told they were fine. She has had this worked up by her family doctor before apparently it sounds like it is probably anxiety. They did not feel it was anything else and her EKG just shows maybe some LVH, nonspecific T-wave abnormalities, sinus rhythm. No other acute findings. Again chest x-ray was apparently done. I do not have the results but I was told it was normal. GI: Positive for the above discomfort. Neuro, Musculoskeletal: All stable. LABORATORY DATA AND DIAGNOSTIC STUDIES She has the above blood work and CT scan. PHYSICAL EXAMINATION On exam no acute distress, alert and oriented x3 and obviously nervous patient. Blood pressure 139/84, sats 92%, respirations 16, pulse 70, temperature 98. Again alert and oriented x3. No acute distress. Neurologically: Intact motor, sensory, gait, posture. Bilateral breath sounds. Heart is regular. Neck: Nontender. Upper and Lower Extremities: No pain, swelling or masses. Abdomen is soft, obesely distended but no significant tenderness. Groin: No obvious hernias. Rectal: Deferred per patient. ASSESSMENT AND PLAN This is a 62-year-old white female with what appears to be a partial small-bowel obstruction. We will admit her, bowel rest, IV fluids, NG tube. She is already refusing the NG tube. I explained to her if it does not get better she may need surgery. She is up-to-date on Breast and COMMUNITY CULTURAL DEVELOPMENT OFFICER recommendations. No symptoms per the patient and up-to-date on colonoscopies. The chest pain is a chronic issue but I will consult the hospitalist while she is here just to make sure nothing else is going on and we will resume her home meds since she seems to needs these. <Electronically signed by OH BOYKIN M.D.> OH BOYKIN M.D. cc: OH BOYKIN M.D. << Signature on File>> Reported By: OH BOYKIN M.D. Signed By: OH BOYKIN M.D. Tests performed at: [address] [address] CBC Collected: 03/22/2018 Status: F Source: [facility] 4:48 AM HOSPITAL REPOSITORY TYPE CODE TESTS RESULT OUT OF RANGE REFERENCE UNITS LAB L200.0100 4.5-10.0 x10(3) Normal WBC 6.0 LAB L200.0200 3.30-5.00 x10(6) Normal RBC 3.90 LAB L200.0210 12.0-16.0 g/dL Low HGB 11.9 LAB L200.0220 36.0-48.0 % Low HCT 34.5 LAB L200.0230 80.0-99.0 fl Normal MCV 88.6 LAB L200.0240 28.5-32.9 pg Normal MCH 30.5 LAB L200.0250 33.0-36.0 g/dL Normal MCHC 34.4 LAB L200.0260 12.5-15.7 % Normal RDW 13.7 LAB L200.0270 150-450 X10(3) Normal PLT 164 LAB L200.0290 7.5-9.5 fl Normal MPV 8.5 LAB L200.0300 45.0-73.0 % Normal NEUT% 53.2 LAB L200.0310 16.0-48.0 % Normal LYMPH% 33.0 LAB L200.0320 4.3-11.2 % Normal MONO% 8.6 LAB L200.0330 0.5-4.9 % Normal EOS% 3.7 LAB L200.0340 0.0-1.0 % High BASO% 1.5 LAB L200.0350 1.40-6.50 x10(3) Normal NEUT# 3.20 LAB L200.0360 1.00-3.50 x10(3) Normal LYMPH# 2.00 LAB L200.0370 0.30-0.80 x10(3) Normal MONO# 0.50 LAB L200.0380 0.00-0.54 x10(3) Normal EOS# 0.20 LAB L200.0390 0.00-0.10 x10(3) Normal BASO# 0.10 Performed By: #### L200.0010 #### [facility] [address] [place] [address] RENAL Collected: 03/22/2018 Status: F Source: [facility] 4:48 AM HOSPITAL REPOSITORY TYPE CODE TESTS RESULT OUT OF RANGE REFERENCE UNITS LAB L100.0060 82-115 mg/dL Normal GLUCOSE 93 LAB L100.0110 8-23 mg/dL Normal BUN 8 LAB L100.0131 0.50-0.90 mg/dL Normal CREATININE 0.82 LAB L100.0140 8.8-10.2 mg/dL Low CALCIUM 8.3 LAB L100.0150 135-145 mmol/L Normal SODIUM 141 LAB L100.0160 3.5-5.0 mmol/L Normal POTASSIUM 4.1 LAB L100.0170 98-107 mmol/L CHLORIDE Abnormal 109 Result Comment: Delta check (#) indicates a significant change in this laboratory value. It needs clinical correlation with patient situation or treatment. If the change in this test does not match your clinical situation or therapy, you may wish to re-test to verify the result. LAB L100.0180 22-29 mmol/L Low TCO2 21 LAB L100.0185 15-22 mmol/L Normal ANION GAP 15.1 LAB L100.0210 3.5-5.2 g/dL Abnormal ALBUMIN 3.1 Result Comment: Delta check (#) indicates a significant change in this laboratory value. It needs clinical correlation with patient situation or treatment. If the change in this test does not match your clinical situation or therapy, you may wish to re-test to verify the result. LAB L100.0270 2.5-4.5 mg/dL Normal PHOSPHORUS 3.8 LAB L100.0274 eGFR Normal nonAFR Rohan > 60 ml/Min/1. 73m2 LAB L100.0275 eGFR if Normal AFR ROHAN > 60 ml/min/1. 73m2 Result Comment: eGFR >= 60 Indicates normal kidney function. * eGFR IS AN ESTIMATE * (AFR ROHAN = ) (non-AFR AM = NON-) MDRD calculation used in the eGFR should not be used to dose medications. For further limitations of the eGFR please refer to the Physician Website or the National Kidney Disease Education Program website (www.nkdep.nih.gov). Performed By: #### L100.0020 #### [facility] - LABORATORY [address] [place] [address] ABDOMEN (KUB)1 VIEW Observed: 03/22/2018 Status: F Source: [place] 4:[address] [address] Name: RASHAWN ALMEIDA Phys: OH BOYKIN M.D. : [birth year] Age: 62 Sex: F Acct: [id number] Loc: 3[facility] Exam Date: 03/22/18 Status: ADM IN Radiology No.: [id number] Unit Number: [id number] Exam # Type/Exam [id number] RAD / ABDOMEN (KUB)1 VIEW Clinical history: Followup small bowel obstruction. Comparison: CT scan of the abdomen and pelvis on 03/21/2018. Portable supine x-ray of the abdomen was obtained at 6:36 AM. Mildly dilated loops of small intestine are present in the midabdomen. There is a small amount of gas scattered through the colon. There is no evidence of pneumatosis. The colon is not dilated. No pathologic calcifications are detected. Impression: Persistent small bowel obstruction. Professional interpretation provided by [facility], [place] on [id number]. Thank you for this referral. <<Signature on File>> Reported By: MIR WALSH M.D. Signed In NovaPro By: MIR WALSH M.D. << Signature on File>> Reported By: MIR WALSH M.D. Signed By: MIR WALSH M.D. Tests performed at: [facility] [address] [place], [place] [address] CBC Collected: 03/21/2018 Status: F Source: [facility] 7:07 PM HOSPITAL REPOSITORY TYPE CODE TESTS RESULT OUT OF RANGE REFERENCE UNITS LAB L200.0100 4.5-10.0 x10(3) Normal WBC 8.9 LAB L200.0200 3.30-5.00 x10(6) Normal RBC 4.70 LAB L200.0210 12.0-16.0 g/dL Normal HGB 14.0 LAB L200.0220 36.0-48.0 % Normal HCT 41.3 LAB L200.0230 80.0-99.0 fl Normal MCV 87.8 LAB L200.0240 28.5-32.9 pg Normal MCH 29.9 LAB L200.0250 33.0-36.0 g/dL Normal MCHC 34.0 LAB L200.0260 12.5-15.7 % Normal RDW 13.8 LAB L200.0270 150-450 X10(3) Normal PLT 210 LAB L200.0290 7.5-9.5 fl Normal MPV 8.5 LAB L200.0300 45.0-73.0 % Normal NEUT% 63.1 LAB L200.0310 16.0-48.0 % Normal LYMPH% 26.1 LAB L200.0320 4.3-11.2 % Normal MONO% 7.3 LAB L200.0330 0.5-4.9 % Normal EOS% 2.2 LAB L200.0340 0.0-1.0 % High BASO% 1.3 LAB L200.0350 1.40-6.50 x10(3) Normal NEUT# 5.60 LAB L200.0360 1.00-3.50 x10(3) Normal LYMPH# 2.30 LAB L200.0370 0.30-0.80 x10(3) Normal MONO# 0.70 LAB L200.0380 0.00-0.54 x10(3) Normal EOS# 0.20 LAB L200.0390 0.00-0.10 x10(3) Normal BASO# 0.10 Performed By: #### L200.0010 #### [facility] [address] [place] [address] CMP Collected: 03/21/2018 Status: F Source: [facility] 7:07 PM HOSPITAL REPOSITORY TYPE CODE TESTS RESULT OUT OF RANGE REFERENCE UNITS LAB L100.0060 82-115 mg/dL GLUCOSE Normal 96 LAB L100.0110 8-23 mg/dL BUN Normal 12 LAB L100.0131 0.50-0.90 mg/dL High CREATININE 1.09 LAB L100.0140 8.8-10.2 mg/dL CALCIUM Normal 9.3 LAB L100.0150 135-145 mmol/L SODIUM Normal 141 LAB L100.0160 3.5-5.0 mmol/L Normal POTASSIUM 4.2 LAB L100.0170 98-107 mmol/L CHLORIDE Normal 101 LAB L100.0180 22-29 mmol/L TCO2 Normal 25 LAB L100.0185 15-22 mmol/L ANION Normal GAP 19.2 LAB L100.0200 6.4-8.3 g/dL TOTAL Normal PROTEIN 7.7 LAB L100.0210 3.5-5.2 g/dL ALBUMIN Normal 4.1 LAB L100.0220 0.2-1.2 mg/dL TOTAL Normal BILIRUBIN 0.6 LAB L100.0240 5-32 U/L AST Normal 21 LAB L100.0250 5-33 U/L ALT Normal 13 LAB L100.0260 35-105 U/L High ALK. PHOS 138 LAB L100.0262 1.5-4.5 g/dL Normal GLOBULIN,CALC 3.6 LAB L100.0264 1.1-2.5 A:G Normal RATIO 1.13 LAB L100.0274 eGFR Normal nonAFR Rohan 51 LAB L100.0275 eGFR if Normal AFR ROHAN > 60 ml/min/1.73m 2 Result Comment: eGFR >= 60 Indicates normal kidney function. * eGFR IS AN ESTIMATE * (AFR ROHAN = ) (non-AFR AM = NON-) MDRD calculation used in the eGFR should not be used to dose medications. For further limitations of the eGFR please refer to the Physician Website or the National Kidney Disease Education Program website (www.nkdep.nih.gov). Performed By: #### L100.0005, L100.0350, L301.0120 #### [facility] - [facility]ORY [address] [place] [address] LIPASE Collected: 03/21/2018 Status: F Source: [facility] 7:07 HOSPITAL REPOSITORY TYPE CODE TESTS RESULT OUT OF RANGE REFERENCE UNITS LAB L100.0350 13-60 U/L Normal LIPASE 18 Performed By: #### L100.0005, L100.0350, L301.0120 #### [facility] - [facility] [address] [place] [address] TROPONIN T Collected: 03/21/2018 Status: F Source: [place] 7:[address] [place] [address] REPOSITORY TYPE CODE TESTS RESULT OUT OF RANGE REFERENCE UNITS LAB L301.0120 0-0.010 ng/mL Normal TROPONIN T <0.010 Performed By: #### L100.0005, L100.0350, L301.0120 #### [facility] - [facility] [address] [place] [address] URINALYSIS Collected: 03/21/2018 Status: F Source: [place] 7:00 [facility] REPOSITORY Order Comment: Urine Specimen Source+ CLEAN CATCH TYPE CODE TESTS RESULT OUT OF RANGE REFERENCE UNITS LAB L200.3010 YELLOW URINE Normal COLOR YELLOW LAB L200.3020 CLEAR URINE SL Normal APPEARANC CLOUDY LAB L200.3030 NEGATIVE MG/DL URINE Normal GLUCOSE NEGATIVE LAB L200.3050 NEGATIVE URINE Normal BILIRUBIN NEGATIVE LAB L200.3060 NEGATIVE MG/DL URINE Normal KETONE NEGATIVE LAB L200.3070 1.001-1.035 URINE Normal SPECIFIC >=1.030 LAB L200.3080 NEGATIVE URINE Normal BLOOD TRACE-INTACT LAB L200.3090 5.0-8.0 URINE Normal PH 5.5 LAB L200.3100 NEGATIVE MG/DL URINE Normal PROTEIN NEGATIVE LAB L200.3110 0.2-1.0 EU/DL URINE Normal UROBILINO 0.2 LAB L200.3120 NEGATIVE URINE Normal NITRITE POSITIVE LAB L200.3130 NEGATIVE URINE Normal LEUKOCYTE SMALL Performed By: #### L200.3000, L200.3190 #### [facility] [address] [place] [address] URINE MICROSCOP Collected: 03/21/2018 Status: F Source: [place] 7:00 [facility] REPOSITORY Order Comment: Urine Specimen Source+ CLEAN CATCH TYPE CODE TESTS RESULT OUT OF RANGE REFERENCE UNITS LAB L200.3200 0-5 Normal URINE WBC 20-30 LAB L200.3210 0-2 Normal URINE RBC 0 LAB L200.3225 NEGATIVE Normal SQUAMOUS OCC LAB L200.3250 NEGATIVE Normal URINE MUCUS TR LAB L200.3260 NEGATIVE Normal URINE BACTERIA 2+ Performed By: #### L200.3000, L200.3190 #### [facility] [address] [place] [address] ABD/PEL W CONTRAST Observed: 03/21/2018 Status: F Source: [place] 7:00 [facility] REPOSITORY [address] [address] Name: RASHAWN ALMEIDA Phys: NGUYỄN WOLFF D.O. : 53 Age: 62 Sex: F Acct: [id number] Loc: ED Exam Date: 03/21/18 Status: [facility] ER Radiology No.: [id number] Unit Number: [id number] Exam # Type/Exam [id number] CT / CT ABD/PEL W CONTRAST CT abdomen and pelvis with IV contrast History: Abdominal pain Comparison: 10/24/2017 There are degenerative changes in the spine. Small areas of scarring and volume loss are present at the lower lobes. Small scattered areas of renal scarring are present. The upper abdominal solid organs are otherwise unremarkable. There is no adenopathy, free air or free fluid seen. Mild scattered colonic diverticulosis is present without diverticulitis. There is mild small bowel dilatation in the midportion of the abdomen eccentric towards the right. No wall thickening, pneumatosis or free air seen. No focal mass is evident. Impression: Low grade mechanical small bowel obstruction at the ileum. This may be adhesive, as no focal mass is evident. No evidence for perforation or abscess. This exam was performed according to our departmental dose optimization program, and includes the following measures where applicable: automated exposure control, adjustment of the mAs and/or kVp according to patient size and/or exam, and an iterative reconstruction algorithm. Professional interpretation provided by [facility], [place] on RAC-PC-[id number]. Thank you for this referral. <<Signature on File>> Reported By: ELIZABETH MARTINEZ M.D. Signed In NovaPro By: ELIZABETH MARTINEZ M.D. << Signature on File>> Reported By: ELIZABETH MARTINEZ M.D. Signed By: ELIZABETH MARTINEZ M.D. Tests performed at: [place] [address] CHEST-ONE VIEW ONLY - Observed: 03/21/2018 Status: F Source: [facility] CXR1 7:00 PM [facility] [place] [place] REPOSITORY [place] [address] Name: RASHAWN ALMEIDA Phys: NGUYỄN WOLFF D.O. : [birth year] Age: 62 Sex: F Acct: [id number] Loc: [facility] Exam Date: 03/21/18 Status: ADM IN Radiology No.: [id number] Unit Number: [id number] Exam # Type/Exam [id number] RAD / CHEST-ONE VIEW ONLY - CXR1 PROCEDURE: Chest radiograph. Single frontal view. HISTORY: Chest pain. COMPARISON: 01/28/2018 FINDINGS: The heart and mediastinal silhouette are normal. The lungs are clear except for some minimal stable linear atelectasis in the left midlung. No pulmonary vasculature congestion or visible pleural fluid. Bones are unremarkable. IMPRESSION: 1. No visible acute thoracic process. Professional interpretation provided by [facility], [place] on RAC-PC-[id number]. Thank you for this referral. <<Signature on File>> Reported By: ELIZABETH HERRERA M.D. Signed In NovaPro By: ELIZABETH HERRERA M.D. << Signature on File>> Reported By: ELIZABETH HERRERA M.D. Signed By: ELIZABETH HERRERA M.D. Tests performed at: [address] [address] ELECTROCARDIOGRAM Observed: 03/21/2018 Status: F Source: [facility] 6:41 PM [facility] [address] HEALTH INFORMATION MANAGEMENT ELECTROCARDIOGRAM REPORT Patient: RASHAWN ALMEIDA Ordering: NGUYỄN WOLFF D.O. [id number] [age] F Exam Date: 03/21/18 Report #: [id number] Status: ADM Krystyna EDADMIT EDADMIT-02 SINUS RHYTHM MODERATE VOLTAGE CRITERIA FOR LVH, CONSIDER NORMAL VARIANT NONSPECIFIC T-WAVE ABNORMALITY Physician Event Mgr: ACACIA WOLFF M.D. Ventricular Rate EK /min R-R Interval: 809 ms P Wave duration: 122 ms QRS duration: 80 ms P-R interval: 161 ms Q-T interval: 381 ms Q-T interval (corrected): 410 ms Q-T Dispersion: ms P wave axis: 13 deg QRS axis: 2 deg T axis: -16 deg Signed in [place] 03/21/182131 NGUYỄN WOLFF D.O. cc: << Signature on File>> Reported By: NGUYỄN WOLFF D.O. Signed By: NGUYỄN WOLFF D.O. Tests performed at: [place] [address] THERAPY NT Observed: 02/15/2018 Status: COMPLETED Source: [place] 3:09 PM [facility] REPOSITORY HNO ID: [id number] Author: Provider [facility] Service: (none) Author Type: Physician Type: Therapy (PT/OT/Speech/Resp) Filed: 06/29/2018 6:27 PM Note Text: [facility] [place] [address] OCCUPATIONAL THERAPY Patient: RASHAWN ALMEDIA ARABELLA LOVE C.N.P. [id number] [age] F Status: REG RCR OT OCCUPATIONAL THERAPY progress note DATE: 02/15/2018 MEDICAL DIAGNOSIS: Left hand pain, status post trigger finger release of left ring finger. Therapy DIAGNOSES: 1. Pain. 2. Scar. 3. Numbness. ONSET: October 2017 SUMMARY: OT initial evaluation was completed on 01/13/2018. The patient then completed 8 sessions. from January 18 through February 15. Eight sessions were approved through [place]. Treatment has consistently included ultrasound and other manual techniques to address scar tissue. Focus of treatment has been on reducing scar tissue in the palm. Strengthening exercises have also been done; however, strengthening exercises have been hampered with complaints of arthritic type pain in the wrist. GOAL STATUS: 1. Increase left cost estimator strength to 52 pounds. Goal not met. Initial strength score was 45 pounds. When retested on February 13, cost estimator was 42 pounds. Again, strengthening efforts have been hampered by pain. 2. Increase left pinch strengths by 2-3 pounds. Goal partially met. Lateral pinch showed a decline from 13 to 12 pounds, 3-point pinch increased from 8 to 10 pounds, two-point pinch increased from 5 to 9 pounds. 3. Patient to report a 50% improvement with pain in the left hand. Goal in progress. Initial pain rating was 8/10 and pain was constant. She now reports pain at 5-6/10 and intermittent. 4. Patient to report a 50% improvement with numbness in the left ring finger. Goal met. She now denies that there is any numbness at all in the ring finger. For G code purposes, her category will be upgraded from a CK to CJ. The patient would like to continue with therapy. Therapist does feel that there has been improvement with the scar tissue. Pain has also improved since starting therapy. She does have full range of motion of her left hand. She no longer has complaints that the ring finger catches. Therapist feels that a lot of her pain is due to the scar tissue in the palm. OT would like to continue 2x a week for another 3 weeks. We will request further approval from [place]. Thank you for this referral. Dictated By: NILS RENE/Lyle Signed : ODESSA PRITCHETT 02/15/18 3450 << Signature on File>> Reported By: ODESSA PRITCHETT Signed By: ODESSA PRITCHETT Tests performed at: [address] [address] OCCUPATIONAL THERAPY Observed: 02/15/2018 Status: F Source: [place] 3:[address] [facility] [address] OCCUPATIONAL THERAPY Patient: RASHAWN ALMEIDA LYNNE E C.Abdiaziz [id number] [age] F Status: REG RCR OT OCCUPATIONAL THERAPY progress note DATE: 02/15/2018 MEDICAL DIAGNOSIS: Left hand pain, status post trigger finger release of left ring finger. Therapy DIAGNOSES: 1. Pain. 2. Scar. 3. Numbness. ONSET: October 2017 SUMMARY: OT initial evaluation was completed on 01/13/2018. The patient then completed 8 sessions. from January 18 through February 15. Eight sessions were approved through [place]. Treatment has consistently included ultrasound and other manual techniques to address scar tissue. Focus of treatment has been on reducing scar tissue in the palm. Strengthening exercises have also been done; however, strengthening exercises have been hampered with complaints of arthritic type pain in the wrist. GOAL STATUS: 1. Increase left cost estimator strength to 52 pounds. Goal not met. Initial strength score was 45 pounds. When retested on February 13, cost estimator was 42 pounds. Again, strengthening efforts have been hampered by pain. 2. Increase left pinch strengths by 2-3 pounds. Goal partially met. Lateral pinch showed a decline from 13 to 12 pounds, 3-point pinch increased from 8 to 10 pounds, two-point pinch increased from 5 to 9 pounds. 3. Patient to report a 50% improvement with pain in the left hand. Goal in progress. Initial pain rating was 8/10 and pain was constant. She now reports pain at 5-6/10 and intermittent. 4. Patient to report a 50% improvement with numbness in the left ring finger. Goal met. She now denies that there is any numbness at all in the ring finger. For G code purposes, her category will be upgraded from a CK to CJ. The patient would like to continue with therapy. Therapist does feel that there has been improvement with the scar tissue. Pain has also improved since starting therapy. She does have full range of motion of her left hand. She no longer has complaints that the ring finger catches. Therapist feels that a lot of her pain is due to the scar tissue in the palm. OT would like to continue 2x a week for another 3 weeks. We will request further approval from [place]. Thank you for this referral. Dictated By: ODESSA PRITCHETT OTR/L Signed : ODESSA PRITCHETT OTR/L 02/15/18 1510 << Signature on File>> Reported By: ODESSA PRITCHETT OTR/Lyle Signed By: ODESSA PRITCHETT OTR/Lyle Tests performed at: [address] [address] CBC W/AUTO DIFFERENTIAL Collected: 02/05/2018 Status: F Source: [place] 7:12 PM [facility] REPOSITORY TYPE CODE TESTS RESULT OUT OF RANGE REFERENCE UNITS LAB WBCIR(XIAO 3.6-10.8 K/uL NC) WBC 8.4 LAB RBC(LOINC 3.83-5.19 M/uL ) RBC 4.59 LAB HGB(LOINC 11.1-13.7 g/dL ) HGB 13.4 LAB HCT(LOINC 33.4-46.0 % ) HCT 39.9 LAB MCV(LOINC 81.0-99.0 fL ) MCV 86.9 LAB MCH(LOINC 27.0-31.0 pg ) MCH 29.2 LAB MCHC(LOIN 33.0-37.0 g/dL C) MCHC 33.6 LAB RDW(LOINC 11.5-14.5 % ) RDW 13.7 LAB PLTI(LOIN 148-402 K/uL C) Low Platelet Count 93 LAB MPV(LOINC 7.4-10.4 fL ) MPV 9.4 LAB SEGR(LOIN 43.0-65.0 % C) Neutrophils % 52.5 LAB LYMPR(XIAO 17.0-45.5 % NC) Lymphocytes % 26.8 LAB MONOR(XIAO 5.5-11.7 % NC) High Monocytes % 18.4 LAB EOSR(LOIN 0.9-2.9 % C) Eosinophils % 2.1 LAB BASOR(XIAO 0.2-1.0 % NC) Basophils % 0.2 LAB NRBC%(XIAO % NC) NRBC % 0.0 LAB ASEGR(XIAO 2.2-4.8 K/uL NC) Neutrophils Abs. # 4.4 LAB ALYMR(XIAO 1.3-2.9 K/uL NC) Lymphocytes Abs. # 2.3 LAB AMONR(XIAO 0.3-0.8 K/uL NC) High Monocytes Abs. # 1.6 LAB AEOSR(XIAO 0.0-0.2 K/uL NC) Eosinophils Abs. # 0.2 LAB ABASR(XIAO 0.0-0.1 K/uL NC) Basophils Abs. # 0.0 LAB NRBC#(XIAO K/uL NC) NRBC Abs. # 0.0 LAB MOCT%(XIAO NC) Monocytosis % Abnormal PRESENT LAB LYPN%(XIAO NC) Lymphopenia % TRACE EVIDENCE TECHNICIAN LAB LYPN#(XIAO NC) Lymphopenia # TRACE EVIDENCE TECHNICIAN LAB LYCT%(XIAO NC) Lymphocytosis % TRACE EVIDENCE TECHNICIAN LAB NEPN%(XIAO NC) Neutropenia % TRACE EVIDENCE TECHNICIAN LAB NEPN#(XIAO NC) Neutropenia # TRACE EVIDENCE TECHNICIAN LAB EOPH%(XIAO NC) Eosinophilia % TRACE EVIDENCE TECHNICIAN LAB ANEM(LOIN C) Anemia TRACE EVIDENCE TECHNICIAN LAB PNCP(LOIN C) Pancytopenia TRACE EVIDENCE TECHNICIAN LAB SMLPT(XIAO NC) Small Platelets TRACE EVIDENCE TECHNICIAN LAB ERCT(LOIN C) Erythocytosis TRACE EVIDENCE TECHNICIAN LAB MACT(LOIN C) Macrocytosis TRACE EVIDENCE TECHNICIAN LAB BAPH#(XIAO NC) Bosophillia # TRACE EVIDENCE TECHNICIAN LAB BAPH%(XIAO NC) Basophillia % TRACE EVIDENCE TECHNICIAN LAB LUCT(LOIN C) Leukocytosis TRACE EVIDENCE TECHNICIAN LAB NEPH%(XIAO NC) Neutrophilia % TRACE EVIDENCE TECHNICIAN LAB NEPH#(XIAO NC) Neutrophilla # TRACE EVIDENCE TECHNICIAN LAB ANCT(LOIN C) Anisocytosis TRACE EVIDENCE TECHNICIAN LAB MICT(LOIN C) Microcytosis TRACE EVIDENCE TECHNICIAN LAB HY(LOINC) Hypochromia TRACE EVIDENCE TECHNICIAN LAB PKCT(LOIN C) Poikilocytosis TRACE EVIDENCE TECHNICIAN LAB THCT(LOIN C) Thrombocytosis TRACE EVIDENCE TECHNICIAN LAB THCO(LOIN C) Thrombocytopenia TRACE EVIDENCE TECHNICIAN LAB THCP(LOIN C) Thrombocytopenia. TRACE EVIDENCE TECHNICIAN LAB LRGPT(XIAO NC) Large Platelets TRACE EVIDENCE TECHNICIAN LAB LUPN(LOIN C) Leukopenia TRACE EVIDENCE TECHNICIAN LAB LYCT#(XIAO NC) Lymphocytosis # TRACE EVIDENCE TECHNICIAN LAB EOPH#(XIAO NC) Eosinophilia # TRACE EVIDENCE TECHNICIAN Performed By: #### CBC #### [facility] [address] [place], [place] [address] DIFFERENTIAL MANUAL Collected: 02/05/2018 Status: F [facility] PM [facility] REPOSITORY TYPE CODE TESTS RESULT OUT OF REFERENCE UNITS RANGE LAB WBCC(LOINC 3.6-10.8 K/uL ) WBC Corrected for NRBC TRACE EVIDENCE TECHNICIAN LAB SEGM(LOINC 43-65 % ) Neutrophils 59 LAB LYMPM(LOIN 17-46 % C) Lymphocytes 30 LAB MONOM(LOIN 6-12 % C) Monocytes 8 LAB EOSM(LOINC 1-3 % ) Eosinophils 3 LAB BASOM(LOIN 0-1 % C) Basophils TRACE EVIDENCE TECHNICIAN LAB ALYMP(LOIN % C) Lymphocytes Atypical TRACE EVIDENCE TECHNICIAN LAB RLYMP(LOIN C) Lymphocytes Reactive TRACE EVIDENCE TECHNICIAN LAB BAND(LOINC 0-3 % ) Bands TRACE EVIDENCE TECHNICIAN LAB META(LOINC 0-0 % ) Metamyelocytes TRACE EVIDENCE TECHNICIAN LAB MYELO(LOIN 0-0 % C) Myelocytes TRACE EVIDENCE TECHNICIAN LAB PROMY(LOIN 0-0 % C) Promyelocyte TRACE EVIDENCE TECHNICIAN LAB BLAST(LOIN 0-0 % C) Blast. TRACE EVIDENCE TECHNICIAN LAB MONBL(LOIN % C) Monoblasts TRACE EVIDENCE TECHNICIAN LAB MYEBL(LOIN % C) Myeloblasts TRACE EVIDENCE TECHNICIAN LAB IMMAT(LOIN % C) Immature Cells TRACE EVIDENCE TECHNICIAN LAB NRBC(LOINC 0-0 /100 WBC ) Nucleated RBC TRACE EVIDENCE TECHNICIAN LAB PLTR(LOINC ) Platelet Slide Review TRACE EVIDENCE TECHNICIAN LAB DOHLE(LOIN C) Dohle Bodies TRACE EVIDENCE TECHNICIAN LAB TOXGR(LOIN C) Toxic Granulation TRACE EVIDENCE TECHNICIAN LAB HYPER(LOIN C) Hyperchromia TRACE EVIDENCE TECHNICIAN LAB HYPO(LOINC ) Hypochromia TRACE EVIDENCE TECHNICIAN LAB POLY(LOINC ) Polychromasia TRACE EVIDENCE TECHNICIAN LAB MICRO(LOIN C) Microcytic TRACE EVIDENCE TECHNICIAN LAB MACRO(LOIN C) Macrocytosis TRACE EVIDENCE TECHNICIAN LAB ANISO(LOIN C) Anisocytosis TRACE EVIDENCE TECHNICIAN LAB POIK(LOINC ) Poikilocytosis TRACE EVIDENCE TECHNICIAN LAB TEAR(LOINC ) Tear Drop Cells TRACE EVIDENCE TECHNICIAN LAB TARG(LOINC ) Target Cells TRACE EVIDENCE TECHNICIAN LAB STOMA(LOIN C) Stomatocytes TRACE EVIDENCE TECHNICIAN LAB SPHER(LOIN C) Spherocytes TRACE EVIDENCE TECHNICIAN LAB SCHIS(LOIN C) Schistocytes TRACE EVIDENCE TECHNICIAN LAB OVAL(LOINC ) Ovalocytes TRACE EVIDENCE TECHNICIAN LAB FRAG(LOINC ) Fragmented Cells TRACE EVIDENCE TECHNICIAN LAB CRENA(LOIN C) Crenated Cells TRACE EVIDENCE TECHNICIAN LAB RICHARD(LOINC ) [place] Cell TRACE EVIDENCE TECHNICIAN LAB ACANT(LOIN C) Acanthocytes TRACE EVIDENCE TECHNICIAN LAB SICKL(LOIN C) Sickle Cells TRACE EVIDENCE TECHNICIAN LAB HOWJB(LOIN C) [place] Bodies TRACE EVIDENCE TECHNICIAN LAB ENRIQUE(LOIN C) Enrique Bodies TRACE EVIDENCE TECHNICIAN LAB BSTIP(LOIN C) Basophilic Stippling TRACE EVIDENCE TECHNICIAN LAB CABOT(LOIN C) [place] Rings TRACE EVIDENCE TECHNICIAN LAB SMUDG(LOIN C) Smudge Cells TRACE EVIDENCE TECHNICIAN Performed By: #### DIFF #### [facility] [address], [place] [address] COMPREHENSIVE METABOLIC Collected: 02/05/2018 Status: F Source: [place] 7:12 PM [facility] REPOSITORY TYPE CODE TESTS RESULT OUT OF REFERENCE UNITS RANGE LAB NA(LOINC) 132-145 mmol/L Low Sodium 127 LAB K(LOINC) 3.3-5.1 mmol/L Low Potassium 3.2 LAB CLI(LOINC) 94-110 mmol/L Chloride 103 LAB TCO2(LOINC 21-34 mmol/L ) Total Co2 24 LAB GLU(LOINC) 65-100 mg/dL Glucose 76 LAB BUN(LOINC) 3.2-26.9 mg/dL BUN 9.5 LAB CREAT(LOIN 0.51-0.95 mg/dL C) Creatinine 0.84 LAB CA(LOINC) 8.2-10.0 mg/dL Calcium 8.4 LAB ALB(LOINC) 3.4-5.0 g/dL Albumin 3.5 LAB TP(LOINC) 6.1-8.2 g/dL Protein 7.2 LAB TBIL(LOINC mg/dL ) Total Bilirubin 0.40 LAB ALP(LOINC) 54-112 U/L Alkaline High Phosphatase 116 LAB ALT(LOINC) 13-66 U/L ALT (SGPT) 23 LAB AST(LOINC) 3-39 U/L AST (SGOT) 14 LAB AGAP(LOINC 8.0-16.0 mmol/L ) Low Anion Gap 3.2 LAB B-C(LOINC) 6-20 BUN/CREAT Ratio 11 LAB A-G(LOINC) 1.1-2.5 Low A/G Ratio 0.9 LAB GLOB(LOINC 1.5-4.5 g/dL ) Globulin 3.7 LAB EGFR4(LOIN >60 C) EGFR Other Races >60 LAB EGFR5(LOIN >60 C) EGFR >60 Result Comment: Chronic Kidney Disease less than 60 mL/min/1.73 m2 Kidney Failure less than 15 mL/min/1.73 m2 Average estimated GFR by age: 60-69 years 85 mL/min/1.73 m2 Performed By: #### CMP #### [address] [address] LACTIC ACID (VENOUS) Collected: 02/05/2018 Status: F Source: [place] 7:12 PM [facility] REPOSITORY TYPE CODE TESTS RESULT OUT OF REFERENCE UNITS RANGE LAB LACID(LOINC 0.4-2.0 mmol/L ) Lactic Acid 0.7 (Venous) Result Comment: Please note change in normal range Performed By: #### LACID #### [address] [id number] ED PROV NOTE Observed: 01/31/2018 Status: COMPLETED Source: [place] 7:17 AM [facility] REPOSITORY HNO ID: [id number] Author: Dianne Quiroga Service: (none) Author Type: Physician Type: ED Provider Notes Filed: 06/29/2018 6:01 PM Note Text: [place] [address] HEALTH INFORMATION MANAGEMENT EMERGENCY DEPARTMENT REPORT Patient: JAYSHREE ALMEIDAN QUIROGADIANNE D.O. [id number] [age] F Status: DEP ER ED Date of Service: 01/28/18 CHIEF COMPLAINT This is a 62-year-old female with chief complaint of anxiety. HISTORY OF PRESENT ILLNESS The patient called EMS and she simultaneously called the [facility]'s department wanting to talk to the [facility]. She said that a week ago her ixzcannn-gh-vws stole her Xanax and every night she lays in bed angry at the fumhygbg-xf-vcy, cannot get to sleep because she does not have any Xanax and has a severe anxiety attack. She feels fine during the daytime but she gets chest pain at night when she starts getting worked up about this loss of her medication. She says the uvvkxqne-nw-gkz is presently in [facility] but still she wanted to talk to the air director about this problem, so they met her here [place]. She has a history of hypertension. She has no history of coronary artery disease. She does not seem to have any chest pain during the daytime. She does not seem to have any chest pain with exertion, it is all at rest. Tonight she said it made her feel short of breath and a little bit nauseated. She says emphatically zkyi-dwa-vdkb she knows this is just her anxiety and she truly does seem to be getting worked up as she talks to me about this. She is very angry. PAST MEDICAL HISTORY She has a history of Florian's palsy, osteoarthritis, gastroesophageal reflux disease, DVTs. She wears oxygen. SOCIAL HISTORY She is . Does not smoke. She has had a little bit of alcohol tonight. PHYSICAL EXAMINATION On exam vital signs are stable. She is afebrile, alert, a well-developed, well-nourished female in no distress. Her head is atraumatic, normocephalic. Oral mucosa pink, moist. Neck supple. Cardiovascular exam regular. Breath sounds are clear. Her abdomen is benign. Extremities are intact x4 without clubbing, cyanosis or edema. I do not appreciate focal deficits. Her skin is warm and dry. Calves are supple and nontender. EMERGENCY DEPARTMENT COURSE In the emergency department the patient was given some Ativan because obviously she was very angry about the situation with her asxondrg-yl-sdd and she calmly went to sleep having no further complaints. Her labs are stable noting mild hypokalemia which we have replaced. Her chest x-ray is negative. I did talk with the patient about her risk for coronary disease. She again is emphatic this is her anxiety. She is not interested in anything but a prescription for Xanax, which I actually will not be providing but I will write her for a few Vistaril. Impression Anxiety. PLAN I will have her follow up with Dr. Epps in the office. <Electronically signed by DIANNE QUIROGA D.O.> 02/01/18 0702 DIANNE QUIROGA D.O. cc: DIANNE QUIROGA D.O. << Signature on File>> Reported By: DIANNE QUIROGA D.O. Signed By: DIANNE QUIROGA D.O. Tests performed at: [place] [id number] [place], [place] [address] EMERGENCY DEPARTMENT Observed: 01/31/2018 Status: F Source: [place] 7:17 AM [facility] [place] [place] [address] HEALTH INFORMATION MANAGEMENT EMERGENCY DEPARTMENT REPORT Patient: RASHAWN ALMEIDA DIANNE QUIROGA D.O. [id number] [age] F Status: DEP ER ED Date of Service: 01/28/18 CHIEF COMPLAINT This is a 62-year-old female with chief complaint of anxiety. HISTORY OF PRESENT ILLNESS The patient called EMS and she simultaneously called the [facility] department wanting to talk to the [facility]. She said that a week ago her wtdmoxzc-px-xni stole her Xanax and every night she lays in bed angry at the lmxcrktp-xd-fjz, cannot get to sleep because she does not have any Xanax and has a severe anxiety attack. She feels fine during the daytime but she gets chest pain at night when she starts getting worked up about this loss of her medication. She says the xkfdgnag-lt-mrd is presently in [facility] but still she wanted to talk to the [facility] about this problem, so they met her here tonight. She has a history of hypertension. She has no history of coronary artery disease. She does not seem to have any chest pain during the daytime. She does not seem to have any chest pain with exertion, it is all at rest. Tonight she said it made her feel short of breath and a little bit nauseated. She says emphatically ouxp-plf-hdhs she knows this is just her anxiety and she truly does seem to be getting worked up as she talks to me about this. She is very angry. PAST MEDICAL HISTORY She has a history of Florian's palsy, osteoarthritis, gastroesophageal reflux disease, DVTs. She wears oxygen. SOCIAL HISTORY She is . Does not smoke. She has had a little bit of alcohol tonight. PHYSICAL EXAMINATION On exam vital signs are stable. She is afebrile, alert, a well-developed, well-nourished female in no distress. Her head is atraumatic, normocephalic. Oral mucosa pink, moist. Neck supple. Cardiovascular exam regular. Breath sounds are clear. Her abdomen is benign. Extremities are intact x4 without clubbing, cyanosis or edema. I do not appreciate focal deficits. Her skin is warm and dry. Calves are supple and nontender. EMERGENCY DEPARTMENT COURSE In the emergency department the patient was given some Ativan because obviously she was very angry about the situation with her hmvpacft-ax-wmi and she calmly went to sleep having no further complaints. Her labs are stable noting mild hypokalemia which we have replaced. Her chest x-ray is negative. I did talk with the patient about her risk for coronary disease. She again is emphatic this is her anxiety. She is not interested in anything but a prescription for Xanax, which I actually will not be providing but I will write her for a few Vistaril. Impression Anxiety. PLAN I will have her follow up with Dr. Epps in the office. <Electronically signed by DIANNE QUIROGA D.O.> 02/01/18 0702 DIANNE QUIROGA D.O. cc: DIANNE QUIROGA D.O. << Signature on File>> Reported By: DIANNE QUIROGA D.O. Signed By: DIANNE QUIROGA D.O. Tests performed at: [address] [address] CHEST-ONE VIEW ONLY - Observed: 01/28/2018 Status: F Source: [place] CXR1 11:44 PM [facility] [place] [place] REPOSITORY [address] [address] Name: RASHAWN ALMEIDA Phys: DIANNE QUIROGA D.O. : [birth year] Age: 62 Sex: F Acct: [id number] Loc: ED Exam Date: 01/28/18 Status: REG ER Radiology No.: [id number] Unit Number: [id number] Exam # Type/Exam [id number] RAD / CHEST-ONE VIEW ONLY - CXR1 Clinical history: Chest pain. Short of breath. Comparison: Chest x-ray on 09/08/2017. Portable AP radiograph of the chest was obtained at 12:13 AM. The heart size is at the upper limits of normal. There is no infiltrate or pulmonary edema. There is no sign of pleural fluid or pneumothorax. Impression: No acute chest process. Professional interpretation provided by [facility], [place] on [id number]. Thank you for this referral. <<Signature on File>> Reported By: MIR WALSH M.D. Signed In NovaPro By: MIR WALSH M.D. << Signature on File>> Reported By: MIR WLASH M.D. Signed By: MIR WALSH M.D. Tests performed at: [address] [address] ELECTROCARDIOGRAM Observed: 01/28/2018 Status: F Source: [place] 1:51 AM [facility] [place] [address] HEALTH INFORMATION MANAGEMENT ELECTROCARDIOGRAM REPORT Patient: RASHAWN ALMEIDA Ordering: DIANNE QUIROGA D.O. [id number] [age] F Exam Date: 01/28/18 Report #: [id number] Status: DEP ER ED SINUS RHYTHM VOLTAGE CRITERIA FOR LVH NONSPECIFIC T-WAVE ABNORMALITY ABNORMAL ECG PREVIOUS TRACIN08/29/17 11.32 Physician Event Mgr: DIANNE QUIROGA D.O. Ventricular Rate EK /min R-R Interval: 964 ms P Wave duration: 127 ms QRS duration: 94 ms P-R interval: 173 ms Q-T interval: 439 ms Q-T interval (corrected): 444 ms Q-T Dispersion: ms P wave axis: 27 deg QRS axis: -1 deg T axis: 5 deg Signed in [place] 01/28/18 0718 DIANNE QUIROGA D.O. cc: << Signature on File>> Reported By: DIANNE QUIROGA D.O. Signed By: QUIROGA,DIANNE K D.O. Tests performed at: [address], [place] [address] CBC Collected: 01/27/2018 Status: F Source: [facility] 11:53 PM HOSPITAL REPOSITORY Order Comment: PATIENT IN TESTING TYPE CODE TESTS RESULT OUT OF RANGE REFERENCE UNITS LAB L200.0100 4.5-10.0 x10(3) Normal WBC 8.8 LAB L200.0200 3.30-5.00 x10(6) Normal RBC 4.59 LAB L200.0210 12.0-16.0 g/dL Normal HGB 13.5 LAB L200.0220 36.0-48.0 % Normal HCT 40.2 LAB L200.0230 80.0-99.0 fl Normal MCV 87.6 LAB L200.0240 28.5-32.9 pg Normal MCH 29.5 LAB L200.0250 33.0-36.0 g/dL Normal MCHC 33.7 LAB L200.0260 12.5-15.7 % Normal RDW 13.3 LAB L200.0270 150-450 X10(3) Normal PLT 228 LAB L200.0290 7.5-9.5 fl Normal MPV 8.4 LAB L200.0300 45.0-73.0 % Normal NEUT% 60.2 LAB L200.0310 16.0-48.0 % Normal LYMPH% 30.8 LAB L200.0320 4.3-11.2 % Normal MONO% 6.3 LAB L200.0330 0.5-4.9 % Normal EOS% 1.4 LAB L200.0340 0.0-1.0 % High BASO% 1.3 LAB L200.0350 1.40-6.50 x10(3) Normal NEUT# 5.30 LAB L200.0360 1.00-3.50 x10(3) Normal LYMPH# 2.70 LAB L200.0370 0.30-0.80 x10(3) Normal MONO# 0.60 LAB L200.0380 0.00-0.54 x10(3) Normal EOS# 0.10 LAB L200.0390 0.00-0.10 x10(3) Normal BASO# 0.10 Performed By: #### L200.0010, L200.1000 #### [facility] [address] [place] [address] MANUAL DIFF Collected: 01/27/2018 Status: F Source: [facility] 11:53 PM HOSPITAL REPOSITORY Order Comment: PATIENT IN TESTING TYPE CODE TESTS RESULT OUT OF RANGE REFERENCE UNITS LAB L200.1050 45-73 % Normal SEGS 54 LAB L200.1060 0-6 % Normal BANDS 1 LAB L200.1070 16-48 % Normal LYMPHS 33 LAB L200.1080 4-12 % Normal MONOS 4 LAB L200.1090 1-5 % Normal EOS 3 LAB L200.1100 0-1 % High BASOS 2 LAB L200.1110 0-1 % High METAS 2 LAB L200.1120 0-0 % High MYELOS 1 LAB L200.[address] 100 LAB L200.1180 Normal RBC MORPH NORMAL LAB L200.1260 Normal PLT EST NORMAL LAB L200.1270 Normal TOX GRAN SLT LAB L200.1375 Normal SMUDGE RARE LAB L200.1415 Normal VAC RARE Performed By: #### L200.0010, L200.1000 #### [facility] [address] [place] [id number] BMP Collected: 01/27/2018 Status: F Source: [facility] 11:53 PM HOSPITAL REPOSITORY Order Comment: PATIENT IN TESTING TYPE CODE TESTS RESULT OUT OF RANGE REFERENCE UNITS LAB L100.0060 82-115 mg/dL GLUCOSE Normal 113 LAB L100.0110 8-23 mg/dL BUN Normal 12 LAB L100.0131 0.50-0.90 mg/dL Normal CREATININE 0.88 LAB L100.0140 8.8-10.2 mg/dL CALCIUM Normal 9.0 LAB L100.0150 135-145 mmol/L SODIUM Normal 139 LAB L100.0160 3.5-5.0 mmol/L Low POTASSIUM 3.3 LAB L100.0170 98-107 mmol/L CHLORIDE Normal 101 LAB L100.0180 22-29 mmol/L Low TCO2 20 LAB L100.0185 15-22 mmol/L ANION Normal GAP 21.3 LAB L100.0274 eGFR Normal nonAFR Rohan > 60 ml/Min/1.73m 2 LAB L100.0275 eGFR if Normal AFR ROHAN > 60 ml/min/1.73m 2 Result Comment: eGFR >= 60 Indicates normal kidney function. * eGFR IS AN ESTIMATE * (AFR ROHAN = ) (non-AFR AM = NON-) MDRD calculation used in the eGFR should not be used to dose medications. For further limitations of the eGFR please refer to the Physician Website or the National Kidney Disease Education Program website (www.nkdep.nih.gov). Performed By: #### L100.0010 #### [facility] [address] [place] [address] CK-MB Collected: 01/27/2018 Status: F Source: [facility] 11:44 HOSPITAL REPOSITORY Order Comment: PATIENT IN TESTING TYPE CODE TESTS RESULT OUT OF RANGE REFERENCE UNITS LAB L301.0100 1.0-5.34 ng/mL Normal CK-MB 2.5 Performed By: #### L301.0100, L301.0105, L301.0120 #### [facility] [address] [place] [address] CK Collected: 01/27/2018 Status: F Source: [facility] 11:44 HOSPITAL REPOSITORY Order Comment: PATIENT IN TESTING TYPE CODE TESTS RESULT OUT OF RANGE REFERENCE UNITS LAB L301.0105 26-192 IU/L Normal CK 109 Result Comment: Relative Index is not calculated as it is only applicable to CK values greater than or equal to 192 IU/L. NO RELATIVE INDEX PERFORMED Performed By: #### L301.0100, L301.0105, L301.0120 #### [facility] [address] [place] [address] TROPONIN T Collected: 01/27/2018 Status: F Source: [place] 11:44 [facility] REPOSITORY Order Comment: PATIENT IN TESTING TYPE CODE TESTS RESULT OUT OF RANGE REFERENCE UNITS LAB L301.0120 0-0.010 ng/mL Normal TROPONIN T <0.010 Performed By: #### L301.0100, L301.0105, L301.0120 #### [facility] [address] [place] [address] THERAPY NT Observed: 01/16/2018 Status: COMPLETED Source: [place] 9:54 AM [facility] REPOSITORY HNO ID: [id number] Author: Provider [facility] Service: (none) Author Type: Physician Type: Therapy (PT/OT/Speech/Resp) Filed: 06/29/2018 5:36 PM Note Text: [facility] [address] [address] OCCUPATIONAL THERAPY Patient: RASHAWN ALMEIDA VINCE T M.D. [id number] [age] F Status: REG RCR OT OCCUPATIONAL THERAPY INITIAL EVALUATION DATE: 01/13/2018 MEDICAL DIAGNOSIS: 1. Left hand pain, status post trigger finger release of left ring finger. THERAPY DIAGNOSES: 1. Pain. 2. Scar. 3. Numbness. ONSET: October 2017. HISTORY: The patient had a trigger finger release back in October of this year. Since then, she has been reporting that the finger has been numb. Pain levels are also extremely high. She is left hand dominant, which is the side of the surgery. The patient lives alone. She is independent with ADLs and home management. She also drives. She does not work. Hobbies include music, playing the guitar. EXAMINATION: The patient has been ordered an OT evaluation. The patient's chief complaint is pain and numbness in the left ring finger. Pain level is rated at 8/10. She reports that the pain is constant. She also states that since the surgery that her ring finger is completely numb. There did not appear to be any swelling in the hand or specifically the ring finger. Scar tissue is noted in the palm of the hand but would be considered on the mild side. She does report increased pain with palpation to the scar. Active range of motion for the left hand is essentially within normal limits for both flexion and extension. She does have full opposition. Strength is slightly down for the left side since it is her dominant hand. Right cost estimator is 42 pounds, left cost estimator is 45 pounds. Lateral pinch on both sides is 13 pounds. 3 point pinch on right side 11 pounds, left side 8 pounds. 2 point pinch on right side 6 pounds, left side 5 pounds. For G code purposes, she will be assigned a CK category based on a combination of pain levels, range of motion, and strength in the left hand. Performance deficits include pain, scar, and numbness. DECISION MAKING: After analysis of her occupational profile, data from the exam, treatment options, comorbidities, and modifications, overall complexity of the evaluation is in the low category. SHORT TERM GOALS TO BE MET IN 4 WEEKS: 1. Increase left cost estimator strength to 52 pounds. 2. Increase left pinch strengths by 2 to 3 pounds. 3. Patient to report a 50% improvement with pain in the left hand. 4. Patient to report a 50% improvement with numbness in the left ring finger. PATIENT GOAL: Decrease pain, regain normal feeling in the ring finger. REHAB POTENTIAL: Fair/good. TREATMENT PLAN: Therapeutic exercise and activity, modalities, manual therapy, scar management, pain management, patient education, and home exercise program. FREQUENCY AND DURATION: OT would like to see the patient 2 times a week for 4 weeks. DISCHARGE PLAN: Further recommendations will follow at the completion of therapy. Thank you for this referral. Dictated By: NILS RENE/Lyle Signed : ODESSA PRITCHETT 01/16/18 0956 << Signature on File>> Reported By: ODESSA PRITCHETT/Lyle Signed By: ODESSA PRITCHETT/Lyle Tests performed at: [place] [address] OCCUPATIONAL THERAPY Observed: 01/16/2018 Status: F Source: [place] 9:54 AM [facility] [address] [address] OCCUPATIONAL THERAPY Patient: TALA ALMEIDACASSIDY TAVARES M.D. [id number] [age] F Status: REG RCR OT OCCUPATIONAL THERAPY INITIAL EVALUATION DATE: 01/13/2018 MEDICAL DIAGNOSIS: 1. Left hand pain, status post trigger finger release of left ring finger. THERAPY DIAGNOSES: 1. Pain. 2. Scar. 3. Numbness. ONSET: October 2017. HISTORY: The patient had a trigger finger release back in October of this year. Since then, she has been reporting that the finger has been numb. Pain levels are also extremely high. She is left hand dominant, which is the side of the surgery. The patient lives alone. She is independent with ADLs and home management. She also drives. She does not work. Hobbies include music, playing the [employer]. EXAMINATION: The patient has been ordered an OT evaluation. The patient's chief complaint is pain and numbness in the left ring finger. Pain level is rated at 8/10. She reports that the pain is constant. She also states that since the surgery that her ring finger is completely numb. There did not appear to be any swelling in the hand or specifically the ring finger. Scar tissue is noted in the palm of the hand but would be considered on the mild side. She does report increased pain with palpation to the scar. Active range of motion for the left hand is essentially within normal limits for both flexion and extension. She does have full opposition. Strength is slightly down for the left side since it is her dominant hand. Right cost estimator is 42 pounds, left cost estimator is 45 pounds. Lateral pinch on both sides is 13 pounds. 3 point pinch on right side 11 pounds, left side 8 pounds. 2 point pinch on right side 6 pounds, left side 5 pounds. For G code purposes, she will be assigned a CK category based on a combination of pain levels, range of motion, and strength in the left hand. Performance deficits include pain, scar, and numbness. DECISION MAKING: After analysis of her occupational profile, data from the exam, treatment options, comorbidities, and modifications, overall complexity of the evaluation is in the low category. SHORT TERM GOALS TO BE MET IN 4 WEEKS: 1. Increase left cost estimator strength to 52 pounds. 2. Increase left pinch strengths by 2 to 3 pounds. 3. Patient to report a 50% improvement with pain in the left hand. 4. Patient to report a 50% improvement with numbness in the left ring finger. PATIENT GOAL: Decrease pain, regain normal feeling in the ring finger. REHAB POTENTIAL: Fair/good. TREATMENT PLAN: Therapeutic exercise and activity, modalities, manual therapy, scar management, pain management, patient education, and home exercise program. FREQUENCY AND DURATION: OT would like to see the patient 2 times a week for 4 weeks. DISCHARGE PLAN: Further recommendations will follow at the completion of therapy. Thank you for this referral. Dictated By: NILS RENE/Lyle Signed : ODESSA PRITCHETT 01/16/18 0956 << Signature on File>> Reported By: ODESSA PRITCHETT OTR/Lyle Signed By: ODESSA PRITCHETT OTR/Lyle Tests performed at: [place] [address] VENOUS DUPLEX OF Observed: 01/09/2018 Status: F Source: [facility] 12:00 [place] [address] Vascular Lab - [facility] Accredited in: Extracranial Cerebrovascular, Visceral Vascular, Vascular Screening & Peripheral Arterial & Venous Testing [employer] REPORT Patient: RASHAWN ALMEIDA Rosa Dr: ARABELLA LOVENDarlenePDarlene [id number] [age] F Status: REG CLI CARD Reason for Visit: RT LEG PAIN Service Date: 01/09/18 Access#: [id number] Procedure: VENOUS DUPLEX OF SINGLE LEG Conclusions: Right 1. Negative for deep venous thrombosis 2. Negative for superficial venous thrombosis 3. Negative for venous incompetence 4. Normal venous duplex Abbreviated Final Report. Full Report available via Link to [employer] in [employer] Image Viewer . Electronically Signed by: TONNY NGUYEN M.D. 01/10/18 0805 TONNY NGUYEN M.D. cc: ARABELLA LOVENDarlenePDarlene << Signature on File>> Reported By: TONNY NGUYEN M.D. Signed By: TONNY NGUYEN M.D. Tests performed at: [address] [address] THERAPY NT Observed: 12/09/2017 Status: COMPLETED Source: [place] 9:16 AM [facility] [place] REPOSITORY HNO ID: [id number] Author: Provider [facility] Service: (none) Author Type: Physician Type: Therapy (PT/OT/Speech/Resp) Filed: 06/29/2018 4:31 PM Note Text: [facility] OF [address] [address] PHYSICAL THERAPY REPORT Patient: TALA ALMEIDACASSIDY TAVARES M.D. [id number] [age] F Status: REG RCR PT Physical Therapy Progress Report Date:12/09/2017 Medicare Interval Period: November 11 to 12/09/2017 Dr. Nath, As you know we have been following the plan of care for your patient. As you may recall, you sent the patient to the [facility] with the diagnosis of left lower extremity weakness. The patient's current status is as follows: Subjective Statements: Upon arrival the patient reports 0/10 left lower extremity pain. She is pleased with her progress and notes that she will continue independently at this time. Objective Statements: The patient demonstrates manual muscle scores of her bilateral lower extremities at 5/5 except for that of left knee extension at 4-/5 and bilateral hip flexion at 4/5. We progressed her plan of care with strengthening, stabilization, range of motion, gait, balance, and proprioception exercises. She has achieved or partially achieved all functional goals. Functional Testing: The patient's current functional limitation is 0%, while their initial functional limitation was 80%. This is based on the visual analogue pain scale per Medicare functional reporting requirements. The patient will be discharged to a home exercise program at this time. If I can provide you with any further assistance, please do not hesitate to contact me. Thank you for the opportunity to participate in your patient's plan of care. Sincerely, Dictated By: JORGE LARA DPT Signed By: JORGE LARA DPT 12/09/17 0918 << Signature on File>> Reported By: JORGE LARA DPMakeda Signed By: JORGE LARA DPT Tests performed at: [place] [id number] PHYSICAL THERAPY Observed: 12/09/2017 Status: F Source: [facility] 9:16 AM [facility] REPOSITORY [facility] OF [address] [address] PHYSICAL THERAPY REPORT Patient: RASHAWN ALMEIDA VINCE T Yariel [id number] [age] F Status: REG RCR PT Physical Therapy Progress Report Date:12/09/2017 Medicare Interval Period: November 11 to 12/09/2017 Dr. Nath, As you know we have been following the plan of care for your patient. As you may recall, you sent the patient to the [facility] with the diagnosis of left lower extremity weakness. The patient's current status is as follows: Subjective Statements: Upon arrival the patient reports 0/10 left lower extremity pain. She is pleased with her progress and notes that she will continue independently at this time. Objective Statements: The patient demonstrates manual muscle scores of her bilateral lower extremities at 5/5 except for that of left knee extension at 4-/5 and bilateral hip flexion at 4/5. We progressed her plan of care with strengthening, stabilization, range of motion, gait, balance, and proprioception exercises. She has achieved or partially achieved all functional goals. Functional Testing: The patient's current functional limitation is 0%, while their initial functional limitation was 80%. This is based on the visual analogue pain scale per Medicare functional reporting requirements. The patient will be discharged to a home exercise program at this time. If I can provide you with any further assistance, please do not hesitate to contact me. Thank you for the opportunity to participate in your patient's plan of care. Sincerely, Dictated By: JORGE LARA DPT Signed By: JORGE LARA DPT 12/09/17 0918 << Signature on File>> Reported By: JORGE LARA DPMakeda Signed By: JORGE LARA DPT Tests performed at: [address] [address] PROGRESS Observed: 12/01/2017 Status: COMPLETED Source: [place] 4:51 PM [facility] [place] REPOSITORY HNO ID: [id number] Author: Fatou De La Rosa Service: (none) Author Type: Physician Type: Progress Notes Filed: 06/29/2018 4:19 PM Note Text: [facility] [place] [address] FIRST CARE REPORT Patient: RASHAWN ALMEIDA,-FATOU Chen M.D. [id number] [age] F Status: REG POV FC Date of Service: 12/01/17 Report Date AND Time: 12/01/17 1651 HPI History Of Present Illness Chief Complaint Upper Resp Congestion (FC) CC History Cough, sinus GUAMAN, hot and cold chills for over 2 weeks. SHe has cough productive of yellow phlegm and yellow sinus drainage. She endorses nosebleeds most recently 3 days ago. She has shortness of breath with cough. No rash, no documented fever. She now has hoarse voice as well. She has used some numbing cough drops and some prescription cough medicine with minor relief. Vital Signs Vital Signs First Last Result Date Time Result Date Time Pulse Ox 96 12/01 1646 96 12/01 1646 B/P 139/93 12/01 1646 139/93 12/01 1646 Temp 97.6 12/01 1646 97.6 12/01 1646 Pulse 72 12/01 1646 72 12/01 1646 Resp 18 12/01 1646 18 12/01 1646 Medications Reported Medications ALPRAZolam* (Xanax*) 0.5 MG PO BID Oxycodone/Apap* 7.5/325 (Percocet* 7.5/325) 1 TAB PO TID PRN PAIN Escitalopram* Oxalate (Lexapro*) 5 MG PO DAILY Gabapentin* (Neurontin*) 300 MG PO BID Levothyroxine Sodium* (Synthroid*) 88 MCG PO DAILY Lansoprazole* (Prevacid*) 30 MG PO QDAYPRN PRN GERD SX Amlodipine* Besylate (Norvasc*) 10 MG PO QDAY Allergies Coded Allergies: No Known Drug Allergies (12/01/17) Patient Health History Medical Problems Abdominal pain Acute gastritis Anxiety Asthma Bacterial upper respiratory infection Florian's palsy Bronchitis Constipation Cough Cough Diarrhea Diverticulosis DJD (degenerative joint disease) DVT of right axillary vein, acute Filling defect on imaging study GERD (gastroesophageal reflux disease) Hypertension Hypothyroidism Ileus Injury of right upper arm Insect bite O2 dependent Osteoarthritis Osteoporosis Partial small bowel obstruction Pharyngitis Pre-syncope Rhinitis Right leg DVT Right otitis media Sinusitis Syncope Transaminitis UTI (lower urinary tract infection) Surgical Problems H/O left knee surgery History of cholecystectomy History of hand surgery History of hysterectomy Hx of carpal tunnel repair Hx of cataract surgery Hx of hernia repair Hx of thyroidectomy Hx of tubal ligation Status post rotator cuff repair Family History Problems Family history of cerebrovascular accident Family history of coronary artery disease Family history of hepatic cirrhosis Family history of hypertension Family history of malignant neoplasm OARRS Accessed and Reviewed NO Review of Systems General Body Aches, Chills, Fatigue. Denies: Fever. Skin No: Rash. Head Sinus Headache. Ear Denies: Ear Pain. Throat Sore Throat, Scratchy, Hoarseness. Respiratory Cough, Productive. Denies: Dyspnea w/excertion. Gastrointestinal Denies: Nausea, Vomiting. Physical Examination General Alert, Non-toxic Apperance Skin Arnett, Warm, and Dry Head Normocephalic, Frontal Perc Sinus Tender Ears Normal Tympanic Membranes, No Redness, No Fluids, No Bulging Noted Nose No Nasal Discharge, Mucosa Arnett, Septum Midline, no scabs or signs of epistaxis Mouth Mouth pink/wet Throat Uvula Midline Non-Edema, Unremarkable, no posterior pharyngeal bleeding noted. Neck Neck Supple, No Mennigitis Symptoms, No Cervical Adenopathy Heart/Cardiovascular Regular Rate and Rhythm, Normal S-1, S-2 Respiratory Lungs Are Clear, No Wheezes, No Rhonchi Noted, No E to A change, no dullness to percussion Impression And Plan High Blood Pressure Your Blood Pressure was found to be higher than normal. Please see your personal physician for a checkup. High Blood Pressure can be a temporary condition or a serious condition. Special Instructions o Follow up with your Primary Care Physician in 2-3 days if no improvement in your condition. DO NOT TAKE ANY XANAX OR PERCOCET WHILE TAKING CODEINE COUGH SYRUP. If you develop fever measured more than 100.7 for more than a day, if short of breath or chest pain not associated with coughing please get rechecked in Emergency. o Call or return to [facility] if you experience problems relating to your visit. All medications and their side effects were explained to the patient and were understood. At home instructions were explained to the patient and were understood. Report to the [facility] Emergency Department if any further problems occur Or Call . Diagnosis 1. Sinusitis *Prescriptions Prescriptions (FC) Medication Dose/Rte/Freq Days Qty Entered Max Daily Dose Amoxicillin/Clav 875-125 MG 1 TAB PO Q12H 20 12/01/17 (Augmentin* 875-125 MG) 1701 Strength: 1 EACH TABLET Guaifenesin/Codeine* 10 ML PO 4 100 12/01/17 (Robitussin* Ac) Q4-6HPRN PRN COUGH 1701 Strength: 473 ML LIQUID <Electronically signed by ROSSANA DE LA ROSA M.D.> 12/01/17 1707 ROSSANA DE LA ROSA M.D. << Signature on File>> Reported By: ROSSANA DE LA ROSA M.D. Signed By: ROSSANA DE LA ROSA M.D. Tests performed at: [place] [address] H&H Collected: 11/28/2017 Status: F Source: [facility] 10:39 AM HOSPITAL REPOSITORY TYPE CODE TESTS RESULT OUT OF RANGE REFERENCE UNITS LAB L200.0210 12.0-16.0 g/dL Normal HGB 12.9 LAB L200.0220 36.0-48.0 % Normal HCT 37.8 Performed By: #### L200.0020 #### [facility] [address] [place] [address] THERAPY NT Observed: 11/21/2017 Status: COMPLETED Source: [place] 5:18 PM [facility] REPOSITORY HNO ID: [id number] Author: Provider [facility] Service: (none) Author Type: Physician Type: Therapy (PT/OT/Speech/Resp) Filed: 06/29/2018 4:02 PM Note Text: [facility] [place] [address] PHYSICAL THERAPY REPORT Patient: RASHAWN ALMEIDA VINCE T M.D. [id number] [age] F Status: REG RCR PT PHYSICAL THERAPY PROGRESS REPORT DATE: 11/21/[address] Cassidy Nath As you know we have been following in the plan of care for your patient secondary to left lower extremity weakness and osteoarthritis of multiple joints. We received a note from the patient's insurance asking for further clarification of her functional limitations, active range of motion, strength, pain, and the number of visits she has been seen for physical therapy. The patient reports her functional limitations as follows: She is unable to stand for any length of time greater than 5 minutes. She also notes at times she is not able to walk greater than 50 feet due to pain in her lower extremities. Active range of motion of the right hip is to 90 degrees of flexion. The left hip has 80 degrees of flexion. Active range of motion of the right knee is from 0 degrees to 135 degrees. The left knee is 7 degrees to 125 degrees. The patient demonstrates the following strength measurements: Hip flexion left 4-/5, right 4/5; knee flexion bilaterally 4/5; knee extension left 4-/5, right 4/5; dorsiflexion bilaterally 4+/5. The patient rates her pain at 4/10 for total body pain. This is decreased compared to her initial evaluation. The patient was seen for six physical therapy visits prior to today's date. We are seeking additional approval from her insurance company for physical therapy. Thank you for the opportunity to participate in your patient's plan of care. Dictated By: Robbin HILTON Signed By: AKI RAMOS 11/21/17 6708 << Signature on File>> Reported By: AKI RAMOS Signed By: AKI RAMOS Tests performed at: [place] [id number] PHYSICAL THERAPY Observed: 11/21/2017 Status: F Source: [facility] 5:[address] [facility] [place] [address] PHYSICAL THERAPY REPORT Patient: RASHAWN ALMEIDA VINCE T M.D. [id number] [age] F Status: REG RCR PT PHYSICAL THERAPY PROGRESS REPORT DATE: 11/21/[address] Cassidy Nath As you know we have been following in the plan of care for your patient secondary to left lower extremity weakness and osteoarthritis of multiple joints. We received a note from the patient's insurance asking for further clarification of her functional limitations, active range of motion, strength, pain, and the number of visits she has been seen for physical therapy. The patient reports her functional limitations as follows: She is unable to stand for any length of time greater than 5 minutes. She also notes at times she is not able to walk greater than 50 feet due to pain in her lower extremities. Active range of motion of the right hip is to 90 degrees of flexion. The left hip has 80 degrees of flexion. Active range of motion of the right knee is from 0 degrees to 135 degrees. The left knee is 7 degrees to 125 degrees. The patient demonstrates the following strength measurements: Hip flexion left 4-/5, right 4/5; knee flexion bilaterally 4/5; knee extension left 4-/5, right 4/5; dorsiflexion bilaterally 4+/5. The patient rates her pain at 4/10 for total body pain. This is decreased compared to her initial evaluation. The patient was seen for six physical therapy visits prior to today's date. We are seeking additional approval from her insurance company for physical therapy. Thank you for the opportunity to participate in your patient's plan of care. Dictated By: Robbin HILTON Signed By: AKI RAMOS 11/21/17 1719 << Signature on File>> Reported By: AKI RAMOS Signed By: AKI RAMOS Tests performed at: [address] [address] THERAPY NT Observed: 11/17/2017 Status: COMPLETED Source: [place] 3:18 PM [facility] REPOSITORY HNO ID: [id number] Author: Provider [facility] Service: (none) Author Type: Physician Type: Therapy (PT/OT/Speech/Resp) Filed: 06/29/2018 3:56 PM Note Text: [address] [address] PHYSICAL THERAPY REPORT Patient: RASHAWN ALMEIDA VINCE T Yariel [id number] [age] F Status: REG RCR PT Physical Therapy Progress Report Date:11/17/2017 Medicare Interval Period: to 11/17/2017 Dr. Nath, As you know we have been following the plan of care for your patient. As you may recall, you sent the patient to the [facility] with the diagnosis of left lower extremity weakness and osteoarthritis of multiple joints.. The patient's current status is as follows: Subjective Statements: The patient has been seen for a total of six physical therapy visits with her last visit being on November 11. Upon arrival the patient reports that she still feels weak throughout her entire body after a recent hospital stay due to bowel blockage. She notes overall that she is feeling much better in terms of her total body pain which is decreased to 4/10 versus the evaluation at 8/10. She would like to continue with physical therapy for strengthening at this time as the patient reports that she is unable to walk for long periods of time due to shortness of breath and weakness in her bilateral lower extremities. Objective Statements: Patient is currently demonstrating manual muscle testing scores of her bilateral lower extremities as follows hip flexion left 4-/5, right 4/5, knee flexion bilaterally 4/5, knee extension left 4-/5 right 4/5, dorsiflexion bilaterally 4+/5. She ambulates without an assistive device but does display decreased step length bilaterally with increased trunk sway the left during left stance. She demonstrates active range of motion of her bilateral upper and lower extremities within normal limits whereas at the initial evaluation she was unable to perform any active range of motion for long periods of time due to severe stomach pain which lead to the patient being hospitalized due to bowel blockage. She is progressing towards her goals at this time which included: 1. The patient will have 5/5 manual muscle testing strength of bilateral lower extremities. 2. The patient will be able to ambulate with normalized gait pattern. 3. The patient will will be able to ambulate stairs without an increase in symptoms and a reciprocal pattern with one handrail assistance. 4. The patient will abolishment of bilateral upper and lower body symptoms. Functional Testing: The patient's current functional limitation is 40%, while their initial functional limitation was 80%. This is based on the visual analogue pain scale per Medicare functional reporting requirements. We will continue with her plan of care at this time. If I can provide you with any further assistance, please do not hesitate to contact me. Thank you for the opportunity to participate in your patient's plan of care. Sincerely, Dictated By: JORGE LARA DPT Signed By: JORGE LARA DPT 11/17/17 1519 << Signature on File>> Reported By: JORGE LARA DPT Signed By: JORGE LARA DPT Tests performed at: [address] [address] PHYSICAL THERAPY Observed: 11/17/2017 Status: F Source: [place] REPORT 3:[address] [facility] [address] [address] PHYSICAL THERAPY REPORT Patient: RASHAWN ALMEIDA VINCE T M.D. [id number] F Status: REG RCR PT Physical Therapy Progress Report Date:11/17/2017 Medicare Interval Period: to 11/17/2017 Dr. Nath, As you know we have been following the plan of care for your patient. As you may recall, you sent the patient to the [facility] with the diagnosis of left lower extremity weakness and osteoarthritis of multiple joints.. The patient's current status is as follows: Subjective Statements: The patient has been seen for a total of six physical therapy visits with her last visit being on November 11. Upon arrival the patient reports that she still feels weak throughout her entire body after a recent hospital stay due to bowel blockage. She notes overall that she is feeling much better in terms of her total body pain which is decreased to 4/10 versus the evaluation at 8/10. She would like to continue with physical therapy for strengthening at this time as the patient reports that she is unable to walk for long periods of time due to shortness of breath and weakness in her bilateral lower extremities. Objective Statements: Patient is currently demonstrating manual muscle testing scores of her bilateral lower extremities as follows hip flexion left 4-/5, right 4/5, knee flexion bilaterally 4/5, knee extension left 4-/5 right 4/5, dorsiflexion bilaterally 4+/5. She ambulates without an assistive device but does display decreased step length bilaterally with increased trunk sway the left during left stance. She demonstrates active range of motion of her bilateral upper and lower extremities within normal limits whereas at the initial evaluation she was unable to perform any active range of motion for long periods of time due to severe stomach pain which lead to the patient being hospitalized due to bowel blockage. She is progressing towards her goals at this time which included: 1. The patient will have 5/5 manual muscle testing strength of bilateral lower extremities. 2. The patient will be able to ambulate with normalized gait pattern. 3. The patient will will be able to ambulate stairs without an increase in symptoms and a reciprocal pattern with one handrail assistance. 4. The patient will abolishment of bilateral upper and lower body symptoms. Functional Testing: The patient's current functional limitation is 40%, while their initial functional limitation was 80%. This is based on the visual analogue pain scale per Medicare functional reporting requirements. We will continue with her plan of care at this time. If I can provide you with any further assistance, please do not hesitate to contact me. Thank you for the opportunity to participate in your patient's plan of care. Sincerely, Dictated By: JORGE LARA DPT Signed By: JORGE LARA DPT 11/17/17 1519 << Signature on File>> Reported By: JORGE LARA DPT Signed By: JORGE LARA DPT Tests performed at: [address] [address] ED PROV NOTE Observed: 11/12/2017 Status: COMPLETED Source: [place] 12:16 PM [facility] REPOSITORY HNO ID: [id number] Author: Lexus Thacker Service: (none) Author Type: Nurse Practitioner Type: ED Provider Notes Filed: 06/29/2018 3:47 PM Note Text: [place] [address] HEALTH INFORMATION MANAGEMENT EMERGENCY DEPARTMENT REPORT Patient: RASHAWN ALMEIDA GINA M NP-C (ED) as dictated by DAREN NGUYEN [id number] F Status: DEP ER ED Date of Service: 11/11/17 CHIEF COMPLAINT Nosebleed with bleeding controlled. HISTORY OF PRESENT ILLNESS The patient states that she was carrying a TV by herself. She said it was an old TV. She said it was big and heavy. She was carrying it out of her bedroom into the living room. She was trying to help her cousin get set up with some living arrangements. So she said that she carried this TV and then bent down to set the TV down. When she was leaning forward she felt her nose starting to bleed. At that point got a towel blew her nose and nose continued to bleed and then she blew her nose again and she said that the towel was soaked with blood. It scared her because she had a previous nosebleed over the summer that brought her to the emergency department. So this nosebleed scared her. She called and the EMT encouraged her to come in for evaluation so that is why she came in. The nosebleed started approximately 45 minutes prior to arrival. Bleeding stopped on its own before she got here and she has had no bleeding since she has been here. ALLERGIES She has no known drug allergies. SOCIAL HISTORY She is . She does not drink or smoke. PAST SURGICAL HISTORY Hysterectomy, cholecystectomy, bilateral tubal ligation, right arm rotator cuff, cataracts, carpal tunnel, left knee surgery, and hernia repair. PAST MEDICAL HISTORY Asthma, hypertension, thyroid cancer so they actually removed her thyroid so now she has hypothyroidism, history of right leg DVT and right axillary DVT, history of Florian's palsy. She is osteoarthritis and degenerative joint disease. MEDICATIONS She takes Norvasc, Prevacid, Synthroid, Lexapro, Neurontin, Percocet, and Xanax. She does follow with Dr. Tonny Epps for primary care. REVIEW OF SYSTEMS HEENT: She denies any headache, dizziness, lightheadedness. She denies any itchy watery eyes. She did state that her right eye a couple days ago felt like itchy and burning and she felt like her ears were itchy a couple days ago not today. Nose: She denies any runny nose or stuffy nose but she did have a nosebleed prior to arrival. She could not tell me which side of her nose was bleeding. She just said that she just knew her nose was bleeding. Respiratory: She denies any cough or shortness of breath. Cardiovascular: She denies any chest pain. No swelling to her extremities. GI: She denies any nausea, vomiting, diarrhea, abdominal pain. PHYSICAL EXAMINATION Blood pressure was 168/69, temperature is 98, pulse is 75, respiratory rate is 16, SPO2 of 96% on room air. General appearance she is alert and she is oriented. She does not appear to be in any significant acute distress. HEENT her head is atraumatic and normocephalic. Eyes are without redness or drainage. Her right eye is a little bit more watery than her left eye. Ears: Her tympanic membranes are visualized. The left ear she states that the left ear tympanic membrane is retracted. She said the ENT doctor told her that. I could visualize the tympanic membrane. It is dull, flat, billingsley but I could not see the cone of light. Her right tympanic membrane was clear. It was dull, flat, billingsley in nature too but not quite as dull as the left. Nose: She barely let me inspect her nose. So I was able to just use the otoscope just to look up her nose. There is no active bleeding. No dried blood to the nares. I could not see anything in the nares, but she would not let me use the nasal forceps to open up her nose and look up into her nose. She pulled her head back. She grabbed my hand. She said that she had high anxiety and she just could not tolerate me looking up her nose. Mouth mucous membranes are pink and moist. She does not have any blood draining down the back of her throat. Cardiovascular: Her heart rate is regular rate and rhythm. No murmurs were appreciated. Respiratory: Her lungs are clear. She does have expiratory wheezes in all lung germain very fine expiratory wheeze in all lung germain, but she does have a history of asthma. EMERGENCY DEPARTMENT COURSE The emergency department course did consist of physical examination. No treatment was done on her today. Since the bleeding stopped on its own prior to arrival and she has not had active bleeding here I am going to discharge her home with education on nosebleeds. She was advised if the nose starts bleeding again she is to hold pressure at the bridge of the nose and lean her head forward for 20 minutes. She was advised not to blow her nose. If she was unable to get the bleeding to stop that she would need to follow up back in the emergency department again. Otherwise she is stable and she is fine to go home. IMPRESSION Nosebleed resolved prior to arrival. <Electronically signed by LEXUS Lewis (ED) DAREN JOE> 11/25/17 1845 LEXUS JOE (ED) cc: TONNY EPPS M.D.; LEXUS JOE (ED) << Signature on File>> Reported By: LEXUS JOE (ED) Signed By: LEXUS JOE (ED) Tests performed at: [address] [address] ED REPORT Observed: 11/12/2017 Status: F Source: [facility] 12:16 PM [place] [address] HEALTH INFORMATION MANAGEMENT EMERGENCY DEPARTMENT REPORT Patient: RASHAWN ALMEIDA LEXUS JOE (ED) as dictated by DAREN NGUYEN [id number] F Status: DEP ER ED Date of Service: 11/11/17 CHIEF COMPLAINT Nosebleed with bleeding controlled. HISTORY OF PRESENT ILLNESS The patient states that she was carrying a TV by herself. She said it was an old TV. She said it was big and heavy. She was carrying it out of her bedroom into the living room. She was trying to help her cousin get set up with some living arrangements. So she said that she carried this TV and then bent down to set the TV down. When she was leaning forward she felt her nose starting to bleed. At that point got a towel blew her nose and nose continued to bleed and then she blew her nose again and she said that the towel was soaked with blood. It scared her because she had a previous nosebleed over the summer that brought her to the emergency department. So this nosebleed scared her. She called and the EMT encouraged her to come in for evaluation so that is why she came in. The nosebleed started approximately 45 minutes prior to arrival. Bleeding stopped on its own before she got here and she has had no bleeding since she has been here. ALLERGIES She has no known drug allergies. SOCIAL HISTORY She is . She does not drink or smoke. PAST SURGICAL HISTORY Hysterectomy, cholecystectomy, bilateral tubal ligation, right arm rotator cuff, cataracts, carpal tunnel, left knee surgery, and hernia repair. PAST MEDICAL HISTORY Asthma, hypertension, thyroid cancer so they actually removed her thyroid so now she has hypothyroidism, history of right leg DVT and right axillary DVT, history of Florian's palsy. She is osteoarthritis and degenerative joint disease. MEDICATIONS She takes Norvasc, Prevacid, Synthroid, Lexapro, Neurontin, Percocet, and Xanax. She does follow with Dr. Tonny Epps for primary care. REVIEW OF SYSTEMS HEENT: She denies any headache, dizziness, lightheadedness. She denies any itchy watery eyes. She did state that her right eye a couple days ago felt like itchy and burning and she felt like her ears were itchy a couple days ago not today. Nose: She denies any runny nose or stuffy nose but she did have a nosebleed prior to arrival. She could not tell me which side of her nose was bleeding. She just said that she just knew her nose was bleeding. Respiratory: She denies any cough or shortness of breath. Cardiovascular: She denies any chest pain. No swelling to her extremities. GI: She denies any nausea, vomiting, diarrhea, abdominal pain. PHYSICAL EXAMINATION Blood pressure was 168/69, temperature is 98, pulse is 75, respiratory rate is 16, SPO2 of 96% on room air. General appearance she is alert and she is oriented. She does not appear to be in any significant acute distress. HEENT her head is atraumatic and normocephalic. Eyes are without redness or drainage. Her right eye is a little bit more watery than her left eye. Ears: Her tympanic membranes are visualized. The left ear she states that the left ear tympanic membrane is retracted. She said the ENT doctor told her that. I could visualize the tympanic membrane. It is dull, flat, billingsley but I could not see the cone of light. Her right tympanic membrane was clear. It was dull, flat, billingsley in nature too but not quite as dull as the left. Nose: She barely let me inspect her nose. So I was able to just use the otoscope just to look up her nose. There is no active bleeding. No dried blood to the nares. I could not see anything in the nares, but she would not let me use the nasal forceps to open up her nose and look up into her nose. She pulled her head back. She grabbed my hand. She said that she had high anxiety and she just could not tolerate me looking up her nose. Mouth mucous membranes are pink and moist. She does not have any blood draining down the back of her throat. Cardiovascular: Her heart rate is regular rate and rhythm. No murmurs were appreciated. Respiratory: Her lungs are clear. She does have expiratory wheezes in all lung germain very fine expiratory wheeze in all lung germain, but she does have a history of asthma. EMERGENCY DEPARTMENT COURSE The emergency department course did consist of physical examination. No treatment was done on her today. Since the bleeding stopped on its own prior to arrival and she has not had active bleeding here I am going to discharge her home with education on nosebleeds. She was advised if the nose starts bleeding again she is to hold pressure at the bridge of the nose and lean her head forward for 20 minutes. She was advised not to blow her nose. If she was unable to get the bleeding to stop that she would need to follow up back in the emergency department again. Otherwise she is stable and she is fine to go home. IMPRESSION Nosebleed resolved prior to arrival. <Electronically signed by LEXUS Lewis (ED) DAREN JOE> 11/25/17 1845 LEXUS JOE (ED) cc: TONNY EPPS M.D.; LEXUS JOE (ED) << Signature on File>> Reported By: LEXUS JOEC (ED) Signed By: LEXUS JOEC (ED) Tests performed at: [address] [address] THERAPY NT Observed: 10/31/2017 Status: COMPLETED Source: [place] 12:19 PM CLINIC MAIN [facility]AMP[facility] REPOSITORY HNO ID: [id number] Author: Provider [facility] Service: (none) Author Type: Physician Type: Therapy (PT/OT/Speech/Resp) Filed: 06/29/2018 3:26 PM Note Text: [facility] [address] [address] OCCUPATIONAL THERAPY Patient: ALMEIDARASHAWN VINCE T M.D. [id number] F Status: DIS RCR PT OCCUPATIONAL THERAPY INITIAL EVALUATION DATE: 10/28/2017 MEDICAL DIAGNOSES: 1. Primary osteoarthritis involving multiple joints, M15.0. 2. Age-related osteoporosis without current pathological fracture, M81.0. 3. Low vitamin D level, E55.9. THERAPY DIAGNOSIS: Pain. ONSET: August 2017 HISTORY The patient is well known to this clinic. I believe she was last seen in OT in July of last year due to left wrist pain. She states that her wrist is feeling much better. She is still complaining of the left ring finger locking. However, she states that it does this very infrequently. Her chief complaint today is that her left hand cramps with certain activities such as writing and playing bingo. She essentially states that her left hand does not hurt but only when it cramps. She is to see Dr. Louis possibly on November 01. EXAMINATION The patient presents to occupational therapy with a chief complaint of cramping in her left hand. Range of motion for the wrist and hand is within normal limits. She is able to fully open and close her left hand. She has opposition to all digits. Strength is very good at this time. Right cost estimator is 43 pounds, left cost estimator is 46 pounds. She is left-hand dominant. Lateral pinch on right side 13 pounds, left side 11 pounds. 3-point pinch on right side 10 pounds, left side 7 pounds. 2-point pinch on right side 9 pounds, left side 7 pounds. She is also complaining of some slight numbness in the tips of her fingers. She does state that she may have carpal tunnel. There does not appear to be any swelling in the hand or wrist. She also states that she is able to play her guitar. She was having difficulty with this when she was seen at the end of last year. Pain obviously has subsided enough to where the patient can play her guitar on a daily basis. Fine motor coordination is intact. She was able to complete the nine-hole PEG test with the left hand in 30 seconds. The patient was asked to write for 5 minutes. She was able to do so with minimal complaints. Performance deficits include pain. Pain is affecting her with certain activities, mostly leisure activities. The patient does like to write songs and she does play bingo on a consistent basis. Decision making: after analysis of her occupational profile, data from the exam, treatment options, comorbidities, and modifications, overall complexity of the evaluation is in the low category. After discussion with the patient, it was decided not to pursue occupational therapy at this time. Suggestions were made in regards to the cramping. Heat and massage were suggested. The patient has already been shown wrist and hand strengthening exercises when she was seen in this office just a few short months ago. No OT is recommended at this time. Thank you for this referral. Dictated By: NILS RENE/Lyle Signed : ODESSA PRITCHETT/Lyle 10/31/17 1220 << Signature on File>> Reported By: ODESSA PRITCHETT/Lyle Signed By: ODESSA PRITCHETT/Lyle Tests performed at: [place] [address] OCCUPATIONAL THERAPY Observed: 10/31/2017 Status: F Source: [place] 12:19 PM [facility] [place] [address] OCCUPATIONAL THERAPY Patient: RASHAWN ALMEIDA VINCE T M.D. [id number] [age] F Status: DIS RCR PT OCCUPATIONAL THERAPY INITIAL EVALUATION DATE: 10/28/2017 MEDICAL DIAGNOSES: 1. Primary osteoarthritis involving multiple joints, M15.0. 2. Age-related osteoporosis without current pathological fracture, M81.0. 3. Low vitamin D level, E55.9. THERAPY DIAGNOSIS: Pain. ONSET: August 2017 HISTORY The patient is well known to this clinic. I believe she was last seen in OT in July of last year due to left wrist pain. She states that her wrist is feeling much better. She is still complaining of the left ring finger locking. However, she states that it does this very infrequently. Her chief complaint today is that her left hand cramps with certain activities such as writing and playing bingo. She essentially states that her left hand does not hurt but only when it cramps. She is to see Dr. Louis possibly on November 01. EXAMINATION The patient presents to occupational therapy with a chief complaint of cramping in her left hand. Range of motion for the wrist and hand is within normal limits. She is able to fully open and close her left hand. She has opposition to all digits. Strength is very good at this time. Right cost estimator is 43 pounds, left cost estimator is 46 pounds. She is left-hand dominant. Lateral pinch on right side 13 pounds, left side 11 pounds. 3-point pinch on right side 10 pounds, left side 7 pounds. 2-point pinch on right side 9 pounds, left side 7 pounds. She is also complaining of some slight numbness in the tips of her fingers. She does state that she may have carpal tunnel. There does not appear to be any swelling in the hand or wrist. She also states that she is able to play her guitar. She was having difficulty with this when she was seen at the end of last year. Pain obviously has subsided enough to where the patient can play her guitar on a daily basis. Fine motor coordination is intact. She was able to complete the nine- hole PEG test with the left hand in 30 seconds. The patient was asked to write for 5 minutes. She was able to do so with minimal complaints. Performance deficits include pain. Pain is affecting her with certain activities, mostly leisure activities. The patient does like to write songs and she does play bingo on a consistent basis. Decision making: after analysis of her occupational profile, data from the exam, treatment options, comorbidities, and modifications, overall complexity of the evaluation is in the low category. After discussion with the patient, it was decided not to pursue occupational therapy at this time. Suggestions were made in regards to the cramping. Heat and massage were suggested. The patient has already been shown wrist and hand strengthening exercises when she was seen in this office just a few short months ago. No OT is recommended at this time. Thank you for this referral. Dictated By: ODESSA PRITCHETT OTR/Lyle Signed : ODESSA PRITCHETT/Lyle 10/31/17 1220 << Signature on File>> Reported By: ODESSA PRITCHETT/Lyle Signed By: ODESSA PRITCHETT/Lyle Tests performed at: [address] [address] CNDS Observed: 10/27/2017 Status: COMPLETED Source: [place] 12:32 PM [facility] REPOSITORY HNO ID: [id number] Author: Provider [facility] Service: (none) Author Type: Physician Type: Discharge Summaries Filed: 06/29/2018 3:20 PM Note Text: [place] [address] HEALTH INFORMATION MANAGEMENT DISCHARGE SUMMARY Patient: GRAYSONRASHAWNLUIS BASILIO M.D. [id number] [age] F Status: ADM [facility] Date of Admission: 10/24/17 Date of Discharge: Discharge Summary Discharge Diagnosis: 1. Partial small bowel obstruction 2. Hypothyroidism 3. Asthma 4. Hypertension 5. GERD (gastroesophageal reflux disease) HPI: This is a 62 year-old female with history of chronic pain, hypertension, gastroesophageal reflux disease, hiatal hernia who has been having increasing epigastric pressure and pain. On the day of admission she vomited and the pain was severe so she came to the emergency room. She had a normal KUB and normal workup. They felt that this was just her chronic reflux for which she has had several ER visits for and sent her home. The patient then proceeded to vomit throughout most of the day, was unable to take any p.o. Vomitus was nonbloody; however, she was having dry heaves as well so she came back to the emergency room. CAT scan was done this time, which showed a possible partial small bowel obstruction so she was admitted to the hospital. Hospital Course: admitted with abd pain/vomiting - secondary to ileus from constipation from narcotics ct abd/pelvis from er with possible sbo admitted for further eval surgery consulted for assist symptoms resolved with bm constipation secondary to narcotics add miralax - colace follow up with pcp in 1 week heart rrr lungs cta bilat ext no edema abd soft nt nd discharge summary/instructions 40 min Discharge Condition: Stable Disposition: Home <Electronically signed by LUIS CERVANTES M.D.> 10/27/17 1242 LUIS CERVANTES M.D. cc: << Signature on File>> Reported By: LUIS CERVANTES M.D. Signed By: LUIS CERVANTES M.D. Tests performed at: [address] [address] CONSULT Observed: 10/26/2017 Status: COMPLETED Source: [place] 12:41 PM [facility] REPOSITORY HNO ID: [id number] Author: Yinka Garcia III Service: (none) Author Type: Physician Type: Consults Filed: 06/29/2018 3:18 PM Note Text: [place] [address] HEALTH INFORMATION MANAGEMENT CONSULTATION Patient: RASHAWN ALMEIDA YINKA GARCIA M.D. [id number] [age] F Status: ADM [facility] DATE OF CONSULTATION 10/26/2017 CHIEF COMPLAINT Small bowel obstruction. HISTORY OF PRESENT ILLNESS Rashawn is a 62-year-old woman with a history of chronic pain who is on narcotics daily. She does take MiraLax daily to help her use the bathroom. She had not been taking her MiraLax due to a revival yazdanism meeting and thinks that she was bound up as a result. She came to the hospital on the with abdominal pain and vomiting. She did not require nasogastric tube placement but with bowel adjuncts and rest she began to have flatus and then copious amounts of stool. At this time she feels vastly improved and is not having abdominal pain. She is tolerating clear liquids and wants to eat. General surgery was consulted due to an abdominal radiograph concerning for small bowel obstruction. As soon as I entered the room the patient was asking for food and wanting to go home. She is convinced that she is normal at this time and that her problem has resolved. PHYSICAL EXAMINATION The patient is afebrile. Her vital signs are normal with the exception of mild hypertension. Her abdomen is soft. There is no distension, although she is obese with a BMI of 38. There is no tenderness to deep palpation. LABORATORY DATA White blood cell count 6.3, hemoglobin 11.6, platelets 167,000, creatinine 0.78, calcium 8.1. IMAGING I reviewed her CT scan from admission as well as the abdominal radiographs. The patient seems to have had mild obstruction with some free fluid. A radiograph shows mild dilatation of small bowel which could be consistent with persistent obstruction, but given the patient's clinical picture I am not concerned. She has a large amount of gas within her colon. IMPRESSION REPORT/PLAN 1. Small bowel obstruction, resolved. 2. Morbid obesity. 3. Chronic constipation secondary to narcotic use. Rashawn is doing very well clinically. I have ordered a regular diet for her. If she tolerates this she could be discharged tonight or tomorrow. Given the absence of pain I do not have a concern about persistent obstruction at this time. I would not order any additional films unless she has a significant change in clinical status. Thank you for the consultation and I will sign off at this time as the patient's obstruction has resolved; however, if she has a change in clinical status, please do not hesitate to give me a call and I will reevaluate. <Electronically signed by YINKA GARCIA M.D.> 10/27/17 1130 YINKA GARCIA M.D. cc: YINKA GARCIA M.D. << Signature on File>> Reported By: YINKA GARCIA M.D. Signed By: YINKA GARCIA M.D. Tests performed at: [address] [address] CONSULTATION Observed: 10/26/2017 Status: F Source: [place] 12:41 PM [facility] [place] [place] [address] HEALTH INFORMATION MANAGEMENT CONSULTATION Patient: RASHAWN ALMEIDA YINKA GARCIA M.D. [id number] [age] F Status: ADM [facility] 3912-B DATE OF CONSULTATION 10/26/2017 CHIEF COMPLAINT Small bowel obstruction. HISTORY OF PRESENT ILLNESS Rashawn is a 62-year-old woman with a history of chronic pain who is on narcotics daily. She does take MiraLax daily to help her use the bathroom. She had not been taking her MiraLax due to a revival yazdanism meeting and thinks that she was bound up as a result. She came to the hospital on the with abdominal pain and vomiting. She did not require nasogastric tube placement but with bowel adjuncts and rest she began to have flatus and then copious amounts of stool. At this time she feels vastly improved and is not having abdominal pain. She is tolerating clear liquids and wants to eat. General surgery was consulted due to an abdominal radiograph concerning for small bowel obstruction. As soon as I entered the room the patient was asking for food and wanting to go home. She is convinced that she is normal at this time and that her problem has resolved. PHYSICAL EXAMINATION The patient is afebrile. Her vital signs are normal with the exception of mild hypertension. Her abdomen is soft. There is no distension, although she is obese with a BMI of 38. There is no tenderness to deep palpation. LABORATORY DATA White blood cell count 6.3, hemoglobin 11.6, platelets 167,000, creatinine 0.78, calcium 8.1. IMAGING I reviewed her CT scan from admission as well as the abdominal radiographs. The patient seems to have had mild obstruction with some free fluid. A radiograph shows mild dilatation of small bowel which could be consistent with persistent obstruction, but given the patient's clinical picture I am not concerned. She has a large amount of gas within her colon. IMPRESSION REPORT/PLAN 1. Small bowel obstruction, resolved. 2. Morbid obesity. 3. Chronic constipation secondary to narcotic use. Rashawn is doing very well clinically. I have ordered a regular diet for her. If she tolerates this she could be discharged tonight or tomorrow. Given the absence of pain I do not have a concern about persistent obstruction at this time. I would not order any additional films unless she has a significant change in clinical status. Thank you for the consultation and I will sign off at this time as the patient's obstruction has resolved; however, if she has a change in clinical status, please do not hesitate to give me a call and I will reevaluate. <Electronically signed by YINKA GARCIA M.D.> 10/27/17 1130 YINKA GARCIA M.D. cc: YINKA GARCIA M.D. << Signature on File>> Reported By: YINKA GARCIA M.D. Signed By: YINKA GARCIA M.D. Tests performed at: [address] [address] PROGRESS Observed: 10/26/2017 Status: COMPLETED Source: [place] 12:23 PM [facility] REPOSITORY HNO ID: [id number] Author: Yinka Garcia III Service: (none) Author Type: Physician Type: Progress Notes Filed: 06/29/2018 3:18 PM Note Text: [place] [address] PROGESS NOTES - GENERAL SURGERY Patient: RASHAWN ALMEIDA [id number] [age] F Status: ADM [facility] 3912-B Report Date AND Time: 10/26/17 1223 Admitting Physician : MASOUD FINLEY M.D. Consulting Physician: IYNKA GARCIA M.D. Subjective Subjective Comments: Consultation dictated. Plan Plan SBO is resolved. OK to advance diet (I ordered a regular diet for lunch). If she tolerates this, she could discharge tonight or tomorrow. No need for additional imaging unless her clinical status changes. <Electronically signed by YINKA GARCIA M.D.> 10/26/17 1224 YINKA GARCIA M.D. cc: << Signature on File>> Reported By: YINKA GARCIA M.D. Signed By: YINKA GARCIA M.D. Tests performed at: [address] [address] PROGRESS Observed: 10/26/2017 Status: COMPLETED Source: [place] 8:41 AM [facility] REPOSITORY HNO ID: [id number] Author: David Reynaga Service: Hospital Medicine Author Type: Physician Type: Progress Notes Filed: 06/29/2018 3:18 PM Note Text: [place] [address] PROGRESS NOTES Patient: TALA ALMEIDALYN DAVID REYNGAA M.D. [id number] [age] F Status: ADM [facility] 3912-B Report Date AND Time: 10/26/17 0841 Subjective * Please Note: feels better moving bowels passing gas feels hungry ileus/sbo abdominal discomfort continue ivf/npo acute abdominal series in am surgical eval if does not improve. 10/26/17 feeling hungry. no abdmonial pain multiple bowel movements last night awaiting acute abdominal series results will advance diet based on abdominal xrays ileus/psbo Objective Focused Exam Performed General Appearance Alert, Oriented X3, Cooperative, No Acute Distress HEENT Atraumatic, PERRLA, EOMI, Mucous Membr. moist/pink, WNL Lungs Clear to Auscultation, Normal Air Movement Neck Supple, No JVD Cardiovascular NSR, Normal S1, S2 Abdomen Normal Bowel Sounds, Soft (mild discomfort to palpation), No Tenderness, Obese Extremities No Cyanosis, No Edema (trace edema) Skin No Significant Lesion Neurological Normal Speech, Intact/non-focal Psych/Mental Status Normal Affect, Normal Mood Reviewed - Daily Reviewed Information Medications, Nurse Notes, Labs, Vitals Labs/Vitals/Meds/Orders Hematology Range/Units 10/26 0452 Hematology WBC 4.5 - 10.0 x10(3) 6.3 RBC 3.30 - 5.00 x10(6) 3.73 Hgb 12.0 - 16.0 g/dL 11.6 L Hct 36.0 - 48.0 % 33.5 L MCV 80.0 - 99.0 fl 89.7 MCH 28.5 - 32.9 pg 31.2 MCHC 33.0 - 36.0 g/dL 34.8 RDW 12.5 - 15.7 % 15.0 Plt Count 150 - 450 X10(3) 167 MPV 7.5 - 9.5 fl 8.6 Neut % (Auto) 45.0 - 73.0 % 60.1 Lymph % (Auto) 16.0 - 48.0 % 28.9 Merced % (Auto) 4.3 - 11.2 % 6.7 Eos % (Auto) 0.5 - 4.9 % 3.1 Baso % (Auto) 0.0 - 1.0 % 1.2 H Neut # (Auto) 1.40 - 6.50 x10(3) 3.80 Lymph # (Auto) 1.00 - 3.50 x10(3) 1.80 Merced # (Auto) 0.30 - 0.80 x10(3) 0.40 Eos # (Auto) 0.00 - 0.54 x10(3) 0.20 Baso # (Auto) 0.00 - 0.10 x10(3) 0.10 Chemistry Range/Units 10/26 0452 Chemistry Sodium 135 - 145 mmol/L 138 Potassium 3.5 - 5.0 mmol/L 3.8 Chloride 98 - 107 mmol/L 104 Carbon Dioxide 22 - 29 mmol/L 23 Anion Gap 15 - 22 mmol/L 14.8 L BUN 8 - 23 mg/dL 8 Creatinine 0.50 - 0.90 mg/dL 0.78 Est GFR ( Amer) > 60 ml/min/1.73m2 Est GFR (Non-Af Amer) > 60 ml/Min/1.73m2 Glucose 82 - 115 mg/dL 97 Calcium 8.8 - 10.2 mg/dL 8.1 L Vital Signs Date Time Temp Pulse Resp B/P B/P Pulse O2 O2 Flow FiO2 Mean Ox Delivery Rate 10/26 0730 97.6 61 12 138/77 92 10/26 0405 98.6 60 20 131/82 96 10/26 0013 Nasal 1.5 Cannula 10/255 98.4 59 20 116/76 93 10/25 2010 98.1 64 20 134/84 95 10/25 1634 98.2 60 20 145/71 91 10/25 1520 98.2 60 20 145/71 91 Nasal 2 Cannula 10/25 1223 98.4 61 20 182/95 98 10/25 1211 98.3 Intake AND Output 10/26 0700 10/25 2300 10/25 1500 Intake Total 650 1423 Output Total 800 200 250 Balance -150 1223 -250 Current Medications Sig/Sonia Start time Last Medication Dose Route Stop Time Status Admin Bisacodyl 10 MG NOW STA 10/25 2048 DC 10/25 CT 10/25 Pantoprazole Sodium 40 MG BID 10/25 0900 AC 10/26 Sodium Chloride 10 ML IV 0806 Dextrose/Sodium 1,000 ML .Q10H 10/25 0045 AC 10/26 Chloride IV 0628 Hydromorphone HCl 0.5 MG Q4-6HPRN PRN 10/25 0045 AC 10/26 IV 0631 Promethazine HCl 12.5 MG Q4HPRN PRN 10/25 0045 AC IV Orders Procedure Date/time Status CLEAR LIQUID DIET 10/26 B Active ACUTE ABDOMEN W/PA CHEST 10/26 0400 Active COMPLETE BLOOD COUNT 10/26 0400 Complete BASIC METABOLIC PANEL 10/26 0400 Complete Please address VTE Prophylaxis 10/25 2246 Active Problems Problems Current Problems 1. Abdominal pain 2. Ileus 3. Hypothyroidism 4. Hypertension 5. Asthma Plan Plans Additional Comments f/u acute abdominal series <Electronically signed by DAVID REYNAGA M.D.> 10/26/17 1407 DAVID REYNAGA M.D. << Signature on File>> Reported By: DAVID REYNAGA M.D. Signed By: DAVID REYNAGA M.D. Tests performed at: [address] [address] CBC Collected: 10/26/2017 Status: F Source: [facility] 4:52 AM HOSPITAL REPOSITORY TYPE CODE TESTS RESULT OUT OF RANGE REFERENCE UNITS LAB L200.0100 4.5-10.0 x10(3) Normal WBC 6.3 LAB L200.0200 3.30-5.00 x10(6) Normal RBC 3.73 LAB L200.0210 12.0-16.0 g/dL Low HGB 11.6 LAB L200.0220 36.0-48.0 % Low HCT 33.5 LAB L200.0230 80.0-99.0 fl Normal MCV 89.7 LAB L200.0240 28.5-32.9 pg Normal MCH 31.2 LAB L200.0250 33.0-36.0 g/dL Normal MCHC 34.8 LAB L200.0260 12.5-15.7 % Normal RDW 15.0 LAB L200.0270 150-450 X10(3) Normal PLT 167 LAB L200.0290 7.5-9.5 fl Normal MPV 8.6 LAB L200.0300 45.0-73.0 % Normal NEUT% 60.1 LAB L200.0310 16.0-48.0 % Normal LYMPH% 28.9 LAB L200.0320 4.3-11.2 % Normal MONO% 6.7 LAB L200.0330 0.5-4.9 % Normal EOS% 3.1 LAB L200.0340 0.0-1.0 % High BASO% 1.2 LAB L200.0350 1.40-6.50 x10(3) Normal NEUT# 3.80 LAB L200.0360 1.00-3.50 x10(3) Normal LYMPH# 1.80 LAB L200.0370 0.30-0.80 x10(3) Normal MONO# 0.40 LAB L200.0380 0.00-0.54 x10(3) Normal EOS# 0.20 LAB L200.0390 0.00-0.10 x10(3) Normal BASO# 0.10 Performed By: #### L200.0010 #### [facility] [address] [place] [address] BMP Collected: 10/26/2017 Status: F Source: [facility] 4:52 AM HOSPITAL REPOSITORY TYPE CODE TESTS RESULT OUT OF RANGE REFERENCE UNITS LAB L100.0060 82-115 mg/dL GLUCOSE Normal 97 LAB L100.0110 8-23 mg/dL BUN Normal 8 LAB L100.0131 0.50-0.90 mg/dL Normal CREATININE 0.78 LAB L100.0140 8.8-10.2 mg/dL Low CALCIUM 8.1 LAB L100.0150 135-145 mmol/L SODIUM Normal 138 LAB L100.0160 3.5-5.0 mmol/L Normal POTASSIUM 3.8 LAB L100.0170 98-107 mmol/L CHLORIDE Normal 104 LAB L100.0180 22-29 mmol/L TCO2 Normal 23 LAB L100.0185 15-22 mmol/L Low ANION GAP 14.8 LAB L100.0274 eGFR Normal nonAFR Rohan > 60 ml/Min/1.73m 2 LAB L100.0275 eGFR if Normal AFR ROHAN > 60 ml/min/1.73m 2 Result Comment: eGFR >= 60 Indicates normal kidney function. * eGFR IS AN ESTIMATE * (AFR ROHAN = ) (non-AFR AM = NON-) MDRD calculation used in the eGFR should not be used to dose medications. For further limitations of the eGFR please refer to the Physician Website or the National Kidney Disease Education Program website (www.nkdep.nih.gov). Performed By: #### L100.0010 #### [facility] [address] [place] [address] ACUTE ABDOMEN W/PA Observed: 10/26/2017 Status: F Source: [facility] 4:00 AM [facility] [place] [place] REPOSITORY [address] [address] Name: RASHAWN ALMEIDA Phys: DAVID REYNAGA M.D. : [birth year] Age: 62 Sex: F Acct: [id number] Loc: [facility] Exam Date: 10/26/17 Status: ADM [facility] Radiology No.: [id number] Unit Number: [id number] Exam # Type/Exam [id number] RAD / ACUTE ABDOMEN W/PA CHEST Acute abdomen series 4 views including PA view the chest and upright view of the abdomen History: Small bowel obstruction. Abdominal pain. Comparison: 10/24/2017 The heart is normal in size and there is no vascular congestion present. Small midline areas of scarring are noted. No consolidation or pleural fluid seen. Colonic gas is normal. There is minimal small bowel air in the midportion of the abdomen with minimal dilatation. No free air is visible. No visceromegaly or soft tissue mass seen. Clips are noted in the right lower quadrant from previous surgery. There are degenerative changes noted in the spine and hips. Impression: Mildly distended midabdominal small bowel. This may be seen with local ileus or low grade mechanical obstruction. The findings do appear slightly more prominent than on the prior study. Professional interpretation provided by [facility], [place] on [id number]. Thank you for this referral. <<Signature on File>> Reported By: ELIZABETH MARTINEZ M.D. Signed In NovaPro By: ELIZABETH MARTINEZ M.D. << Signature on File>> Reported By: ELIZABETH MARTINEZ M.D. Signed By: ELIZABETH MARTINEZ M.D. Tests performed at: [address] [address] PROGRESS Observed: 10/25/2017 Status: COMPLETED Source: [place] 6:29 PM [facility] [place] REPOSITORY HNO ID: [id number] Author: David Reynaga Service: Hospital Medicine Author Type: Physician Type: Progress Notes Filed: 06/29/2018 3:17 PM Note Text: [place] [address] PROGRESS NOTES Patient: RASHAWN ALMEIDA PURAN M.D. [id number] [age] F Status: ADM [place] 3912-B Report Date AND Time: 10/25/171828 Subjective * Please Note: feels better moving bowels passing gas feels hungry ileus/sbo abdominal discomfort continue ivf/npo acute abdominal series in am surgical eval if does not improve. Objective Focused Exam Performed General Appearance Alert, Oriented X3, Cooperative HEENT Atraumatic, PERRLA, EOMI, Mucous Membr. moist/pink Lungs Diminished Neck Supple, No JVD Cardiovascular NSR, Tachycardia Abdomen Normal Bowel Sounds, Soft (mild discomfort to palpation), Obese Extremities Clubbing (trace edema) Skin No Significant Lesion Neurological Normal Speech, Intact/non-focal Psych/Mental Status Normal Mood Reviewed - Daily Reviewed Information Medications, Nurse Notes, Labs, Vitals, Allergies Labs/Vitals/Meds/Orders Hematology Range/Units 10/25 Hematology WBC 4.5 - 10.0 x10(3) 8.4 11.8 H RBC 3.30 - 5.00 x10(6) 4.36 5.13 H Hgb 12.0 - 16.0 g/dL 13.3 15.2 Hct 36.0 - 48.0 % 39.4 46.5 MCV 80.0 - 99.0 fl 90.5 90.7 MCH 28.5 - 32.9 pg 30.5 29.6 MCHC 33.0 - 36.0 g/dL 33.7 32.6 L RDW 12.5 - 15.7 % 15.4 15.2 Plt Count 150 - 450 X10(3) 202 216 MPV 7.5 - 9.5 fl 8.8 8.6 Neut % (Auto) 45.0 - 73.0 % 72.5 82.3 H Lymph % (Auto) 16.0 - 48.0 % 19.8 11.5 L [place] % (Auto) 4.3 - 11.2 % 6.3 5.1 Eos % (Auto) 0.5 - 4.9 % 0.9 0.6 Baso % (Auto) 0.0 - 1.0 % 0.5 0.5 Neut # (Auto) 1.40 - 6.50 x10(3) 6.10 9.70 H Lymph # (Auto) 1.00 - 3.50 x10(3) 1.70 1.40 Merced # (Auto) 0.30 - 0.80 x10(3) 0.50 0.60 Eos # (Auto) 0.00 - 0.54 x10(3) 0.10 0.10 Baso # (Auto) 0.00 - 0.10 x10(3) 0.00 0.10 Chemistry Range/Units 10/25 457 Chemistry Sodium 135 - 145 mmol/L 142 Potassium 3.5 - 5.0 mmol/L 4.6 Chloride 98 - 107 mmol/L 104 Carbon Dioxide 22 - 29 mmol/L 26 Anion Gap 15 - 22 mmol/L 16.6 BUN 8 - 23 mg/dL 12 Creatinine 0.50 - 0.90 mg/dL 0.84 Est GFR ( Amer) > 60 ml/min/1.73m2 Est GFR (Non-Af Amer) > 60 ml/Min/1.73m2 Glucose 82 - 115 mg/dL 98 Calcium 8.8 - 10.2 mg/dL 8.3 L Range/Units 10/24 2021 Chemistry Sodium 135 - 145 mmol/L 138 Potassium 3.5 - 5.0 mmol/L 4.4 Chloride 98 - 107 mmol/L 101 Carbon Dioxide 22 - 29 mmol/L 24 Anion Gap 15 - 22 mmol/L 17.4 BUN 8 - 23 mg/dL 14 Creatinine 0.50 - 0.90 mg/dL 0.88 Est GFR ( Amer) > 60 ml/min/1.73m2 Est GFR (Non-Af Amer) > 60 ml/Min/1.73m2 Glucose 82 - 115 mg/dL 118 H Calcium 8.8 - 10.2 mg/dL 9.2 Total Bilirubin 0.2 - 1.2 mg/dL 0.7 Direct Bilirubin 0.0 - 0.3 mg/dL 0.2 AST 5 - 32 U/L 51 H ALT 5 - 33 U/L 87 H Alkaline Phosphatase 35 - 105 U/L 164 H Total Protein 6.4 - 8.3 g/dL 7.6 Albumin 3.5 - 5.2 g/dL 4.0 Globulin 1.5 - 4.5 g/dL 3.6 Albumin/Globulin Ratio 1.1 - 2.5 1.11 Amylase 28 - 100 U/L 43 Lipase 13 - 60 U/L 15 Vital Signs Date Time Temp Pulse Resp B/P B/P Pulse O2 O2 Flow FiO2 Mean Ox Delivery Rate 10/25 1634 98.2 60 20 145/71 91 10/25 1520 98.2 60 20 91 Nasal 2 Cannula 10/25 1223 98.4 61 20 182/95 98 10/25 1211 98.3 10/25 0800 98.3 60 12 114/68 95 10/25 0739 98.3 60 12 114/68 95 10/25 0505 98.0 55 16 95 10/25 0400 129/82 0226 2324 99.0 72 20 141/85 97 Nasal 2 Cannula 10/24 192 97.5 73 18 173/93 95 10/24 191 97.5 73 18 173/93 95 Intake AND Output 10/25 0700 10/24 2300 10/24 1500 Intake Total 354 Output Total 350 Balance 4 Current Medications Sig/Sonia Start time Last Medication Dose Route Stop Time Status Admin Pantoprazole Sodium 40 MG BID 10/25 0900 AC 10/25 Sodium Chloride 10 ML IV 0952 Dextrose/Sodium 1,000 ML .Q10H 10/25 0045 AC 10/25 Chloride IV 1220 Hydromorphone HCl 0.5 MG Q4-6HPRN PRN 10/25 0045 AC 10/25 IV 1736 Promethazine HCl 12.5 MG Q4HPRN PRN 10/25 44 AC IV Hydromorphone HCl 1 MG NOW STA 10/24 2218 DC 10/24 IV 10/24 Morphine Sulfate 2 MG NOW STA 10/24 2026 DC 10/24 IV 10/24 Promethazine HCl 12.5 MG NOW STA 10/24 2026 DC 10/24 IV 10/24 Sodium Chloride 500 ML .Q31M 10/24 2014 DC 10/24 IV 10/24 Orders Procedure Date/time Status CLEAR LIQUID DIET 10/26 B Active ACUTE ABDOMEN W/PA CHEST 10/26 0400 Active COMPLETE BLOOD COUNT 10/26 0400 Active BASIC METABOLIC PANEL 10/26 0400 Active NOTHING BY MOUTH 10/25 B Active COMPLETE BLOOD COUNT 10/25 0400 Complete BASIC METABOLIC PANEL 10/25 0400 Complete VS-Vitals per nursing protocol 10/25 0043 Active Notify/Chart - Atraumatic Fall 10/25 0043 Active zVTE Prophylaxis Education 10/25 004 Active zPT DIAGNOSIS 10/25 0043 Active Code Status 10/25 0043 Active Adult Emergency [id number] 10/25 42 Active Admit/Assign to.... 10/25 42 Active Activity-As tolerated w/assist 10/25 42 Active DIRECTOR OF STUDENT LIFE CONSULT 10/25 UNK Active Pt requires stay - bed needed 10/24 2206 Active LIPASE 10/24 2002 Complete HEPATIC PANEL 10/24 2002 Complete COMPLETE BLOOD COUNT 10/24 2002 Complete BASIC METABOLIC PANEL 10/24 2002 Complete AMYLASE 10/24 2002 Complete Problems Problems Current Problems 1. Abdominal pain 2. Ileus 3. Hypothyroidism 4. Hypertension 5. Asthma Plan Plans Additional Comments acute abdominal series in am <Electronically signed by DAVID REYNAGA M.D.> 10/25/17 1834 DAVID REYNAGA M.D. << Signature on File>> Reported By: DAVID REYNAGA M.D. Signed By: DAVID REYNAGA M.D. Tests performed at: [place] [id number] THERAPY NT Observed: 10/25/2017 Status: COMPLETED Source: [place] 4:41 PM [facility] REPOSITORY HNO ID: [id number] Author: Provider [facility] Service: (none) Author Type: Physician Type: Therapy (PT/OT/Speech/Resp) Filed: 06/29/2018 3:17 PM Note Text: [facility] [address] [address] PHYSICAL THERAPY REPORT Patient: RASHAWN ALMEIDA VINCE T M.D. [id number] [age] F Status: REG RCR PT PHYSICAL THERAPY INITIAL EVALUATION DATE OF EVALUATION 10/24/2017 DATE OF ONSET/INJURY 08/29/[address] Cassidy Nath. PHYSICAL THERAPY DIAGNOSIS 1. Decreased strength in left lower extremity. 2. Decreased balance in left lower extremity. MEDICAL DIAGNOSIS 1. Osteoporosis. 2. Osteoarthritis involving multiple joints. CHIEF COMPLAINT/FUNCTIONAL LIMITATION The patient complains of decreased strength in left lower extremity which is experienced during walking. HISTORY The patient is a 62-year-old female who reports that she has had progressive weakness in her left lower extremity for the past couple of months. The patient reports that she has no pain or numbness or tingling in the left lower extremity, just weakness. The patient reports that she has been getting increased muscle spasms in the hamstring of the left lower extremity over the past couple of months. While obtaining history, the patient was minimally distracted due to intense stomach pain. The patient reports that she is going to the emergency room right after initial evaluation. Therapist offered to stop evaluation so that she could go to the emergency room and we could continue the evaluation at another time, but the patient insisted that she wanted to get the physical therapy initial evaluation done and completed. The patient reports that she is unable to perform stairs. The patient reports that she has no stairs at home and has a ramp to enter. PERSONAL FACTORS AND COMORBIDITIES 1. Hypertension. 2. Osteoporosis. 3. Migraine headaches. 4. Osteoarthritis in the knee and hip. EXAMINATION Pain scale: 8/10. Active range of motion: Unable to assess due to severe stomach pain, not allowing the patient to get into a supine or prone position. We will assess next visit. Manual muscle testing: Hip flexion on the left is 3+/5. Hip flexion on right is 4/5. Knee flexion on left is 4-/5. Knee flexion on right is 4/5. Knee extension on left is 3+/5. Knee extension on right is 4/5. Dorsiflexion on left is 4+/5. Dorsiflexion on right is 4+/5. Balance: The patient is unable to perform single leg stance on right or left lower extremity. Gait: The patient presents with decreased step length bilaterally with increased trunk sway to the left during left stance. ON TODAY'S VISIT Patient unable to participate in any therapeutic exercises due to severe stomach pain, requiring early termination of initial evaluation. CLINICAL PRESENTATION The patient displays an evolving clinical presentation with changing characteristics. CLINICAL DECISION MAKING Moderate complexity based on above history, examination, and clinical presentation. SHORT TERM GOALS The patient will be independent with home exercise program within 1-2 weeks. SEWER HAND FUNCTIONAL GOALS 1. The patient will have 5/5 manual muscle test strength of bilateral lower extremity. 2. The patient will be able to ambulate with normalized gait pattern. 3. The patient will be able to ambulate stairs. 4. The patient will report an abolishment of upper and lower body symptoms. PROGNOSIS/REHABILITATION POTENTIAL Good to achieve therapy goals. TREATMENT PLAN The patient will be seen for therapeutic exercise, home exercise program, patient education, therapeutic activities, neuromuscular reeducation, manual therapy and stretching as needed and as indicated. FREQUENCY/DURATION One to two times per week for 6-12 weeks. We will recommend additional visits as needed. DISCHARGE PLAN The patient will be discharged from active physical therapy upon completion of all therapy goals, reaching a plateau in physical therapy progress, and/or maximizing current physical therapy prescription. Thank you for your referral of your patient. If you have any further questions, please feel free to contact me at [facility]. Sincerely, Dictated By: JORGE LARA DPT Signed By: JORGE LARA DPT 10/25/17 1642 << Signature on File>> Reported By: JORGE LARA DPT Signed By: JORGE LARA DPT Tests performed at: [place] [address] PHYSICAL THERAPY Observed: 10/25/2017 Status: F Source: [place] [facility] 4:[address] [facility] [place] [address] PHYSICAL THERAPY REPORT Patient: RASHAWN ALMEIDA VINCE T M.D. [id number] [age] F Status: REG RCR PT PHYSICAL THERAPY INITIAL EVALUATION DATE OF EVALUATION 10/24/2017 DATE OF ONSET/INJURY 08/29/[address] Cassidy Nath. PHYSICAL THERAPY DIAGNOSIS 1. Decreased strength in left lower extremity. 2. Decreased balance in left lower extremity. MEDICAL DIAGNOSIS 1. Osteoporosis. 2. Osteoarthritis involving multiple joints. CHIEF COMPLAINT/FUNCTIONAL LIMITATION The patient complains of decreased strength in left lower extremity which is experienced during walking. HISTORY The patient is a 62-year-old female who reports that she has had progressive weakness in her left lower extremity for the past couple of months. The patient reports that she has no pain or numbness or tingling in the left lower extremity, just weakness. The patient reports that she has been getting increased muscle spasms in the hamstring of the left lower extremity over the past couple of months. While obtaining history, the patient was minimally distracted due to intense stomach pain. The patient reports that she is going to the emergency room right after initial evaluation. Therapist offered to stop evaluation so that she could go to the emergency room and we could continue the evaluation at another time, but the patient insisted that she wanted to get the physical therapy initial evaluation done and completed. The patient reports that she is unable to perform stairs. The patient reports that she has no stairs at home and has a ramp to enter. PERSONAL FACTORS AND COMORBIDITIES 1. Hypertension. 2. Osteoporosis. 3. Migraine headaches. 4. Osteoarthritis in the knee and hip. EXAMINATION Pain scale: 8/10. Active range of motion: Unable to assess due to severe stomach pain, not allowing the patient to get into a supine or prone position. We will assess next visit. Manual muscle testing: Hip flexion on the left is 3+/5. Hip flexion on right is 4/5. Knee flexion on left is 4-/5. Knee flexion on right is 4/5. Knee extension on left is 3+/5. Knee extension on right is 4/5. Dorsiflexion on left is 4+/5. Dorsiflexion on right is 4+/5. Balance: The patient is unable to perform single leg stance on right or left lower extremity. Gait: The patient presents with decreased step length bilaterally with increased trunk sway to the left during left stance. ON TODAY'S VISIT Patient unable to participate in any therapeutic exercises due to severe stomach pain, requiring early termination of initial evaluation. CLINICAL PRESENTATION The patient displays an evolving clinical presentation with changing characteristics. CLINICAL DECISION MAKING Moderate complexity based on above history, examination, and clinical presentation. SHORT TERM GOALS The patient will be independent with home exercise program within 1-2 weeks. SEWER HAND FUNCTIONAL GOALS 1. The patient will have 5/5 manual muscle test strength of bilateral lower extremity. 2. The patient will be able to ambulate with normalized gait pattern. 3. The patient will be able to ambulate stairs. 4. The patient will report an abolishment of upper and lower body symptoms. PROGNOSIS/REHABILITATION POTENTIAL Good to achieve therapy goals. TREATMENT PLAN The patient will be seen for therapeutic exercise, home exercise program, patient education, therapeutic activities, neuromuscular reeducation, manual therapy and stretching as needed and as indicated. FREQUENCY/DURATION One to two times per week for 6-12 weeks. We will recommend additional visits as needed. DISCHARGE PLAN The patient will be discharged from active physical therapy upon completion of all therapy goals, reaching a plateau in physical therapy progress, and/or maximizing current physical therapy prescription. Thank you for your referral of your patient. If you have any further questions, please feel free to contact me at [facility]. Sincerely, Dictated By: JORGE LARA DPT Signed By: JORGE LARA DPT 10/25/17 1642 << Signature on File>> Reported By: JROGE LARA DPT Signed By: JORGE LARA DPT Tests performed at: [place] [address] PROGRESS Observed: 10/25/2017 Status: COMPLETED Source: [place] 12:20 PM [facility] REPOSITORY HNO ID: [id number] Author: Provider [facility] Service: (none) Author Type: Physician Type: Progress Notes Filed: 06/29/2018 3:17 PM Note Text: [place] [address] NUTRITION Progress Notes Patient: RASHAWN ALMEIDA : [birth year] Age: 62 Sex: F Attending Provider: NANCY Primary Care: TONNY EPPS M.D. Admit Date: 10/24/17 5.30 Room AND Bed: [facility] Report Date AND Time: 10/25/17 1220 Nutrition Assessment Complete Recommendations Based on the Completed Nutrition Assessment, please find the Recommendations Below: 1. ADAT to Cardiac PO diet order when medically feasible <Electronically signed by ELLYN DE JESUS> 10/25/17 1221 ELLYN DE JESUS << Signature on File>> Reported By: ELLYN DE JESUS Signed By: ELLYN DE JESUS Tests performed at: [place] [address] HISTORY PHYSICAL Observed: 10/25/2017 Status: COMPLETED Source: [place] 6:35 AM [facility] [place] REPOSITORY HNO ID: [id number] Author: Masoud Finley MD Service: (none) Author Type: Physician Type: HANDP Filed: 06/29/2018 3:16 PM Note Text: [place] [address] HEALTH INFORMATION MANAGEMENT HISTORY AND PHYSICAL Patient: RASHAWN ALMEIDA COLLIN D M.D. [id number] [age] F Status: ADM [facility] DATE OF ADMISSION 10/24/2017 HISTORY This is a 62 year-old female with history of chronic pain, hypertension, gastroesophageal reflux disease, hiatal hernia who has been having increasing epigastric pressure and pain. On the day of admission she vomited and the pain was severe so she came to the emergency room. She had a normal KUB and normal workup. They felt that this was just her chronic reflux for which she has had several ER visits for and sent her home. The patient then proceeded to vomit throughout most of the day, was unable to take any p.o. Vomitus was nonbloody; however, she was having dry heaves as well so she came back to the emergency room. CAT scan was done this time, which showed a possible partial small bowel obstruction so she was admitted to the hospital. Currently for me now she has no abdominal pain, no nausea, she has not vomited since she says 4:00 in the afternoon. She says she is passing gas and even had a small bowel movement earlier on the day of admission, although it was very hard stool. She does get constipation often from her chronic pain medication that she takes. No NG tube is placed and right now patient asking to have ice chips as she said this is what was given to her before when she had the same problem. She was well otherwise before this and a 10 point review of systems is otherwise completely negative. PAST MEDICAL HISTORY Includes DVTs, obstructive sleep apnea, asthma, hypertension and chronic neck and back pain for which she has received many different injections. PAST SURGICAL HISTORY Includes left knee arthroscopy, two herniorrhaphies, a total abdominal hysterectomy, cholecystectomy, multiple EGDs and one esophageal dilation. SOCIAL HISTORY She is a nonsmoker. Does not drink alcohol. FAMILY HISTORY Noncontributory. MEDICATION LIST 1. Percocet 7.5/325 one tablet three times a day as needed for pain. 2. Xanax 0.5 mg twice a day. 3. Prevacid 30 mg daily as needed. 4. Synthroid 88 mcg daily. 5. Phenergan syrup 12.5 mg q. 6 hours as needed for nausea and vomiting. 6. Potassium chloride 20 mEq daily as needed only if patient takes hydrochlorothiazide. 7. Hydrochlorothiazide 25 mg daily as needed for swelling. 8. Lexapro 5 mg daily. 9. Neurontin 300 mg twice a day. PHYSICAL EXAMINATION On exam, temperature 99.0, pulse rate 72, respiratory 20, blood pressure 141/85, satting 97% on 2 L nasal cannula. HEENT: Pupils equal, round and reactive to light and accommodation. Extraocular muscles intact. Mouth and throat are clear. Neck is supple. No JVD. No carotid bruits. Lungs are clear bilaterally. Heart is regular. No gallops or murmurs appreciated. Abdomen is completely soft and nontender. It is a completely benign abdomen. Extremities shows trace bilateral lower extremity edema. Neurologic exam is grossly nonfocal. LABS White blood cell count 11.8, hemoglobin 15.2, platelet count 216,000. Sodium 138, potassium 4.4, chloride 101, bicarbonate 24, BUN 14, creatinine 0.88, glucose 118, calcium 9.2, bilirubin 0.7, AST 51, ALT 87, alkaline phosphatase 164, protein 7.6, albumin 4.0, amylase 43, lipase 15. CAT scan reading is done with IV contrast only. Bowel is poorly evaluated due to absence of oral contrast. There is formed stool in at least one loop of small bowel however and bowel in the left lower quadrant is borderline dilated. There is a questionable transition point in the mid central pelvis and the impression is findings are suggestive of small bowel obstruction. ASSESSMENT AND PLAN 1. Abdominal pain leading to intractable nausea and vomiting, which is now improved with IV antiemetic and pain medication. Patient's abdomen is completely benign. CT reading is somewhat obscure due to no bowel contrast, but patient certainly with capability of having small bowel obstruction due to history of multiple abdominal surgeries. We will consider this to be partial small bowel that is resolving. Patient right now has no NG, says she is passing gas and even had a bowel movement today. We will keep her n.p.o. overnight and if she has no more symptoms can cautiously likely advance diet in the morning. If symptoms worsen would consult surgery but right now probably unnecessary at this time, as the symptom-lyle this seems to be resolving. We will continue IV pain medication and antiemetic and restart her home medications in the morning if she is able to take p.o. I would give her IV proton pump inhibitor for now as well given the history of reflux disease. Again in terms of her hyperthyroidism, hypertension and chronic pain we are holding oral agents for tonight, can be restarted as patient is able to take p.o. If she is unable to take p.o. and vomiting restarts patient will need an NG tube placed and surgery consult. <Electronically signed by MASOUD FINLEY M.D.> 10/25/17 1843 MASOUD FINLEY M.D. cc: MASOUD FINLEY M.D. << Signature on File>> Reported By: MASOUD FINLEY M.D. Signed By: MASOUD FINLEY M.D. Tests performed at: [address] [address] HISTORY AND PHYSICAL Observed: 10/25/2017 Status: F Source: [place] 6:35 AM [facility] [place] [address] HEALTH INFORMATION MANAGEMENT HISTORY AND PHYSICAL Patient: GRAYSONRASHAWNMASOUD GUILLEN M.D. [id number] [age] F Status: ADM [facility] 3912[facility]B DATE OF ADMISSION 10/24/2017 HISTORY This is a 62 year-old female with history of chronic pain, hypertension, gastroesophageal reflux disease, hiatal hernia who has been having increasing epigastric pressure and pain. On the day of admission she vomited and the pain was severe so she came to the emergency room. She had a normal KUB and normal workup. They felt that this was just her chronic reflux for which she has had several ER visits for and sent her home. The patient then proceeded to vomit throughout most of the day, was unable to take any p.o. Vomitus was nonbloody; however, she was having dry heaves as well so she came back to the emergency room. CAT scan was done this time, which showed a possible partial small bowel obstruction so she was admitted to the hospital. Currently for me now she has no abdominal pain, no nausea, she has not vomited since she says 4:00 in the afternoon. She says she is passing gas and even had a small bowel movement earlier on the day of admission, although it was very hard stool. She does get constipation often from her chronic pain medication that she takes. No NG tube is placed and right now patient asking to have ice chips as she said this is what was given to her before when she had the same problem. She was well otherwise before this and a 10 point review of systems is otherwise completely negative. PAST MEDICAL HISTORY Includes DVTs, obstructive sleep apnea, asthma, hypertension and chronic neck and back pain for which she has received many different injections. PAST SURGICAL HISTORY Includes left knee arthroscopy, two herniorrhaphies, a total abdominal hysterectomy, cholecystectomy, multiple EGDs and one esophageal dilation. SOCIAL HISTORY She is a nonsmoker. Does not drink alcohol. FAMILY HISTORY Noncontributory. MEDICATION LIST 1. Percocet 7.5/325 one tablet three times a day as needed for pain. 2. Xanax 0.5 mg twice a day. 3. Prevacid 30 mg daily as needed. 4. Synthroid 88 mcg daily. 5. Phenergan syrup 12.5 mg q. 6 hours as needed for nausea and vomiting. 6. Potassium chloride 20 mEq daily as needed only if patient takes hydrochlorothiazide. 7. Hydrochlorothiazide 25 mg daily as needed for swelling. 8. Lexapro 5 mg daily. 9. Neurontin 300 mg twice a day. PHYSICAL EXAMINATION On exam, temperature 99.0, pulse rate 72, respiratory 20, blood pressure 141/85, satting 97% on 2 L nasal cannula. HEENT: Pupils equal, round and reactive to light and accommodation. Extraocular muscles intact. Mouth and throat are clear. Neck is supple. No JVD. No carotid bruits. Lungs are clear bilaterally. Heart is regular. No gallops or murmurs appreciated. Abdomen is completely soft and nontender. It is a completely benign abdomen. Extremities shows trace bilateral lower extremity edema. Neurologic exam is grossly nonfocal. LABS White blood cell count 11.8, hemoglobin 15.2, platelet count 216,000. Sodium 138, potassium 4.4, chloride 101, bicarbonate 24, BUN 14, creatinine 0.88, glucose 118, calcium 9.2, bilirubin 0.7, AST 51, ALT 87, alkaline phosphatase 164, protein 7.6, albumin 4.0, amylase 43, lipase 15. CAT scan reading is done with IV contrast only. Bowel is poorly evaluated due to absence of oral contrast. There is formed stool in at least one loop of small bowel however and bowel in the left lower quadrant is borderline dilated. There is a questionable transition point in the mid central pelvis and the impression is findings are suggestive of small bowel obstruction. ASSESSMENT AND PLAN 1. Abdominal pain leading to intractable nausea and vomiting, which is now improved with IV antiemetic and pain medication. Patient's abdomen is completely benign. CT reading is somewhat obscure due to no bowel contrast, but patient certainly with capability of having small bowel obstruction due to history of multiple abdominal surgeries. We will consider this to be partial small bowel that is resolving. Patient right now has no NG, says she is passing gas and even had a bowel movement today. We will keep her n.p.o. overnight and if she has no more symptoms can cautiously likely advance diet in the morning. If symptoms worsen would consult surgery but right now probably unnecessary at this time, as the symptom-lyle this seems to be resolving. We will continue IV pain medication and antiemetic and restart her home medications in the morning if she is able to take p.o. I would give her IV proton pump inhibitor for now as well given the history of reflux disease. Again in terms of her hyperthyroidism, hypertension and chronic pain we are holding oral agents for tonight, can be restarted as patient is able to take p.o. If she is unable to take p.o. and vomiting restarts patient will need an NG tube placed and surgery consult. <Electronically signed by MASOUD FINLEY M.D.> 10/25/17 1843 MASOUD FINLEY M.D. cc: MASOUD FINLEY M.D. << Signature on File>> Reported By: MASOUD FINLEY M.D. Signed By: MASOUD FINLEY M.D. Tests performed at: [address] [address] ED PROV NOTE Observed: 10/25/2017 Status: COMPLETED Source: [place] 6:01 AM [facility] REPOSITORY HNO ID: [id number] Author: Shamir Medina Service: (none) Author Type: Physician Type: ED Provider Notes Filed: 06/29/2018 3:16 PM Note Text: [place] [address] HEALTH INFORMATION MANAGEMENT EMERGENCY DEPARTMENT REPORT Patient: RASHAWN ALMEIDASHAMIR Baltazar.Pita [id number] [age] F Status: DIS [facility] 3912-B Date of Service: 10/24/17 CHIEF COMPLAINT Abdominal pain. The patient seen earlier today by Dr. Prather sent home. Symptoms got worse. She says she is still vomiting and increased pain. PAST MEDICAL HISTORY She has history of anxiety, asthma, hypertension, partial small bowel obstruction, GERD, ileus. PAST SURGICAL HISTORY Hysterectomy, cholecystectomy, tubal ligation. SOCIAL HISTORY She is . She does not smoke, drink, or use drugs. ALLERGIES No known drug allergies. REVIEW OF SYSTEMS I did review all 10 review of systems. The remaining ones were negative other than mentioned in the HPI. MEDICATIONS I have reviewed nursing notes and medication history. PHYSICAL EXAMINATION Vital signs blood pressure is 173/93, temperature 97.5, pulse 73, respiratory rate 18, pulse ox 95%. Pain is 10/10. This is a white female who is in moderate discomfort. Her pain is 10/10. She is alert and oriented. Cranial nerves II through XII are grossly intact. Pupils are equal, round, reactive to light. Extraocular muscles are intact. Heart is regular rate and rhythm no murmur. Lungs are clear to auscultation. No wheezing, rhonchi, or rales. Her abdomen is soft but tender diffusely with decreased bowel sounds. Extremities: No clubbing, cyanosis, edema. EMERGENCY DEPARTMENT COURSE I briefly repeated the CBC and BMP and did a CT with IV contrast and it is showing she has a small bowel obstruction. IMPRESSION Small bowel obstruction. PLAN I called Dr. Collins and he advised me that he would be on for consult and to call the hospitalist for admission. I spoke with Dr. Finley who accepted the admission. ADMIT <Electronically signed by SHAMIR MEDINA D.O.> 10/28/17 0723 SHAMIR MEDINA D.O. cc: TONNY EPPS M.D.; SHAMIR MEDINA D.O. << Signature on File>> Reported By: SHAMIR MEDINA D.O. Signed By: SHAMIR MEDINA D.O. Tests performed at: [address] [address] EMERGENCY DEPARTMENT Observed: 10/25/2017 Status: F Source: [place] [facility] 6:01 AM [facility] [place] [place] [address] HEALTH INFORMATION MANAGEMENT EMERGENCY DEPARTMENT REPORT Patient: RASHAWN ALMEIDA SHAMIR MEDINA D.O. [id number] [age] F Status: DIS [facility] 3912-B Date of Service: 10/24/17 CHIEF COMPLAINT Abdominal pain. The patient seen earlier today by Dr. Prather sent home. Symptoms got worse. She says she is still vomiting and increased pain. PAST MEDICAL HISTORY She has history of anxiety, asthma, hypertension, partial small bowel obstruction, GERD, ileus. PAST SURGICAL HISTORY Hysterectomy, cholecystectomy, tubal ligation. SOCIAL HISTORY She is . She does not smoke, drink, or use drugs. ALLERGIES No known drug allergies. REVIEW OF SYSTEMS I did review all 10 review of systems. The remaining ones were negative other than mentioned in the HPI. MEDICATIONS I have reviewed nursing notes and medication history. PHYSICAL EXAMINATION Vital signs blood pressure is 173/93, temperature 97.5, pulse 73, respiratory rate 18, pulse ox 95%. Pain is 10/10. This is a white female who is in moderate discomfort. Her pain is 10/10. She is alert and oriented. Cranial nerves II through XII are grossly intact. Pupils are equal, round, reactive to light. Extraocular muscles are intact. Heart is regular rate and rhythm no murmur. Lungs are clear to auscultation. No wheezing, rhonchi, or rales. Her abdomen is soft but tender diffusely with decreased bowel sounds. Extremities: No clubbing, cyanosis, edema. EMERGENCY DEPARTMENT COURSE I briefly repeated the CBC and BMP and did a CT with IV contrast and it is showing she has a small bowel obstruction. IMPRESSION Small bowel obstruction. PLAN I called Dr. Collins and he advised me that he would be on for consult and to call the hospitalist for admission. I spoke with Dr. Finley who accepted the admission. ADMIT <Electronically signed by SHAMIR MEDINA D.O.> 10/28/17 0723 SHAMIR MEDINA D.O. cc: TONNY EPPS M.D.; SHAMIR MEDINA D.O. << Signature on File>> Reported By: SHAMIR MEDINA D.O. Signed By: SHAMIR MEDINA D.O. Tests performed at: [address] [address] CBC Collected: 10/25/2017 Status: F Source: [facility] 4:58 AM HOSPITAL REPOSITORY TYPE CODE TESTS RESULT OUT OF RANGE REFERENCE UNITS LAB L200.0100 4.5-10.0 x10(3) Normal WBC 8.4 LAB L200.0200 3.30-5.00 x10(6) Normal RBC 4.36 LAB L200.0210 12.0-16.0 g/dL Normal HGB 13.3 LAB L200.0220 36.0-48.0 % Normal HCT 39.4 LAB L200.0230 80.0-99.0 fl Normal MCV 90.5 LAB L200.0240 28.5-32.9 pg Normal MCH 30.5 LAB L200.0250 33.0-36.0 g/dL Normal MCHC 33.7 LAB L200.0260 12.5-15.7 % Normal RDW 15.4 LAB L200.0270 150-450 X10(3) Normal PLT 202 LAB L200.0290 7.5-9.5 fl Normal MPV 8.8 LAB L200.0300 45.0-73.0 % Normal NEUT% 72.5 LAB L200.0310 16.0-48.0 % Normal LYMPH% 19.8 LAB L200.0320 4.3-11.2 % Normal MONO% 6.3 LAB L200.0330 0.5-4.9 % Normal EOS% 0.9 LAB L200.0340 0.0-1.0 % Normal BASO% 0.5 LAB L200.0350 1.40-6.50 x10(3) Normal NEUT# 6.10 LAB L200.0360 1.00-3.50 x10(3) Normal LYMPH# 1.70 LAB L200.0370 0.30-0.80 x10(3) Normal MONO# 0.50 LAB L200.0380 0.00-0.54 x10(3) Normal EOS# 0.10 LAB L200.0390 0.00-0.10 x10(3) Normal BASO# 0.00 Performed By: #### L200.0010 #### [facility] [address] [place] [address] BMP Collected: 10/25/2017 Status: F Source: [facility] 4:58 AM HOSPITAL REPOSITORY TYPE CODE TESTS RESULT OUT OF RANGE REFERENCE UNITS LAB L100.0060 82-115 mg/dL GLUCOSE Normal 98 LAB L100.0110 8-23 mg/dL BUN Normal 12 LAB L100.0131 0.50-0.90 mg/dL Normal CREATININE 0.84 LAB L100.0140 8.8-10.2 mg/dL Low CALCIUM 8.3 LAB L100.0150 135-145 mmol/L SODIUM Normal 142 LAB L100.0160 3.5-5.0 mmol/L Normal POTASSIUM 4.6 LAB L100.0170 98-107 mmol/L CHLORIDE Normal 104 LAB L100.0180 22-29 mmol/L TCO2 Normal 26 LAB L100.0185 15-22 mmol/L ANION Normal GAP 16.6 LAB L100.0274 eGFR Normal nonAFR Rohan > 60 ml/Min/1.73m 2 LAB L100.0275 eGFR if Normal AFR ROHAN > 60 ml/min/1.73m 2 Result Comment: eGFR >= 60 Indicates normal kidney function. * eGFR IS AN ESTIMATE * (AFR ROHAN = ) (non-AFR AM = NON-) MDRD calculation used in the eGFR should not be used to dose medications. For further limitations of the eGFR please refer to the Physician Website or the National Kidney Disease Education Program website (www.nkdep.nih.gov). Performed By: #### L100.0010 #### [facility] [address] [place] [id number] PROGRESS Observed: 10/25/2017 Status: COMPLETED Source: [place] 12:55 AM [facility] [place] REPOSITORY HNO ID: [id number] Author: Masoud Finley MD Service: (none) Author Type: Physician Type: Progress Notes Filed: 06/29/2018 3:15 PM Note Text: [place] [address] QUICK NOTE Patient: GRAYSONRASHAWN COLLIN D M.D. [id number] [age] F Status: ADM IN [facility] 3912-B Report Date AND Time: 10/25/17 0055 Change Of Status Additional Notes Patient seen and examined. HANDP dictated #[id number] <Electronically signed by MASOUD FINLEY M.D.> 10/25/17 0056 MASOUD FINLEY M.D. << Signature on File>> Reported By: MASOUD FINLEY M.D. Signed By: MASOUD FINLEY M.D. Tests performed at: [address] [address] CBC Collected: 10/24/2017 Status: F Source: [facility] 8:22 PM HOSPITAL REPOSITORY TYPE CODE TESTS RESULT OUT OF RANGE REFERENCE UNITS LAB L200.0100 4.5-10.0 x10(3) High WBC 11.8 LAB L200.0200 3.30-5.00 x10(6) High RBC 5.13 LAB L200.0210 12.0-16.0 g/dL Normal HGB 15.2 LAB L200.0220 36.0-48.0 % Normal HCT 46.5 LAB L200.0230 80.0-99.0 fl Normal MCV 90.7 LAB L200.0240 28.5-32.9 pg Normal MCH 29.6 LAB L200.0250 33.0-36.0 g/dL Low MCHC 32.6 LAB L200.0260 12.5-15.7 % Normal RDW 15.2 LAB L200.0270 150-450 X10(3) Normal PLT 216 LAB L200.0290 7.5-9.5 fl Normal MPV 8.6 LAB L200.0300 45.0-73.0 % High NEUT% 82.3 LAB L200.0310 16.0-48.0 % Low LYMPH% 11.5 LAB L200.0320 4.3-11.2 % Normal MONO% 5.1 LAB L200.0330 0.5-4.9 % Normal EOS% 0.6 LAB L200.0340 0.0-1.0 % Normal BASO% 0.5 LAB L200.0350 1.40-6.50 x10(3) High NEUT# 9.70 LAB L200.0360 1.00-3.50 x10(3) Normal LYMPH# 1.40 LAB L200.0370 0.30-0.80 x10(3) Normal MONO# 0.60 LAB L200.0380 0.00-0.54 x10(3) Normal EOS# 0.10 LAB L200.0390 0.00-0.10 x10(3) Normal BASO# 0.10 Performed By: #### L200.0010 #### [facility] [address] [place] [id number] BMP Collected: 10/24/2017 Status: F Source: [facility] 8:22 PM HOSPITAL REPOSITORY TYPE CODE TESTS RESULT OUT OF RANGE REFERENCE UNITS LAB L100.0060 82-115 mg/dL High GLUCOSE 118 LAB L100.0110 8-23 mg/dL BUN Normal 14 LAB L100.0131 0.50-0.90 mg/dL Normal CREATININE 0.88 LAB L100.0140 8.8-10.2 mg/dL CALCIUM Normal 9.2 LAB L100.0150 135-145 mmol/L SODIUM Normal 138 LAB L100.0160 3.5-5.0 mmol/L Normal POTASSIUM 4.4 LAB L100.0170 98-107 mmol/L CHLORIDE Normal 101 LAB L100.0180 22-29 mmol/L TCO2 Normal 24 LAB L100.0185 15-22 mmol/L ANION Normal GAP 17.4 LAB L100.0274 eGFR Normal nonAFR Rohan > 60 ml/Min/1.73m 2 LAB L100.0275 eGFR if Normal AFR ROHAN > 60 ml/min/1.73m 2 Result Comment: eGFR >= 60 Indicates normal kidney function. * eGFR IS AN ESTIMATE * (AFR ROHAN = ) (non-AFR AM = NON-) MDRD calculation used in the eGFR should not be used to dose medications. For further limitations of the eGFR please refer to the Physician Website or the National Kidney Disease Education Program website (www.nkdep.nih.gov). Performed By: #### L100.0010, L100.0030, L100.0340, L100.0350 #### [facility] [address] [place] [address] HEPATIC PANEL Collected: 10/24/2017 Status: F Source: [place] 8:22 PM [facility] [place], [place] REPOSITORY TYPE CODE TESTS RESULT OUT OF RANGE REFERENCE UNITS LAB L100.0200 6.4-8.3 g/dL TOTAL Normal PROTEIN 7.6 LAB L100.0210 3.5-5.2 g/dL Normal ALBUMIN 4.0 LAB L100.0220 0.2-1.2 mg/dL TOTAL Normal BILIRUBIN 0.7 LAB L100.0230 0.0-0.3 mg/dL Normal DIRECT BILIRUBI 0.2 LAB L100.0240 5-32 U/L High AST 51 LAB L100.0250 5-33 U/L High ALT 87 LAB L100.0260 35-105 U/L High ALK. PHOS 164 LAB L100.0262 1.5-4.5 g/dL Normal GLOBULIN,CALC 3.6 LAB L100.0264 1.1-2.5 A:G Normal RATIO 1.11 Performed By: #### L100.0010, L100.0030, L100.0340, L100.0350 #### [facility] [address] [place] [address] AMYLASE Collected: 10/24/2017 Status: F Source: [place] 8:22 PM [facility] [place], [place] REPOSITORY TYPE CODE TESTS RESULT OUT OF RANGE REFERENCE UNITS LAB L100.0340 28-100 U/L Normal AMYLASE 43 Performed By: #### L100.0010, L100.0030, L100.0340, L100.0350 #### [facility] [address] [place] [address] LIPASE Collected: 10/24/2017 Status: F Source: [facility] 8:22 HOSPITAL REPOSITORY TYPE CODE TESTS RESULT OUT OF RANGE REFERENCE UNITS LAB L100.0350 13-60 U/L Normal LIPASE 15 Performed By: #### L100.0010, L100.0030, L100.0340, L100.0350 #### [facility] [address] [place] [address] ABD/PEL W CONTRAST Observed: 10/24/2017 Status: F Source: [place] 8:03 [facility] REPOSITORY [address] [address] Name: RASHAWN ALMEIDA Phys: SHAMIR MEDINA D.O. : [birth year] Age: 62 Sex: F Acct: [id number] Loc: ED Exam Date: 10/24/17 Status: [facility] ER Radiology No.: [id number] Unit Number: [id number] Exam # Type/Exam [id number] CT / CT ABD/PEL W CONTRAST CT of the abdomen and pelvis Indication: Abdominal pain Comparison: Multiple comparisons, most recently February,. Technique: CT of the abdomen and pelvis following uncomplicated administration of intravenous contrast, with sagittal and coronal reconstructions. Findings: The bases of the lungs are clear. The abdominal organs are unremarkable in appearance. Bowel is poorly evaluated in the absence of oral contrast. There is formed stool and at least one loop of small bowel, however, and small bowel in the LEFT lower quadrant is borderline dilated up to 2.7 cm in diameter. There is a questionable transition point in the mid central pelvis. There is mild free fluid in the central mesentery. Impression: Findings are suggestive of small bowel obstruction. No free fluid. This exam was performed according to our departmental dose optimization program, and includes the following measures where applicable: automated exposure control, adjustment of the mAs and/or kVp according to patient size and/or exam, and an iterative reconstruction algorithm. Professional interpretation provided by [facility], [place] on [employer]-76. Thank you for this referral. <<Signature on File>> Reported By: FLORIDALMA JAMES M.D. Signed In NovaPro By: FLORIDALMA JAMES M.D. << Signature on File>> Reported By: FLORIDALMA JAMES M.D. Signed By: FLORIDALMA JAMES M.D. Tests performed at: [address] [address] ED PROV NOTE Observed: 10/24/2017 Status: COMPLETED Source: [place] 3:27 PM [facility] [place] REPOSITORY O ID: [id number] Author: Preston Prather Service: (none) Author Type: Physician Type: ED Provider Notes Filed: 06/29/2018 3:15 PM Note Text: [place] [address] HEALTH INFORMATION MANAGEMENT EMERGENCY DEPARTMENT REPORT Patient: RASHAWN ALMEIDA KEVIN J M.D. [id number] [age] F Status: [facility] ER ED Date of Service: 10/24/17 CHIEF COMPLAINT Reported to be abdominal pain. HISTORY OF PRESENT ILLNESS The patient presents with abdominal pain, epigastric, some nauseousness, no vomiting, has taken nothing for the symptoms. PHYSICAL EXAMINATION Upon examination, the patient is quite anxious appearing. Her abdomen is soft, positive bowel sounds. There is some mild epigastric tenderness to palpation. No peritoneal signs. EMERGENCY DEPARTMENT COURSE I did see and examine the patient along with nurse practitioner Jose. I agree with her management plan and disposition. IMPRESSION <Electronically signed by PRESTON PRATHER M.D.> 10/26/17 0847 PRESTON PRATHER M.D. cc: TONNY EPPS M.D.; PRESTON PRATHER M.D. << Signature on File>> Reported By: PRESTON PRATHER M.D. Signed By: PRESTON PRATHER M.D. Tests performed at: [address] [address] EMERGENCY DEPARTMENT Observed: 10/24/2017 Status: F Source: [place] REPORT 3:27 PM [facility] [place] [address] HEALTH INFORMATION MANAGEMENT EMERGENCY DEPARTMENT REPORT Patient: RASHAWN ALMEIDA PRESTON PRATHER M.D. [id number] [age] F Status: [facility] ER ED Date of Service: 10/24/17 CHIEF COMPLAINT Reported to be abdominal pain. HISTORY OF PRESENT ILLNESS The patient presents with abdominal pain, epigastric, some nauseousness, no vomiting, has taken nothing for the symptoms. PHYSICAL EXAMINATION Upon examination, the patient is quite anxious appearing. Her abdomen is soft, positive bowel sounds. There is some mild epigastric tenderness to palpation. No peritoneal signs. EMERGENCY DEPARTMENT COURSE I did see and examine the patient along with nurse practitioner Jose. I agree with her management plan and disposition. IMPRESSION <Electronically signed by PRESTON PRATHER M.D.> 10/26/17 0847 PRESTON PRATHER M.D. cc: TONNY EPPS M.D.; PRESTON PRATHER M.D. << Signature on File>> Reported By: PRESTON PRATHER M.D. Signed By: PRESTON PRATHER M.D. Tests performed at: [address] [address] ED PROV NOTE Observed: 10/24/2017 Status: COMPLETED Source: [place] 12:19 PM [facility] REPOSITORY HNO ID: [id number] Author: Preston Prather Service: (none) Author Type: Physician Type: ED Provider Notes Filed: 06/29/2018 3:14 PM Note Text: [facility] [place] [address] HEALTH INFORMATION MANAGEMENT EMERGENCY DEPARTMENT REPORT Patient: RASHAWN ALMEIDAPRESTON M.D. as dictated by DAREN FARR [id number] [age] F Status: [facility] ER ED Date of Service: 10/24/17 CHIEF COMPLAINT/HISTORY OF PRESENT ILLNESS A 62-year-old female presents with epigastric abdominal pain. The patient states she has history of hiatal hernia and acid reflux and ulcers and she states it started around 6:30 this morning when she woke up. It makes her nauseous feels that she is going to vomit. She states she has had some issues with constipation recently due to Percocet. ALLERGIES None. SOCIAL HISTORY The patient is does not smoke. PAST SURGICAL HISTORY Hysterectomy, cholecystectomy, tubal, rotator cuff repair, thyroid surgery, left knee surgery, carpal tunnel repair, hernia repair x2. PAST MEDICAL HISTORY Hypertension, asthma, osteoporosis, Florian's palsy, hypothyroidism, anxiety, depression, chronic pain. PHYSICAL EXAMINATION On examination blood pressure was elevated at 167/101, temperature 98.2, pulse 73. Respirations 20 and pulse ox 97% on room air. The patient is alert, age appropriate, resting comfortably in the bed holding her epigastric area. Upon evaluation pupils are equal. Nose is patent. Throat is clear. Trachea is midline. Neck is supple. Lungs are clear throughout. No wheezes, rhonchi, rales. Heart is regular rate, rhythm no murmurs appreciated. Abdomen is soft. She is tender in the epigastric area. Bowel sounds heard throughout, normoactive. No distension noted. No bruising. No masses palpated. No CVA tenderness on percussion bilaterally. No pressure over the bladder. No swelling to the lower extremities. No numbness, tingling, decreased sensation in extremities and full range of motion. EMERGENCY DEPARTMENT COURSE After evaluating the patient I did complete lab work and abdominal films. Abdominal films show unremarkable abdomen. No free air. No organomegaly nonobstructive bowel gas pattern. CMP elevated liver enzymes AST is 37, ALT 82, alk phos 150. Lipase is normal. CBC white count is 10.7, otherwise unremarkable. The patient was originally given Protonix and GI cocktail and Phenergan p.o. and these did not relieve so did give her IM injection of morphine and Zofran. On reevaluation she is resting comfortably in the bed on her cell phone. States the pain is completely gone. She is ready to go home. I discussed with her Phenergan suppositories for nausea, rest. We will recheck blood pressure it was elevated here. Continue her home regimen and follow with her family doctor in about a week for recheck to assure she is improved. Avoid spicy, greasy, fried foods. DISPOSITION Discharge. IMPRESSION 1. Epigastric pain. 2. History of hiatal hernia. <Electronically signed by PRESTON PRATHER M.D.> 10/26/17 0847 PRESTON PRATHER M.D. cc: TONNY EPPS M.D.; PRESTON PRATHER M.D. << Signature on File>> Reported By: PRESTON PRATHER M.D. Signed By: PRESTON PRATHER M.D. Tests performed at: [address] [address] ED REPORT Observed: 10/24/2017 Status: F Source: [facility] 12:19 PM [place] [address] HEALTH INFORMATION MANAGEMENT EMERGENCY DEPARTMENT REPORT Patient: GRAYSONRASHAWNPRESTON WINTERS M.D. as dictated by DAREN FARR [id number] [age] F Status: [facility] ER ED Date of Service: 10/24/17 CHIEF COMPLAINT/HISTORY OF PRESENT ILLNESS A 62-year-old female presents with epigastric abdominal pain. The patient states she has history of hiatal hernia and acid reflux and ulcers and she states it started around 6:30 this morning when she woke up. It makes her nauseous feels that she is going to vomit. She states she has had some issues with constipation recently due to Percocet. ALLERGIES None. SOCIAL HISTORY The patient is does not smoke. PAST SURGICAL HISTORY Hysterectomy, cholecystectomy, tubal, rotator cuff repair, thyroid surgery, left knee surgery, carpal tunnel repair, hernia repair x2. PAST MEDICAL HISTORY Hypertension, asthma, osteoporosis, Florian's palsy, hypothyroidism, anxiety, depression, chronic pain. PHYSICAL EXAMINATION On examination blood pressure was elevated at 167/101, temperature 98.2, pulse 73. Respirations 20 and pulse ox 97% on room air. The patient is alert, age appropriate, resting comfortably in the bed holding her epigastric area. Upon evaluation pupils are equal. Nose is patent. Throat is clear. Trachea is midline. Neck is supple. Lungs are clear throughout. No wheezes, rhonchi, rales. Heart is regular rate, rhythm no murmurs appreciated. Abdomen is soft. She is tender in the epigastric area. Bowel sounds heard throughout, normoactive. No distension noted. No bruising. No masses palpated. No CVA tenderness on percussion bilaterally. No pressure over the bladder. No swelling to the lower extremities. No numbness, tingling, decreased sensation in extremities and full range of motion. EMERGENCY DEPARTMENT COURSE After evaluating the patient I did complete lab work and abdominal films. Abdominal films show unremarkable abdomen. No free air. No organomegaly nonobstructive bowel gas pattern. CMP elevated liver enzymes AST is 37, ALT 82, alk phos 150. Lipase is normal. CBC white count is 10.7, otherwise unremarkable. The patient was originally given Protonix and GI cocktail and Phenergan p.o. and these did not relieve so did give her IM injection of morphine and Zofran. On reevaluation she is resting comfortably in the bed on her cell phone. States the pain is completely gone. She is ready to go home. I discussed with her Phenergan suppositories for nausea, rest. We will recheck blood pressure it was elevated here. Continue her home regimen and follow with her family doctor in about a week for recheck to assure she is improved. Avoid spicy, greasy, fried foods. DISPOSITION Discharge. IMPRESSION 1. Epigastric pain. 2. History of hiatal hernia. <Electronically signed by PRESTON PRATHER M.D.> 10/26/17 0847 PRESTON PRATHER M.D. cc: TONNY EPPS M.D.; PRESTON PRATHER M.D. << Signature on File>> Reported By: PRESTON PRATHER M.D. Signed By: PRESTON PRATHER M.D. Tests performed at: [address] [address] CBC Collected: 10/24/2017 Status: F Source: [facility] 9:28 AM HOSPITAL REPOSITORY TYPE CODE TESTS RESULT OUT OF RANGE REFERENCE UNITS LAB L200.0100 4.5-10.0 x10(3) High WBC 10.7 LAB L200.0200 3.30-5.00 x10(6) Normal RBC 4.85 LAB L200.0210 12.0-16.0 g/dL Normal HGB 14.7 LAB L200.0220 36.0-48.0 % Normal HCT 43.8 LAB L200.0230 80.0-99.0 fl Normal MCV 90.3 LAB L200.0240 28.5-32.9 pg Normal MCH 30.2 LAB L200.0250 33.0-36.0 g/dL Normal MCHC 33.4 LAB L200.0260 12.5-15.7 % Normal RDW 15.2 LAB L200.0270 150-450 X10(3) Normal PLT 214 LAB L200.0290 7.5-9.5 fl Normal MPV 8.8 LAB L200.0300 45.0-73.0 % Normal NEUT% 71.9 LAB L200.0310 16.0-48.0 % Normal LYMPH% 20.2 LAB L200.0320 4.3-11.2 % Normal MONO% 5.0 LAB L200.0330 0.5-4.9 % Normal EOS% 1.9 LAB L200.0340 0.0-1.0 % Normal BASO% 1.0 LAB L200.0350 1.40-6.50 x10(3) High NEUT# 7.70 LAB L200.0360 1.00-3.50 x10(3) Normal LYMPH# 2.20 LAB L200.0370 0.30-0.80 x10(3) Normal MONO# 0.50 LAB L200.0380 0.00-0.54 x10(3) Normal EOS# 0.20 LAB L200.0390 0.00-0.10 x10(3) Normal BASO# 0.10 Performed By: #### L200.0010 #### [facility] [address] [place] [address] CMP Collected: 10/24/2017 Status: F Source: [facility] 9:28 AM HOSPITAL REPOSITORY TYPE CODE TESTS RESULT OUT OF RANGE REFERENCE UNITS LAB L100.0060 82-115 mg/dL GLUCOSE Normal 92 LAB L100.0110 8-23 mg/dL BUN Normal 16 LAB L100.0131 0.50-0.90 mg/dL Normal CREATININE 0.89 LAB L100.0140 8.8-10.2 mg/dL CALCIUM Normal 9.4 LAB L100.0150 135-145 mmol/L SODIUM Normal 141 LAB L100.0160 3.5-5.0 mmol/L Normal POTASSIUM 4.2 LAB L100.0170 98-107 mmol/L CHLORIDE Normal 103 LAB L100.0180 22-29 mmol/L TCO2 Normal 27 LAB L100.0185 15-22 mmol/L ANION Normal GAP 15.2 LAB L100.0200 6.4-8.3 g/dL TOTAL Normal PROTEIN 7.7 LAB L100.0210 3.5-5.2 g/dL ALBUMIN Normal 4.3 LAB L100.0220 0.2-1.2 mg/dL TOTAL Normal BILIRUBIN 0.4 LAB L100.0240 5-32 U/L High AST 37 LAB L100.0250 5-33 U/L High ALT 82 LAB L100.0260 35-105 U/L High ALK. PHOS 150 LAB L100.0262 1.5-4.5 g/dL Normal GLOBULIN,CALC 3.4 LAB L100.0264 1.1-2.5 A:G Normal RATIO 1.26 LAB L100.0274 eGFR Normal nonAFR Rohan > 60 ml/Min/1.73m 2 LAB L100.0275 eGFR if Normal AFR ROHAN > 60 ml/min/1.73m 2 Result Comment: eGFR >= 60 Indicates normal kidney function. * eGFR IS AN ESTIMATE * (AFR ROHAN = ) (non-AFR AM = NON-) MDRD calculation used in the eGFR should not be used to dose medications. For further limitations of the eGFR please refer to the Physician Website or the National Kidney Disease Education Program website (www.nkdep.nih.gov). Performed By: #### L100.0005, L100.0350 #### [facility] [address] [place] [address] LIPASE Collected: 10/24/2017 Status: F Source: [facility] 9:28 AM HOSPITAL REPOSITORY TYPE CODE TESTS RESULT OUT OF RANGE REFERENCE UNITS LAB L100.0350 13-60 U/L Normal LIPASE 19 Performed By: #### L100.0005, L100.0350 #### [facility] [address] [place] [address] ABDOMEN MULTIPLE Observed: 10/24/2017 Status: F Source: [facility] 9:21 AM [facility] REPOSITORY [address] [address] Name: RASHAWN ALMEIDA Phys: LINDSAY VALLE Norberto TRACE EVIDENCE TECHNICIAN-C : 53 Age: 62 Sex: F Acct: [id number] Loc: ED Exam Date: 10/24/17 Status: [facility] Radiology No.: [id number] Unit Number: [id number] Exam # Type/Exam [id number] RAD / ABDOMEN MULTIPLE VIEWS PROCEDURE: Abdominal Radiography. HISTORY: Abdominal pain. COMPARISON: 07/05/2017 FINDINGS: Frontal upright and supine views obtained. There is a nonobstructive bowel gas pattern. No organomegaly. No free air. No pathologic abdominal calcification is seen. Prior herniorrhaphy is noted in the right lower quadrant. The bones are unremarkable. IMPRESSION: Unremarkable abdomen. If the symptoms persist consider CT scan Professional interpretation provided by [facility], [place] on [employer]-PC-60. Thank you for this referral. <<Signature on File>> Reported By: ELIZABETH HERRERA M.D. Signed In NovaPro By: ELIZABETH HERRERA M.D. << Signature on File>> Reported By: ELIZABETH HERRERA M.D. Signed By: ELIZABETH HERRERA M.D. Tests performed at: [address] [address] CBC Collected: 10/13/2017 Status: F Source: [facility] 11:33 AM HOSPITAL REPOSITORY TYPE CODE TESTS RESULT OUT OF RANGE REFERENCE UNITS LAB L200.0100 4.5-10.0 x10(3) Normal WBC 7.9 LAB L200.0200 3.30-5.00 x10(6) Normal RBC 4.47 LAB L200.0210 12.0-16.0 g/dL Normal HGB 13.7 LAB L200.0220 36.0-48.0 % Normal HCT 40.9 LAB L200.0230 80.0-99.0 fl Normal MCV 91.4 LAB L200.0240 28.5-32.9 pg Normal MCH 30.6 LAB L200.0250 33.0-36.0 g/dL Normal MCHC 33.5 LAB L200.0260 12.5-15.7 % Normal RDW 15.4 LAB L200.0270 150-450 X10(3) Normal PLT 200 LAB L200.0290 7.5-9.5 fl High MPV 10.0 LAB L200.0300 45.0-73.0 % Normal NEUT% 62.1 LAB L200.0310 16.0-48.0 % Normal LYMPH% 28.3 LAB L200.0320 4.3-11.2 % Normal MONO% 6.5 LAB L200.0330 0.5-4.9 % Normal EOS% 1.9 LAB L200.0340 0.0-1.0 % High BASO% 1.2 LAB L200.0350 1.40-6.50 x10(3) Normal NEUT# 4.90 LAB L200.0360 1.00-3.50 x10(3) Normal LYMPH# 2.20 LAB L200.0370 0.30-0.80 x10(3) Normal MONO# 0.50 LAB L200.0380 0.00-0.54 x10(3) Normal EOS# 0.20 LAB L200.0390 0.00-0.10 x10(3) Normal BASO# 0.10 Performed By: #### L200.0010, L200.1500 #### [facility] [address] [place] [address] ESR Collected: 10/13/2017 Status: F Source: [facility] 11:33 AM HOSPITAL REPOSITORY TYPE CODE TESTS RESULT OUT OF RANGE REFERENCE UNITS LAB L200.1500 0-20 MM/HR High ESR 28 Performed By: #### L200.0010, L200.1500 #### [facility] - [facility] [address] [place] [address] BMP Collected: 10/13/2017 Status: F Source: [facility] 11:33 AM HOSPITAL REPOSITORY TYPE CODE TESTS RESULT OUT OF RANGE REFERENCE UNITS LAB L100.0060 82-115 mg/dL GLUCOSE Normal 88 LAB L100.0110 8-23 mg/dL BUN Normal 17 LAB L100.0131 0.50-0.90 mg/dL High CREATININE 1.09 LAB L100.0140 8.8-10.2 mg/dL CALCIUM Normal 9.4 LAB L100.0150 135-145 mmol/L SODIUM Normal 143 LAB L100.0160 3.5-5.0 mmol/L High POTASSIUM 5.3 LAB L100.0170 98-107 mmol/L CHLORIDE Normal 107 LAB L100.0180 22-29 mmol/L TCO2 Normal 25 LAB L100.0185 15-22 mmol/L ANION Normal GAP 16.3 LAB L100.0274 eGFR Normal nonAFR Rohan 51 LAB L100.0275 eGFR if Normal AFR ROHAN > 60 ml/min/1.73m 2 Result Comment: eGFR >= 60 Indicates normal kidney function. * eGFR IS AN ESTIMATE * (AFR ROHAN = ) (non-AFR AM = NON-) MDRD calculation used in the eGFR should not be used to dose medications. For further limitations of the eGFR please refer to the Physician Website or the National Kidney Disease Education Program website (www.nkdep.nih.gov). Performed By: #### L100.0010, L100.0470, L100.0490, L304.0140, L304.0470 #### [facility] [address] [place] [address] C-REACTIVE PROT Collected: 10/13/2017 Status: F Source: [place] [address]:[address] [place] [address] REPOSITORY TYPE CODE TESTS RESULT OUT OF RANGE REFERENCE UNITS LAB L100.0470 0.00-0.50 mg/dL Normal 0.29 C-REACTIVE PROT Result Comment: STATED NORMAL RANGE IS FOR ADULTS ONLY. NO NORMAL RANGE HAS BEEN ESTABLISHED FOR CHILDREN. Performed By: #### L100.0010, L100.0470, L100.0490, L304.0140, L304.0470 #### [facility] [address] [place] [address] RHEUMATOID FACT Collected: 10/13/2017 Status: F Source: [address] REPOSITORY TYPE CODE TESTS RESULT OUT OF RANGE REFERENCE UNITS LAB L100.0490 0-14 IU/mL Normal RHEUMATOID FACT 12 Performed By: #### L100.0010, L100.0470, L100.0490, L304.0140, L304.0470 #### [facility] [address] [place] [address] TSH Collected: 10/13/2017 Status: F Source: [address] REPOSITORY TYPE CODE TESTS RESULT OUT OF RANGE REFERENCE UNITS LAB L304.0140 0.45-4.50 uIU/mL Normal TSH 2.01 Performed By: #### L100.0010, L100.0470, L100.0490, L304.0140, L304.0470 #### [facility] [address] [place] [address] VITAMIN D Collected: 10/13/2017 Status: F Source: [place] [address]:[address] [place] [address] REPOSITORY TYPE CODE TESTS RESULT OUT OF REFERENCE UNITS RANGE LAB L304.0470 30-100 ng/mL Low VITAMIN D 8.6 Performed By: #### L100.0010, L100.0470, L100.0490, L304.0140, L304.0470 #### [facility] [address] [place] [address] ESR Collected: 10/13/2017 Status: F Source: [facility] 11:15 AM HOSPITAL REPOSITORY TYPE CODE TESTS RESULT OUT OF RANGE REFERENCE UNITS LAB L200.1500 0-20 MM/HR High ESR 28 Performed By: #### L200.1500 #### [facility] [address] [place] [address] CBC Collected: 10/13/2017 Status: F Source: [facility] 11:15 AM HOSPITAL REPOSITORY TYPE CODE TESTS RESULT OUT OF RANGE REFERENCE UNITS LAB L200.0100 4.5-10.0 x10(3) Normal WBC 7.9 LAB L200.0200 3.30-5.00 x10(6) Normal RBC 4.47 LAB L200.0210 12.0-16.0 g/dL Normal HGB 13.7 LAB L200.0220 36.0-48.0 % Normal HCT 40.9 LAB L200.0230 80.0-99.0 fl Normal MCV 91.4 LAB L200.0240 28.5-32.9 pg Normal MCH 30.6 LAB L200.0250 33.0-36.0 g/dL Normal MCHC 33.5 LAB L200.0260 12.5-15.7 % Normal RDW 15.4 LAB L200.0270 150-450 X10(3) Normal PLT 200 LAB L200.0290 7.5-9.5 fl High MPV 10.0 LAB L200.0300 45.0-73.0 % Normal NEUT% 62.1 LAB L200.0310 16.0-48.0 % Normal LYMPH% 28.3 LAB L200.0320 4.3-11.2 % Normal MONO% 6.5 LAB L200.0330 0.5-4.9 % Normal EOS% 1.9 LAB L200.0340 0.0-1.0 % High BASO% 1.2 LAB L200.0350 1.40-6.50 x10(3) Normal NEUT# 4.90 LAB L200.0360 1.00-3.50 x10(3) Normal LYMPH# 2.20 LAB L200.0370 0.30-0.80 x10(3) Normal MONO# 0.50 LAB L200.0380 0.00-0.54 x10(3) Normal EOS# 0.20 LAB L200.0390 0.00-0.10 x10(3) Normal BASO# 0.10 Performed By: #### L200.0010 #### [facility] [address] [place] [address] C-REACTIVE PROT Collected: 10/13/2017 Status: F Source: [place] 11:15 [facility] [place] TYPE CODE TESTS RESULT OUT OF RANGE REFERENCE UNITS LAB L100.0470 0.00-0.50 mg/dL Normal 0.29 C-REACTIVE PROT Result Comment: STATED NORMAL RANGE IS FOR ADULTS ONLY. NO NORMAL RANGE HAS BEEN ESTABLISHED FOR CHILDREN. Performed By: #### L100.0470, L100.0490, L304.0470 #### [facility] [address] [place] [address] RHEUMATOID FACT Collected: 10/13/2017 Status: F Source: [place] [address]:15 [facility] [place] TYPE CODE TESTS RESULT OUT OF RANGE REFERENCE UNITS LAB L100.0490 0-14 IU/mL Normal RHEUMATOID FACT 12 Performed By: #### L100.0470, L100.0490, L304.0470 #### [facility] [address] [place] [address] VITAMIN D Collected: 10/13/2017 Status: F Source: [place] [address]:15 [facility] [place]IT[place] TYPE CODE TESTS RESULT OUT OF REFERENCE UNITS RANGE LAB L304.0470 30-100 ng/mL Low VITAMIN D 8.6 Performed By: #### L100.0470, L100.0490, L304.0470 #### [facility] [address] [place] [address] TSH Collected: 10/13/2017 Status: F Source: [facility] 11:15 [facility] REPOSITORY TYPE CODE TESTS RESULT OUT OF RANGE REFERENCE UNITS LAB L304.0140 0.45-4.50 uIU/mL Normal TSH 2.01 Performed By: #### L304.0140 #### [facility] [address] [place] [address] CCPIGGIGA Collected: 10/13/2017 Status: F Source: [place] 11:15 [facility] [place] TYPE CODE TESTS RESULT OUT OF RANGE REFERENCE UNITS LAB L801.4200 0-19 units Normal CCPIGGIGA 5 Result Comment: Negative <20 Weak positive 20 - 39 Moderate positive 40 - 59 Strong positive >59 Performed at: [facility] Lab[address] [id number] Straw Hat Presser: Neli Belle MD, Phone: [phone] Performed By: #### L801.4200 #### [place] [address] THERAPY NT Observed: 09/14/2017 Status: COMPLETED Source: [place] 10:06 AM [facility] REPOSITORY HNO ID: [id number] Author: Provider [facility] Service: (none) Author Type: Physician Type: Therapy (PT/OT/Speech/Resp) Filed: 06/29/2018 1:50 PM Note [facility]: [facility] [place] [address] O[facility] THERAPY Patient: RASHAWN ALMEIDA VINCE T M.D. [id number] [age] F Status: REG RCR OT OCCUPATIONAL THERAPY DISCHARGE SUMMARY DATE: 09/09/2017 MEDICAL DIAGNOSES: 1. Primary osteoarthritis involving multiple joints. 2. Age related osteoporosis without current pathological fracture. 3. Low Vitamin D level. THERAPY DIAGNOSES: 1. Pain. 2. Decreased strength. 3. Edema. ONSET: January 2017 SUMMARY: The patient was seen for a total of 9 appointments from 08/03/2017 through 09/09/2017. Treatment included fluidotherapy, ultrasound, strengthening exercises, and education with a home program. GOAL STATUS: 1. Patient to report a 25-50% improvement with pain in the left wrist/elbow. Goal met. Initial pain rating was 8-9/10. Discharge pain rating is 3/10. 2. Increase left cost estimator strength to 20 pounds. Goal met. Strength improved from 7 to 24 pounds. 3. Increase left pinch strengths by 2-4 pounds. Goal met. Lateral pinch increased from 3 to 13 pounds, 3 point pinch increased from 2 to 8 pounds, 2 point pinch increased from 1 to 9 pounds. 4. Patient to be able to resume playing her guitar. Goal in progress. She has played some over the last several weeks, although not as much as she would like to. Pain is still her limiting factor with playing the guitar. The patient still complains that her left ring finger locks up. She also has occasional complaints of hand cramps. She is to see Dr. Louis regarding the left ring finger. She was seen in OT with a primary complaint of left wrist pain. This has improved significantly over the last several weeks. Strength has also improved nicely. No further OT is recommended at this time. Thank you for this referral. Dictated By: ODESSA PRITCHETT OTR/L Signed : ODESSA PRITCHETT OTR/Lyle 09/14/17 1007 << Signature on File>> Reported By: ODESSA PRITCHETT/Lyle Signed By: ODESSA PRITCHETT/Lyle Tests performed at: [place] [address] OCCUPATIONAL THERAPY Observed: 09/14/2017 Status: F Source: [place] 10:06 AM [facility] [address] [address] OCCUPATIONAL THERAPY Patient: RASHAWN ALMEIDA VINCE T M.D. [id number] [age] F Status: REG RCR OT OCCUPATIONAL THERAPY DISCHARGE SUMMARY DATE: 09/09/2017 MEDICAL DIAGNOSES: 1. Primary osteoarthritis involving multiple joints. 2. Age related osteoporosis without current pathological fracture. 3. Low Vitamin D level. THERAPY DIAGNOSES: 1. Pain. 2. Decreased strength. 3. Edema. ONSET: January 2017 SUMMARY: The patient was seen for a total of 9 appointments from 08/03/2017 through 09/09/2017. Treatment included fluidotherapy, ultrasound, strengthening exercises, and education with a home program. GOAL STATUS: 1. Patient to report a 25-50% improvement with pain in the left wrist/elbow. Goal met. Initial pain rating was 8-9/10. Discharge pain rating is 3/10. 2. Increase left cost estimator strength to 20 pounds. Goal met. Strength improved from 7 to 24 pounds. 3. Increase left pinch strengths by 2-4 pounds. Goal met. Lateral pinch increased from 3 to 13 pounds, 3 point pinch increased from 2 to 8 pounds, 2 point pinch increased from 1 to 9 pounds. 4. Patient to be able to resume playing her guitar. Goal in progress. She has played some over the last several weeks, although not as much as she would like to. Pain is still her limiting factor with playing the guitar. The patient still complains that her left ring finger locks up. She also has occasional complaints of hand cramps. She is to see Dr. Louis regarding the left ring finger. She was seen in OT with a primary complaint of left wrist pain. This has improved significantly over the last several weeks. Strength has also improved nicely. No further OT is recommended at this time. Thank you for this referral. Dictated By: NILS RENE/Lyle Signed : ODESSA PRITCHETT/Lyle 09/14/17 1007 << Signature on File>> Reported By: ODESSA PRITCHETT/Lyle Signed By: ODESSA PRITCHETT/Lyle Tests performed at: [address] [address] ED PROV NOTE Observed: 08/30/2017 Status: COMPLETED Source: [place] 9:59 AM [facility] REPOSITORY [facility] ID: [id number] Author: Provider [facility] Service: (none) Author Type: Physician Type: ED Provider Notes Filed: 06/29/2018 1:20 PM Note Text: [place] [address] HEALTH INFORMATION MANAGEMENT EMERGENCY DEPARTMENT REPORT Patient: RASHAWN ALMEIDA KATHY NP-C as dictated by DAREN LOREDO [id number] [age] F Status: [facility] ER ED Date of Service: 08/29/17 CHIEF COMPLAINT/HISTORY OF PRESENT ILLNESS Shortness of breath, chest discomfort which the patient describes as heartburn for the past 2 weeks and diarrhea today. She states that she had recent pneumonia and is feeling short of breath again and is describing her chest discomfort as a burning sensation that starts in her epigastric area and goes up into her throat. She states it has been going on for about 2 weeks and it is really starting to bother her. She has no other complaints today. She states that she does have a productive cough that is just clear phlegm and the diarrhea that just started this morning. She has had four episodes of it. She denies any nausea or vomiting at this time. She does come in frequently for various complaints. She presents today via wheelchair for multiple complaints, shortness of breath and heartburn being the major complaints that she is having. ALLERGIES She has no known drug allergies. SOCIAL HISTORY She is . Denies any drug, alcohol or tobacco use. PAST SURGICAL HISTORY Major surgeries she has had hysterectomy, cholecystectomy, tubal ligation. She has had two hernia repairs and some orthopedic surgeries. 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 PHYSICAL EXAMINATION Her vitals are all stable as documented on the chart. The patient is a 62-year-old female who is very well-known to us here in the ER. She is alert and oriented x3, answers questions appropriately. She actually has no signs of shortness of breath. She has been talking in full sentences and has been conversing on her cell phone the entire time she has been here without any difficulty. Her head is atraumatic, normocephalic. Her HEENT exam is unremarkable. Her lungs are clear. Respirations are nonlabored. Heart rate and rhythm are regular. Abdomen is soft, nontender, nondistended. Bowel sounds x4. Extremities are well perfused with good range of motion and strength bilaterally and equally and no neurological deficits on exam. EMERGENCY DEPARTMENT Course We did do a couple of labs on her, CBC, BMP and cardiac enzymes, all of which came back within normal limits. Did a chest x-ray on her and that came back negative for pneumonia or any other infectious process. I did give her a GI cocktail here for her stomach which she states she had really good results with. Essentially her examination and diagnostic studies are completely negative here. EKG was also normal sinus as well. At this time, I do believe that she is just experiencing problems with chronic gastroesophageal reflux disease. She does take Zantac but it has not been effective for her. At this point I am going to put her on Prevacid. I did instruct her to follow up with her primary care physician in the next couple weeks to just have a follow-up check to see how she is doing on the new medication. She is going to be discharged home in stable condition. IMPRESSION Gastroesophageal reflux disease. <Electronically signed by DAREN LOREDO> 08/31/17 0833 ABHI SANDOVAL cc: ABHI SANDOVAL << Signature on File>> Reported By: ABHI SANDOVAL Signed By: ABHI SANDOVAL Tests performed at: [address] [address] ED REPORT Observed: 08/30/2017 Status: F Source: [facility] 9:59 AM [place] [address] HEALTH INFORMATION MANAGEMENT EMERGENCY DEPARTMENT REPORT Patient: RASHAWN ALMEIDA ABHI SANDOVAL as dictated by DAREN LOREDO [id number] [age] F Status: [facility] ER ED Date of Service: 08/29/17 CHIEF COMPLAINT/HISTORY OF PRESENT ILLNESS Shortness of breath, chest discomfort which the patient describes as heartburn for the past 2 weeks and diarrhea today. She states that she had recent pneumonia and is feeling short of breath again and is describing her chest discomfort as a burning sensation that starts in her epigastric area and goes up into her throat. She states it has been going on for about 2 weeks and it is really starting to bother her. She has no other complaints today. She states that she does have a productive cough that is just clear phlegm and the diarrhea that just started this morning. She has had four episodes of it. She denies any nausea or vomiting at this time. She does come in frequently for various complaints. She presents today via wheelchair for multiple complaints, shortness of breath and heartburn being the major complaints that she is having. ALLERGIES She has no known drug allergies. SOCIAL HISTORY She is . Denies any drug, alcohol or tobacco use. PAST SURGICAL HISTORY Major surgeries she has had hysterectomy, cholecystectomy, tubal ligation. She has had two hernia repairs and some orthopedic surgeries. 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 PHYSICAL EXAMINATION Her vitals are all stable as documented on the chart. The patient is a 62-year-old female who is very well-known to us here in the ER. She is alert and oriented x3, answers questions appropriately. She actually has no signs of shortness of breath. She has been talking in full sentences and has been conversing on her cell phone the entire time she has been here without any difficulty. Her head is atraumatic, normocephalic. Her HEENT exam is unremarkable. Her lungs are clear. Respirations are nonlabored. Heart rate and rhythm are regular. Abdomen is soft, nontender, nondistended. Bowel sounds x4. Extremities are well perfused with good range of motion and strength bilaterally and equally and no neurological deficits on exam. EMERGENCY DEPARTMENT Course We did do a couple of labs on her, CBC, BMP and cardiac enzymes, all of which came back within normal limits. Did a chest x-ray on her and that came back negative for pneumonia or any other infectious process. I did give her a GI cocktail here for her stomach which she states she had really good results with. Essentially her examination and diagnostic studies are completely negative here. EKG was also normal sinus as well. At this time, I do believe that she is just experiencing problems with chronic gastroesophageal reflux disease. She does take Zantac but it has not been effective for her. At this point I am going to put her on Prevacid. I did instruct her to follow up with her primary care physician in the next couple weeks to just have a follow-up check to see how she is doing on the new medication. She is going to be discharged home in stable condition. IMPRESSION Gastroesophageal reflux disease. <Electronically signed by DAREN LOREDO> 08/31/17 0833 ABHI SANDOVAL cc: ABHI SANDOVAL << Signature on File>> Reported By: ABHI SANDOVAL Signed By: BORDENKIRCHER,ABHI TRACE EVIDENCE TECHNICIAN-C Tests performed at: [address] [address] ED PROV NOTE Observed: 08/30/2017 Status: COMPLETED Source: [place] 8:07 AM [facility] REPOSITORY HNO ID: [id number] Author: Sari Terrell DO Service: (none) Author Type: Physician Type: ED Provider Notes Filed: 06/29/2018 1:19 PM Note Text: [place] [address] HEALTH INFORMATION MANAGEMENT EMERGENCY DEPARTMENT REPORT Patient: RASHAWN ALMEIDA SARI TERRELL D.O. [id number] [age] F Status: DEP ER ED Date of Service: 08/29/17 CHIEF COMPLAINT Shortness of air, heartburn for the last couple of weeks. The patient has seen her doctor on and off advised to come to the emergency department if the office was closed which it is today. The patient is not having any fevers. On examination she is speaking in full sentences, no distress. Respirations are clear to auscultation bilaterally. Heart is regular rate and rhythm. Abdomen is soft without tenderness to palpation. She is in no apparent distress. Her skin is dry and intact. She has some very mild epigastric tenderness to palpation. The patient was seen and evaluated with the nurse practitioner. I agree with the assessment and plan. I did individually evaluate the patient. Please see nurse practitioner's note for further details. <Electronically signed by SARI TERRELL D.O.> 09/02/17 1231 SARI TERRELL D.O. cc: SARI TERRELL D.O. << Signature on File>> Reported By: SARI TERRELL D.O. Signed By: SARI TERRELL D.O. Tests performed at: [address] [address] EMERGENCY DEPARTMENT Observed: 08/30/2017 Status: F Source: [place] REPORT 8:07 AM [facility] [place] [place] [address] HEALTH INFORMATION MANAGEMENT EMERGENCY DEPARTMENT REPORT Patient: RASHAWN ALMEIDA SARI TERRELL D.O. [id number] [age] F Status: [facility] ER ED Date of Service: 08/29/17 CHIEF COMPLAINT Shortness of air, heartburn for the last couple of weeks. The patient has seen her doctor on and off advised to come to the emergency department if the office was closed which it is today. The patient is not having any fevers. On examination she is speaking in full sentences, no distress. Respirations are clear to auscultation bilaterally. Heart is regular rate and rhythm. Abdomen is soft without tenderness to palpation. She is in no apparent distress. Her skin is dry and intact. She has some very mild epigastric tenderness to palpation. The patient was seen and evaluated with the nurse practitioner. I agree with the assessment and plan. I did individually evaluate the patient. Please see nurse practitioner's note for further details. <Electronically signed by SARI TERRELL D.O.> 09/02/17 1231 SARI TERRELL D.O. cc: SARI TERRELL D.O. << Signature on File>> Reported By: SARI TERRELL D.O. Signed By: SARI TERRELL D.O. Tests performed at: [address] [address] CBC Collected: 08/29/2017 Status: F Source: [facility] 12:22 PM HOSPITAL REPOSITORY TYPE CODE TESTS RESULT OUT OF RANGE REFERENCE UNITS LAB L200.0100 4.5-10.0 x10(3) High WBC 11.6 LAB L200.0200 3.30-5.00 x10(6) Normal RBC 4.73 LAB L200.0210 12.0-16.0 g/dL Normal HGB 13.5 LAB L200.0220 36.0-48.0 % Normal HCT 40.3 LAB L200.0230 80.0-99.0 fl Normal MCV 85.3 LAB L200.0240 28.5-32.9 pg Normal MCH 28.6 LAB L200.0250 33.0-36.0 g/dL Normal MCHC 33.6 LAB L200.0260 12.5-15.7 % Normal RDW 13.4 LAB L200.0270 150-450 X10(3) Normal PLT 235 LAB L200.0290 7.5-9.5 fl Normal MPV 8.5 LAB L200.0300 45.0-73.0 % Normal NEUT% 66.3 LAB L200.0310 16.0-48.0 % Normal LYMPH% 25.7 LAB L200.0320 4.3-11.2 % Normal MONO% 6.8 LAB L200.0330 0.5-4.9 % Low EOS% 0.4 LAB L200.0340 0.0-1.0 % Normal BASO% 0.8 LAB L200.0350 1.40-6.50 x10(3) High NEUT# 7.70 LAB L200.0360 1.00-3.50 x10(3) Normal LYMPH# 3.00 LAB L200.0370 0.30-0.80 x10(3) Normal MONO# 0.80 LAB L200.0380 0.00-0.54 x10(3) Normal EOS# 0.00 LAB L200.0390 0.00-0.10 x10(3) Normal BASO# 0.10 Performed By: #### L200.0010 #### [facility] [address] [place] [address] [facility] Collected: 08/29/2017 Status: F Source: [facility] 12:22 PM HOSPITAL REPOSITORY TYPE CODE TESTS RESULT OUT OF RANGE REFERENCE UNITS LAB L100.0060 82-115 mg/dL GLUCOSE Normal 90 LAB L100.0110 8-23 mg/dL BUN Normal 15 LAB L100.0131 0.50-0.90 mg/dL Normal CREATININE 0.83 LAB L100.0140 8.8-10.2 mg/dL CALCIUM Normal 9.0 LAB L100.0150 135-145 mmol/L SODIUM Normal 140 LAB L100.0160 3.5-5.0 mmol/L Normal POTASSIUM 5.0 LAB L100.0170 98-107 mmol/L CHLORIDE Normal 104 LAB L100.0180 22-29 mmol/L TCO2 Normal 24 LAB L100.0185 15-22 mmol/L ANION Normal GAP 17.0 LAB L100.0274 eGFR Normal nonAFR Rohan > 60 ml/Min/1.73m 2 LAB L100.0275 eGFR if Normal AFR ROHAN > 60 ml/min/1.73m 2 Result Comment: eGFR >= 60 Indicates normal kidney function. * eGFR IS AN ESTIMATE * (AFR ROHAN = ) (non-AFR AM = NON-) MDRD calculation used in the eGFR should not be used to dose medications. For further limitations of the eGFR please refer to the Physician Website or the National Kidney Disease Education Program website (www.nkdep.nih.gov). Performed By: #### L100.0010 #### [facility] - LABORATORY [address] [place] [address] CK-MB Collected: 08/29/2017 Status: F Source: [facility] 12:22 PM HOSPITAL REPOSITORY TYPE CODE TESTS RESULT OUT OF RANGE REFERENCE UNITS LAB L301.0100 1.0-5.34 ng/mL Normal CK-MB 1.9 Performed By: #### L301.0100, L301.0105, L301.0120 #### [facility] [address] [place] [address] CK Collected: 08/29/2017 Status: F Source: [facility] 12:22 PM HOSPITAL REPOSITORY TYPE CODE TESTS RESULT OUT OF RANGE REFERENCE UNITS LAB L301.0105 26-192 IU/L Normal CK 47 Result Comment: Reference range changed due to reformulated reagent. Effective 03/16/17 Relative Index is not calculated as it is only applicable to CK values greater than or equal to 192 IU/L. NO RELATIVE INDEX PERFORMED Performed By: #### L301.0100, L301.0105, L301.0120 #### [facility] - LABORATORY [address] [place] [address] TROPONIN T Collected: 08/29/2017 Status: F Source: [place] 12:22 PM [facility] REPOSITORY TYPE CODE TESTS RESULT OUT OF RANGE REFERENCE UNITS LAB L301.0120 0-0.010 ng/mL Normal TROPONIN T <0.010 Performed By: #### L301.0100, L301.0105, L301.0120 #### [facility] - LABORATORY [address] [place] [address] CHEST (TWO VIEWS) Observed: 08/29/2017 Status: F Source: [facility] - CXR 12:10 PM HOSPITAL REPOSITORY [address] [address] Name: RASHAWN ALMEIDA Phys: ABHI SANDOVAL TRACE EVIDENCE TECHNICIAN-William : [birth year] Age: 62 Sex: F Acct: [id number] Loc: ED Exam Date: 08/29/17 Status: [facility] ER Radiology No.: [id number] Unit Number: [id number] Exam # Type/Exam [id number] RAD / CHEST (TWO VIEWS) - CXR Two-view chest [] Clinical Indication: Shortness of breath, recent pneumonia, chest discomfort Comparison: 08/18/2017 Findings: The heart is mildly enlarged but stable in contour given technical and inspiratory differences. There is no acute infiltrate or consolidation confirmed. There is partial eventration of the right hemidiaphragm anteriorly. There are degenerative changes in the spine. Impression: No acute process Professional interpretation provided by [facility], [place] on [id number]. Thank you for this referral. <<Signature on File>> Reported By: YANNI SHAW MD Signed In NovaPro By: YANNI SHAW MD << Signature on File>> Reported By: YANNI SHAW MD Signed By: YANNI SHAW MD Tests performed at: [address] [address] ELECTROCARDIOGRAM Observed: 08/29/2017 Status: F Source: [place] 11:35 AM [facility] [place] [address] HEALTH INFORMATION MANAGEMENT ELECTROCARDIOGRAM REPORT Patient: RASHAWN ALMEIDA Ordering: SARI TERRELL D.O. [id number] [age] F Exam Date: 08/29/17 Report #: [id number] Status: DEP ER ED SINUS BRADYCARDIA VOLTAGE CRITERIA FOR LVH ABNORMAL ECG NO SIG CHANGE FROM PREVIOUS TRACING Physician Event Mgr: SARI TERRELL D.O. Ventricular Rate EK /min R-R Interval: 1054 ms P Wave duration: 119 ms QRS duration: 78 ms P-R interval: 158 ms Q-T interval: 398 ms Q-T interval (corrected): 389 ms Q-T Dispersion: ms P wave axis: 31 deg QRS axis: -4 deg T axis: -9 deg Signed in P[place]IS 08/29/17 2355 SARI TERRELL D.O. cc: << Signature on File>> Reported By: SARI TERRELL D.O. Signed By: SARI TERRELL D.O. Tests performed at: [place] [address] ALLERGIES ALLERGIES DATE TYPE / CODE NAME / CODE REACTION SEVERITY SOURCE 02/05/2018 Drug Sulfa UNKNOWN [facility] Allergy/4160 (Sulfonamide [facility] [address](SNOMED Antibiotics)/ Repository CT) [id number](RX NORM) ENCOUNTERS ENCOUNTERS ADMIT/DISCHARGE ACCOUNT NUMBER ADMITTING ENCOUNTER LOCATION SOURCE CLASS 08/04/2018 [id number] Ambulatory UNIBuilding: [facility] Repository 07/26/2018 [id number] Ambulatory [facility] Hospital ding:RAD Repository 07/21/2018/07/28/20 [id number] Ambulatory UNIBuilding: [address] Repository 07/12/2018/07/12/20 [id number] Emergency UNIBuilding: [address] Repository 07/04/2018 [id number] Ambulatory UPSBuilding: [address] Repository 06/13/2018/10/19 [id number] NATALIIA, Inpatient UNIBuilding: [place] M Encounter 3[place]: [facility] 3904[facility]: B Hospital Repository 05/02/2018/05/22/20 [id number] Ambulatory UNIBuilding: [address] Repository 04/25/2018/04/28/20 [id number] Ambulatory UNIBuilding: [address] Hospital Repository 04/17/2018 [id number] Ambulatory Building:[facility] Repository 03/29/2018 [id number] Ambulatory UNIBuilding: [facility] Repository 03/21/2018/03/24/20 [id number] ANTALIIA, Inpatient UNIBuilding: [place] M Encounter 3SWESTRoom: [facility] 3930[facility]: B Hospital Repository 02/27/2018/02/28/20 [id number] Ambulatory UNIBuilding: [address] Repository 02/05/2018/02/06/20 [id number] Emergency CHBuilding:E [place] [address] [place] [address] Repository 01/29/2018 [id number] Ambulatory UNIBuilding: [facility] Repository 01/28/2018/01/29/20 [id number] Emergency UNIBuilding: [address] Repository 01/27/2018/02/26/20 [id number] Ambulatory UNIBuilding: [address] Repository 01/13/2018/01/27/20 [id number] Ambulatory UNIBuilding: [address] Repository 01/09/2018 [id number] Ambulatory UNIBuilding: [facility] Repository 12/09/2017 [id number] Ambulatory [place]:[facility] Repository 12/01/2017 [id number] Ambulatory UNIBuilding: [facility] Repository 11/28/2017 [id number] Ambulatory [place] ding:[facility] Repository 11/28/2017/12/10/19 [id number] Ambulatory UNIBuilding: [address] Repository 11/11/2017/11/12/19 [id number] Emergency UNIBuilding: [place] [address] ED [facility] Hospital Repository 10/28/2017/03/31 [id number] Ambulatory UNIBuilding: [place] [address] PT [facility] Hospital Repository 10/24/2017/10/28/19 [id number] MASOUD FINLEY Inpatient UNIBuilding: [place] [address] D Encounter 3SEASTRoom: [facility] 3912Bed: B Hospital Repository 10/24/2017/10/24/19 [id number] Emergency UNIBuilding: [place] [address] ED [facility] Hospital Repository 10/24/2017/10/24/19 [id number] Ambulatory UNIBuilding: [place] [address] PT [facility] Hospital Repository 10/17/2017/10/17/19 [id number] PRADEEP MIX Ambulatory Building:[address] System Repository 10/13/2017 [id number] Ambulatory [place] ding:NPT [facility] Hospital Repository 10/10/2017/10/10/19 [id number] Ambulatory CHBuilding:Donya Heard [address] [place] [address] Repository 09/08/2017 [id number] Ambulatory UPSBuilding: [address] Hospital Repository 08/30/2017/09/09/19 [id number] Ambulatory UNIBuilding: [place] [address] OT [facility] Hospital Repository 08/29/2017/08/29/19 [id number] Emergency UNIBuilding: [place] [address] ED [facility] Hospital Repository 08/18/2017 [id number] Ambulatory UPSBuilding: [address] Repository PAYERS PAYERS ENCOUNTER GUARANTOR PAYER SUBSCRIBER SOURCE 08/04/2018 RASHAWN Primary RASHAWN [facility] [id number] [facility] Insurance:[facility] FRITZY APT MEDICAREPolicy Number: Repository HENRIK, [id number] [place] [address]Bcw: Date:2017-08-29 (WK) 08/04/2018 Secondary [facility] Insurance:[facility] cy Number: Repository [id number] Date:4400-64-23XBWWRAB [place], [place] [address]BH: 07/26/2018 RASHAWN I Primary RASHAWNBRYN Link [id number] [facility] Insurance:[facility]: Community ALLEYAPT MEDICARE SENIOR [id number] Hospital ANEWCOMEMELYN, ADVANTAPolicy Number: [place]ository [place] [address]Xem: [id number] Date:6192-70-16UW [address] () 370251CSODHLN, [place] [address]AB: 07/26/2018 Secondary RASHAWN I [place] Insurance:MEDICAIDWVU Medicine [facility] HospitalB: [facility] cy Number: [id number] Hospital [id number] Repository Date:2018-07-26 07/26/2018 Tertiary NOT GIVENUNK Nikolay Insurance:SELF PAY [facility] INS[facility]ANCE[facility] Number: Effective Repository Date:2018-07-26 07/21/[address] Insurance:[facility] ALLEY APT MEDICAREPolicy Number: Repository PATNorberto, [id number] [place] [address]Glr: Date:2017-08-29 () 07/21/2018 Secondary [facility] Insurance:[facility] cy Number: Repository [id number] Date:0105-82-74UGCGMPMMEMPHIS, [place] [address]EF: 07/12/2018 [place] [address] [address] Insurance:[facility] ALLEY APT MEDICAREPolicy Number: Repository ANEWCOMERSCHARLY, [id number] [place] [address]Lub: Date:2017-08-29 () 07/12/2018 Secondary [facility] Insurance:[facility] Hospital cy Number: Repository [id number] Date:5533-54-56SHKYJXXMEMPHIS, [place] [address]SJ: 07/04/[address] Insurance:MEDICARE Hospital ALLEY APT (UPS USE ONLY)Policy Repository ANEWCOMERSTO, Number: [place] [address]Sky: [id number] Date: () 07/04/2018 Secondary [facility] Insurance:[facility]ICAID[facility] cy Number: Repository [id number] Date:6091-49-91HDHXFEEMEMPHIS, [place] [address]ZW: 06/13/2018 [facility] RASHAWN SHAW [place] [address] [address] Insurance:[facility] MEDICAREPolicy Number: Repository ANEWCOMERONALD [id number] [place] [address]Hku: Date:2017-08-29 () 06/13/2018 Secondary [facility]HAWN [facility] Insurance:[facility] cy Number: Repository [id number] Date:5527-78-66XWWCROZMEMPHIS, [place] [address]NE: 05/02/2018 [facility] RASHAWN ALMEIDA[address] Insurance:[facility] MEDICAREPolicy Number: Repository ANEWCOMERONALD [id number] [place] [address]Thg: Date:2017-08-29 () 05/02/2018 [facility] Insurance:[facility]ICAID[facility] Hospital cy Number: Repository [id number] Date:8898-63-21AFEKKWUMEMPHIS, [place] [address]PO: 04/25/2018 [facility] RASHAWN ALMEIDA[address] Insurance:[facility] MEDICAREPolicy Number: Repository ANEWCOMERONALD [id number] [place] [address]Eie: Date:2017-08-29 () 04/25/2018 Secondary RASHAWNBRYN SHAW [facility] Insurance:[facility] cy Number: Repository [id number] Date:5013-22-96XSEKVAIMEMPHIS, [place] [address]VU: 04/17/2018 [facility]WN [facility]ES [facility] RASHAWN BARNES Roxanne CHARITYB: Insurance:[facility] [id number] MEDICARE [id number] [facility] ADVANTAGEPolicy [facility] APT Repository SYLVIECOMERSTOZachariahN, Number: ANEZachariahCOMERNOALD, [place] [address]Nyv: [id number] [place] [address]Uke: Date:[facility] (HP) [address]SOPRUITIYE, [place] () [address]AF: 04/17/2018 Secondary RASHAWN BARNES [facility] Insurance:MEDICAIDWV[facility] HospitalB: [facility] cy Number: [id number] System [id number] [facility] APT Repository Date: LONIWCOMERONALD, [place] [address]Qzu: () 03/29/[address] Insurance:[facility] MEDICAREPolicy Number: Repository ANEWCOMERSDAMIANN, [id number] [place] [address]Rfv: Date:2017-08-29 (HP) 03/29/2018 Secondary [facility] Insurance:[facility]ICA[facility] cy Number: Repository [id number] Date:9599-91-36YIUGJLAMEMPHIS, [place] [address]EY: 03/21/[address] Insurance:[facility] APT MEDICAREPolicy Number: Repository ANEWCOMERSTOZachariahN, [id number] [place] [address]Mwg: Date:2017-08-29 () 03/21/2018 Secondary [facility] Insurance:[facility]IDUpmc [facility] cy Number: Repository [id number] Date:5559-31-56OGPPCXNMEMPHIS, [place] [address]XI: . 02/27/[address] Insurance:[facility] APT MEDICAREPolicy Number: Repository [place]EW[place]ST[place], [id number] [place] [address]Vzv: Date:2017-08-29 (HP) 02/27/2018 Secondary [facility] Insurance:[facility] cy Number: Repository [id number] Date:6198-06-23VIMGEHXMEMPHIS, [place] [address]DR: 02/05/2018 RASHAWN BARNES [address] Insurance:[facility]: [facility] MEDICAREPolicy Number: [id number] [facility] LONICOMERSTO, [id number] [facility] Repository [place] [address]Hjb: Date:[facility], [id number] [place] [address] [place] [address]Btn: () [address]VT: [phone] (HP) 02/05/2018 Secondary [facility] Insurance:MEDICAIDPoli SMITHDOB: [facility] cy Number: [id number] [facility] [id number] [facility] APT Repository Date:2013-04-07 - [facility], 4903-51-63PH [place]OX [place] [address]Prb: [address] [address]UK: (HP) 01/29/2018 [facility]70[facility] Insurance:[facility] MEDICAREPolicy Number: Repository LONICOMEMARLIKINDRED [facility] [id number] [place] [address]Blt: Date:2017-08-29 (HP) 01/29/2018 Secondary [facility] Insurance:[facility] Hospital cy Number: Repository [id number] Date:2266-97-43JMYVPAGMEMPHIS, [place] [address]II: 01/28/[address] Insurance:[facility] MEDICAREPolicy Number: Repository ANEWCOMEMARLICURAHEALTH [facility], [id number] [place] [address]Plh: Date:2017-08-29 () 01/28/2018 Secondary [facility] Insurance:[facility] cy Number: Repository [id number] Date:0799-47-36SHQZDGSMEMPHIS, [place] [address]TT: 01/27/[address] Insurance:[facility] MEDICAREPolicy Number: Repository ANEWCOMERSCHARLY, [id number] [place] [address]Jph: Date:2017-08-29 () 01/27/2018 Secondary [facility] Insurance:[facility] cy Number: Repository [id number] Date:0934-54-82LXHQXBAMEMPHIS, [place] [address]VU: 01/13/[address] Insurance:[facility] MEDICAREPolicy Number: Repository ANEWCOMERSTOMAICO, [id number] [place] [address]Gqe: Date:2017-08-29 () 01/13/2018 [facility] Insurance:[facility] cy Number: Repository [id number] Date:0688-67-54CPISRSK [place], [place] [address]YO: 01/09/2018 [facility]70[facility] Insurance:[facility] MEDICAREPolicy Number: Repository [place]EW[place]ST[place], [id number] [place] [address]Ixz: Date:2017-08-29 () 01/09/2018 [facility] Insurance:MEDICAIDPoli Hospital cy Number: Repository [id number] Date:3090-10-67OGYQAGZMEMPHIS, [place] [address]BA: 12/09/2017 RASHAWN Collins [facility] [id number] Insurance:[facility]ELecom [facility] ALLEY APT cy Number: Repository ANEWCOMERSCHARLY, [id number] [place] [address]Qhr: Date: () 12/09/2017 Secondary [facility]WNBRYN [facility]ID[facility] Insurance:MEDICAIDLecom [facility] cy Number: Repository [id number] Date:3628-36-68MVKUSIAMEMPHIS, [place] [address]QM: 12/09/2017 Tertiary RASHAWNBRYN [facility]ID[facility] Insurance:MEDICARE Hospital DISABILITYPolicy Repository Number: [id number] Date:2001-11-27 12/01/[address] [facility] Insurance:[facility] APT MEDICAREPolicy Number: Repository ANEWCOMERSTOMAICO, [id number] [place] [address]Tux: Date:2017-08-29 () 12/01/[address] [facility] Insurance:MEDICAIDLe[facility] cy Number: Repository [id number] Date:8861-46-55FEWMJNJMEMPHIS, [place] [address]WJ: 11/28/2017 RASHAWN [facility] AL[facility]IDAW[facility] DEBBIE CAPONE Insurance:[facility] APT MEDICAREPolicy Number: Repository ANEWCOMERSCHARLY, [id number] [place] [address]Nse: Date:2017-08-29 () 11/28/2017 Secondary RASHAWN [facility] Insurance:[facility]ICAIDLe[facility] Hospital cy Number: Repository [id number] Date:1653-09-09JKZDGCQMEMPHIS, [place] [address]WF: 11/28/2017 RASHAWN Collins [facility]RA[facility]ONW[facility] [id number] [address] Insurance:[facility] APT MEDICAREPolicy Number: Repository ANEWCOMERSTOZachariahN, [id number] [place] [address]Gtv: Date:2017-08-29 (HP) 11/28/2017 Secondary JAYSHREE [facility] Insurance:[facility]ICA[facility]Pol[facility] Hospital cy Number: Repository [id number] Date:9876-40-01UJAHPOZMEMPHIS, [place] [address]RM: 11/11/2017 RASHAWN Collins Primary RASHAWN SHAW [facility] [place] Insurance:[facility] MEDICAREPolicy Number: Repository HENRIK, [id number] [place] [address]Lez: Date:2017-08-29 (HP) 11/11/2017 Secondary [facility] Insurance:[facility] cy Number: Repository [id number] Date:6262-35-43VNRTEPQMEMPHIS, [place] [address]NN: 10/28/2017 RASHAWN Collins Primary RASHAWN [place] [address] [address] Insurance:[facility] APT MEDICAREPolicy Number: Repository ANEWCOMERONALD, [id number] [place] [address]Xqz: Date:2017-08-29 () 10/28/2017 Secondary RASHAWNBRYN SHAW [facility] Insurance:[facility]ICA[facility] cy Number: Repository [id number] Date:7600-58-16OFMFMCUMEMPHIS, [place] [address]CV: 10/24/2017 RASHAWN Collins Primary JAYSHREEALEXANDRA ALMEIDAWright-[facility] [id number] Insurance:[facility] APT MEDICAREPolicy Number: Repository ANEWCOMERSCHARLY, [id number] [place] [address]Eqs: Date:2001-11-27 () 10/24/[address] [facility] Insurance:[facility] cy Number: Repository [id number] Date:6547-60-83LEQZZNCMEMPHIS, [place] [address]CI: 10/24/2017 RASHAWN Collins Primary RASHAWN [place] [address] [address] Insurance:[facility] APT MEDICAREPolicy Number: Repository ANEWCOMERONALD, [id number] [place] [address]Xym: Date:2017-08-29 () 10/24/2017 Secondary [facility] Insurance:[facility] cy Number: Repository [id number] Date:1055-25-42KIHYBAWMEMPHIS, [place] [address]JK: 10/24/2017 RASHAWN Collins Primary [address] Insurance:[facility] APT MEDICAREPolicy Number: Repository ANEWCOMERSCHARLY, [id number] [place] [address]Yqx: Date:2017-08-29 () 10/24/2017 Secondary [facility] Insurance:[facility] cy Number: Repository [id number] Date:1091-45-27TDNMKURMEMPHIS, [place] [address]GM: 10/17/2017 RASHAWN BARNES Primary RASHAWN Oliveira SMITHDOB: [facility] HealthCare MEDICARE [id number] System [facility] APT ADVANTAGEPolicy [facility] APT Repository SYLVIECOMERONALD, Number: ANEWCOMERSCHARLY, [place] [address]Puw: [id number] [place] [address]Gdu: Date:[facility] () [address] [place] [address] () [address]XB: 10/17/2017 Secondary RASHAWN Oliveira Insurance:MEDICAIDPoli SMITHDOB: HealthCare cy Number: [id number] System [id number] [facility] APT Repository Date: ANEWCOMERSCHARLY, [place] [address]Yqs: () 10/13/2017 RASHAWN Collins Primary [address] Insurance:[facility] APT MEDICAREPolicy Number: Repository [facility], [id number] [place] [address]Dui: Date: (HP) 10/13/2017 Secondary [facility] Insurance:[facility] cy Number: Repository [id number] Date:3337-41-84VAHXWPUMEMPHIS, [place] [address]SO: 10/10/2017 RASHAWN BARNES [address] Insurance:MEDICAREPoli SMITHDOB: [facility] cy Number: [id number] [facility], [id number] [facility] Repository [place] [address]Pzr: Date:6721-41-91VX [facility], 279374DLYBYIEH, [place] [address]Tiv: (HP) [address]AN: [phone] (HP) 10/10/2017 Secondary [facility] Insurance:MEDICAIDPoli SMITHDOB: [facility] cy Number: [id number] [facility] [id number] [facility] Repository Date:2013-04-07 - [facility], 7623-10-80GX [place]OX [place] [address]Mvl: 2645COLHOWELLS, [place] [address]OF: (HP) 09/08/2017 RASHAWN Collins Primary [address] Insurance:MEDICARE Hospital ALLEY APT (UPS USE ONLY)Policy Repository [facility], Number: [place] [address]Tkm: [id number] Date: (HP) 09/08/2017 Secondary [facility] Insurance:[facility] cy Number: Repository [id number] Date:5263-71-23BGAMXBJMEMPHIS, [place] [address]KT: 08/30/2017 RASHAWN Collins [address] Insurance:[facility] ALLEY APT MEDICAREPolicy Number: Repository ANEWCOMERSTOMAICO, [id number] [place] [address]Ifg: Date:2017-08-29 () 08/30/2017 [facility] Insurance:[facility] cy Number: Repository [id number] Date:0262-14-33ZBPLLCPMEMPHIS, [place] [address]VH: 08/29/[address] Insurance:[facility] MEDICAREPolicy Number: Repository [place], [id number] [place] [address]Vvp: Date:2017-08-29 () 08/29/2017 [facility] Insurance:[facility] cy Number: Repository [id number] Date:3523-90-16OPZBSTJMEMPHIS, [place] [address]UC: 08/18/[address] Insurance:MEDICARE Hospital ALLEY APT (UPS USE ONLY)Policy Repository LONIWCOMERSCHARLY, Number: [place] [address]Xqh: [id number] Date: () 08/18/2017 Secondary [facility] Insurance:[facility] cy Number: Repository [id number] Date:7913-20-29LYXVJFQMEMPHIS, [place] [address]KH:
== END ==
PROVIDERS: Referring Provider Anesthesiology Pain Medicine; Visit Provider Anesthesiology Pain Medicine
DX: M54.2 Cervicalgia (principal); M54.9 Dorsalgia, unspecified
CPT/HCPCS: 72040; 72100

== ENCOUNTER → 2018-09-26 15:31 | Outpatient (CLI) | payer MEDICARE, MEDICAID, SELFPAY ==
[2018-09-26 16:44] LABS: Amphetamine Urine VISTA NEGATIVE (<1000 ng/mL); Barbiturate Urine VISTA NEGATIVE (< 200 ng/mL); Benzodiazepine Urine VISTA POSITIVE (< 200 ng/mL); Cocaine Urine VISTA NEGATIVE (< 300 ng/mL); Ecstacy Urine VISTA NEGATIVE (< 500 ng/mL); Methadone Urine VISTA NEGATIVE (< 300 ng/mL); PCP Urine VISTA NEGATIVE (< 25 ng/mL); THC Urine VISTA NEGATIVE (< 50 ng/mL); Vista UDS pH Range 5
== END ==
PROVIDERS: Referring Provider Anesthesiology Pain Medicine; Visit Provider Anesthesiology Pain Medicine
DX: F11.20 Opioid dependence, uncomplicated (principal)
CPT/HCPCS: 80307